=== PATIENT | female | born 1950 | race Caucasian/White ===

== ENCOUNTER 2018-08-28 13:30 | Emergency (ER) | payer MEDICARE, OTHER, SELFPAY ==
--- NOTE | 2018-08-28 15:42 | RAD REPORT ---
EXAM DESCRIPTION: RAD - Chest Pa And Lat (2 Views) - 08/28/2018 2:56 pm CLINICAL HISTORY: Cough and congestion COMPARISON: March 2016 TECHNIQUE: PA and lateral views of the chest were obtained. FINDINGS: The lungs are fibrotic as a baseline. Interstitial pattern is not clearly different from c omparison. Extent of chronic disease could mask the earliest stages of an interstitial infiltrate. Lateral view shows masslike density at the anterior base. This is probably an enlarged pericardial fa t pad rather than a mass. However, CT chest imaging would be recommended to exclude mass or infiltrat e. Heart size is normal and central vasculature is within normal limits. No pleural effusion or pneu mothorax seen. No acute bony finding noted. No aortic abnormality. Right lung base findings telephoned to the referring clinician [id number] hours. IMPRESSION: New masslike density anterior right lung base could be an enlarging pericardial fat pad since 2015, focal infiltrate or mass lesion. Chronic interstitial lung disease is present potentially masking early interstitial edema or infiltra te.
[2018-08-28 16:06] LABS: Absolute Lymphocytes (CBC) 1.2 K/uL (0.7-4.9); Absolute Monocytes 0.5 K/uL (0.1-1.3); Absolute Neutrophil 5.7 K/uL (1.8-8.0); Basophils % 0.5 % (0-1.3); Eosinophils % 0.8 % (0-4.4); Hematocrit 40.2 % (36.0-45.0); Lymphocytes % 15.6 % (15.3-44.8); MPV 7.8 fL (7.6-11.3); Monocytes % 6.9 % (3.3-12.3); RBC Red Blood Cell Count 4.04 M/uL (3.86-4.86)
[2018-08-28 16:21] LABS: Potassium 4.3 mmol/L (3.5-5.1)
--- NOTE | 2018-08-28 17:17 | RAD REPORT ---
EXAM DESCRIPTION: CT - Thorax W/ Con - 08/28/2018 4:56 pm CLINICAL HISTORY: Cough, chills, abnormal chest film, history of uterine cancer COMPARISON: Two view chest August 28 TECHNIQUE: Dynamically enhanced 5 mm thick images of the chest were obtained during administration o f 100 mL non-ionic IV contrast. All CT scans are performed using dose optimization technique as appropriate and may include automated exposure control or mA/KV adjustment according to patient size. FINDINGS: No mass or infiltrate of the lung parenchyma. Patient has minimal apical and lung base sca rring changes. The right anterior lung base mass seen on chest film represents a pericardial fat pad that has enlarged since the 2016 chest examination. No pleural thickening or pleural effusion. No pne umothorax. No chest wall mass or abnormal axillary lymphadenopathy. No abnormal mediastinal or hilar mass or lymphadenopathy seen. No pericardial thickening or effusion. Coronary artery calcifications are present. Aortic atherosclerotic calcifications are present. IMPRESSION: Minimal scarring changes with no mass or infiltrate of the lung parenchyma. The new masslike density at the anterior right lung base is pericardial fat that has enlarged since 2 016 imaging.
--- NOTE | 2018-08-28 17:32 | ER ---
Nurse's Notes [facility] Name: Sigrid Angel Age: 67 yrs Sex: Female : 1950 Arrival Date: 08/28/2018 Time: 13:34 Bed 9 Private MD: Diagnosis: Acute upper respiratory infection, unspecified Presentation: 08/28 13:39 Presenting complaint: Patient states: in the last few days i have been coughing with hj green stuff; reports chills; took dayquil CATTLE DEHORNER;. Transition of care: patient was not received from another setting of care. Onset of symptoms was August 28, 2018. Risk Assessment: Do you want to hurt yourself or someone else? Patient reports no desire to harm self or others. Initial Sepsis Screen: Does the patient meet any 2 criteria? No. Patient's initial sepsis screen is negative. Does the patient have a suspected source of infection? No. Patient's initial sepsis screen is negative. Care prior to arrival: None. 13:39 Method Of Arrival: Ambulatory 13:39 Acuity: JAYE 4 hj Triage Assessment: 13:41 General: Appears in no apparent distress. uncomfortable, Behavior is calm, cooperative, hj appropriate for age. Pain: Complains of pain in body. Historical: - Allergies: 13:41 Codeine; hj 13:41 Sulfa (Sulfonamide Antibiotics); hj - PMHx: 13:41 Hypertension; uterus CA; hj - PSHx: 13:41 hip sx; Hysterectomy; hj - Immunization history:: Adult Immunizations up to date. - Social history:: Smoking status: Patient uses tobacco products, Patient uses alcohol. - Ebola Screening: : Patient negative for fever greater than or equal to 101.5 degrees Fahrenheit, and additional compatible Ebola Virus Disease symptoms Patient denies exposure to infectious person Patient denies travel to an Ebola-affected area in the 21 days before illness onset. Screenin:41 Abuse screen: Denies threats or abuse. Denies injuries from another. Nutritional hj screening: No deficits noted. Tuberculosis screening: No symptoms or risk factors identified. Fall Risk None identified. Assessment: 15:17 General: Appears in no apparent distress. comfortable, Behavior is calm, cooperative. mg2 Pain: Denies pain. Neuro: Level of Consciousness is awake, alert, obeys commands, Oriented to person, place, time, situation. Cardiovascular: Capillary refill < 3 seconds Patient's skin is warm and dry. Respiratory: Airway is patent Respiratory effort is even, unlabored, Respiratory pattern is regular, symmetrical. Respiratory: Reports cough that is non-productive. GI: No signs and/or symptoms were reported involving the gastrointestinal system. : No signs and/or symptoms were reported regarding the genitourinary system. EENT: No signs and/or symptoms were reported regarding the EENT system. Derm: Skin is intact, is healthy with good turgor, Skin is pink, warm \T\ dry. normal. Musculoskeletal: No signs and/or symptoms reported regarding the musculoskeletal system. 16:49 Reassessment: Patient appears in no apparent distress at this time. patient sent to ct mg2 scan. 17:12 Reassessment: provider informed about the blood pressure. patient is asymptomatic. mg2 Vital Signs: 13:42 BP 139 / 100; Pulse 79; Resp 18; Temp 97.8(TE); Pulse Ox 97% on R/A; Weight 82.55 kg; hj Height 5 ft. 7 in. (170.18 cm); Pain 2/10; 16:49 BP 202 / 103; Pulse 70; Resp 18; Pulse Ox 100% on R/A; Pain 0/10; mg2 17:42 BP 169 / 87; Pulse 70; Resp 18; Pulse Ox 100% on R/A; Pain 0/10; mg2 13:42 Body Mass Index 28.50 (82.55 kg, 170.18 cm) ED Course: 13:34 Patient arrived in ED. mr 13:40 Triage completed. hj 13:41 Arm band placed on right wrist. hj 13:41 Patient has correct armband on for positive identification. Bed in low position. Call light in reach. Side rails up X 1. 14:17 Rosina Perry FNP-C [facility]. kb 14:17 Perez Heredia MD is Attending Physician. kb 14:20 Laila Salguero, PATI is Primary Nurse. iw 14:47 Patient moved to radiology via wheelchair. jb2 14:53 Chest Pa And Lat (2 Views) XRAY In Process Unspecified. EDMS 15:10 No provider procedures requiring assistance completed. mg2 15:43 Radiology exam delayed due to lab results not completed at this time. (BUN/Creatinine). vm2 16:04 Inserted saline lock: 20 gauge in right antecubital area, using aseptic technique. mg2 Blood collected. 16:09 Radiology exam delayed due to lab results not completed at this time. (BUN/Creatinine). nj 16:[address] la 16:56 CT Chest W/ Con In Process Unspecified. EDGA 16:56 CT completed. Patient tolerated procedure well. Patient moved back from GA. nj 17:42 IV discontinued, intact, bleeding controlled, No redness/swelling at site. Pressure mg2 dressing applied. Administered Medications: 17:31 Not Given (Patient Refused): cloNIDine 0.2 mg PO once kb Outcome: 17:31 Discharge ordered by . kb 17:42 Discharged to home ambulatory. mg2 17:42 Condition: stable 17:42 Discharge instructions given to patient, Instructed on discharge instructions, follow up and referral plans. Demonstrated understanding of instructions, follow-up care. 17:42 Patient left the ED. mg2 Signatures: Dispatcher [employer] EDGA Rosina Perry, RIRI CAR INSPECTION AND REPAIR MANAGER-Cristin RobisonaInocencia mr Chavez Azeem 2 Laila Salguero, RN RN Chucho Rachel, RN RN Darin Devries Victoria 2 Kong Buitrago, RN RN mg2 Corrections: (The following items were deleted from the chart) 13:45 13:42 Pulse 79bpm; Resp 18bpm; Pulse Ox 97% RA; Temp 97.8F Temporal; 82.55 kg; Height 5 hj ft. 7 in.; BMI: 28.5; Pain 2/10; hj 16:05 15:10 Patient did not have IV access during this emergency room visit. mg2 mg2
--- NOTE | 2018-08-28 17:32 | EDPHYS ---
Physician Documentation [facility] Name: Sigrid Angel Age: 67 yrs Sex: Female : 1950 Arrival Date: 08/28/2018 Time: 13:34 Bed 9 Private MD: ED Physician Perez Heredia HPI: 08/28 16:10 This 67 yrs old Female presents to ER via Ambulatory with complaints of Flu kb Symptoms. 16:10 The patient or guardian reports cough, that is intermittent, described as moderate, kb with productive sputum, that is green, flu symptoms, chills. Onset: The symptoms/episode began/occurred 3 day(s) ago. Severity of symptoms: At their worst the symptoms were mild, moderate, in the emergency department the symptoms are unchanged. Modifying factors: The symptoms are alleviated by nothing, the symptoms are aggravated by nothing. Associated signs and symptoms: The patient has no apparent associated signs or symptoms. The patient has not experienced similar symptoms in the past. The patient has not recently seen a physician. Historical: - Allergies: 13:41 Codeine; hj 13:41 Sulfa (Sulfonamide Antibiotics); hj - PMHx: 13:41 Hypertension; uterus CA; hj - PSHx: 13:41 hip sx; Hysterectomy; hj - Immunization history:: Adult Immunizations up to date. - Social history:: Smoking status: Patient uses tobacco products, Patient uses alcohol. - Ebola Screening: : Patient negative for fever greater than or equal to 101.5 degrees Fahrenheit, and additional compatible Ebola Virus Disease symptoms Patient denies exposure to infectious person Patient denies travel to an Ebola-affected area in the 21 days before illness onset. ROS: 16:10 ENT: Negative for injury, pain, and discharge, Neck: Negative for injury, pain, and kb swelling, Cardiovascular: Negative for chest pain, palpitations, and edema, Abdomen/GI: Negative for abdominal pain, nausea, vomiting, diarrhea, and constipation, Back: Negative for injury and pain, MS/Extremity: Negative for injury and deformity, Skin: Negative for injury, rash, and discoloration, Neuro: Negative for headache, weakness, numbness, tingling, and seizure. 16:10 Constitutional: Positive for chills, malaise, Negative for body aches, fatigue, fever, poor PO intake, weight loss. 16:10 Respiratory: Positive for cough, with green sputum, Negative for dyspnea on exertion, hemoptysis, orthopnea, pleurisy, shortness of breath, wheezing. Exam: 16:10 Constitutional: This is a well developed, well nourished patient who is awake, alert, kb and in no acute distress. Head/Face: Normocephalic, atraumatic. ENT: Nares patent. No nasal discharge, no septal abnormalities noted. Tympanic membranes are normal and external auditory canals are clear. Oropharynx with no redness, swelling, or masses, exudates, or evidence of obstruction, uvula midline. Mucous membranes moist. Neck: Trachea midline, no thyromegaly or masses palpated, and no cervical lymphadenopathy. Supple, full range of motion without nuchal rigidity, or vertebral point tenderness. No Meningismus. Chest/axilla: Normal chest wall appearance and motion. Nontender with no deformity. No lesions are appreciated. Cardiovascular: Regular rate and rhythm with a normal S1 and S2. No gallops, murmurs, or rubs. Normal PMI, no JVD. No pulse deficits. Respiratory: Lungs have equal breath sounds bilaterally, clear to auscultation and percussion. No rales, rhonchi or wheezes noted. No increased work of breathing, no retractions or nasal flaring. Abdomen/GI: Soft, non-tender, with normal bowel sounds. No distension or tympany. No guarding or rebound. No evidence of tenderness throughout. Back: No spinal tenderness. No costovertebral tenderness. Full range of motion. Skin: Warm, dry with normal turgor. Normal color with no rashes, no lesions, and no evidence of cellulitis. MS/ Extremity: Pulses equal, no cyanosis. Neurovascular intact. Full, normal range of motion. Neuro: Awake and alert, GCS 15, oriented to person, place, time, and situation. Cranial nerves II-XII grossly intact. Motor strength 5/5 in all extremities. Sensory grossly intact. Cerebellar exam normal. Normal gait. Vital Signs: 13:42 BP 139 / 100; Pulse 79; Resp 18; Temp 97.8(TE); Pulse Ox 97% on R/A; Weight 82.55 kg; hj Height 5 ft. 7 in. (170.18 cm); Pain 2/10; 16:49 BP 202 / 103; Pulse 70; Resp 18; Pulse Ox 100% on R/A; Pain 0/10; mg2 17:42 BP 169 / 87; Pulse 70; Resp 18; Pulse Ox 100% on R/A; Pain 0/10; mg2 13:42 Body Mass Index 28.50 (82.55 kg, 170.18 cm) MDM: 14:17 Patient medically screened. kb 16:12 Data reviewed: vital signs, nurses notes. Data interpreted: Pulse oximetry: on room air kb is 97 %. Interpretation: normal. 17:28 Counseling: I had a detailed discussion with the patient and/or guardian regarding: the kb historical points, exam findings, and any diagnostic results supporting the discharge/admit diagnosis, lab results, radiology results, the need for outpatient follow up, a family practitioner, to return to the emergency department if symptoms worsen or persist or if there are any questions or concerns that arise at home. 17:32 ED course: Pt does not want any medication for her blood pressure. States "I normally kb take cinnamon and honey for my high blood pressure and I didn't take any today.". 08/28 13:44 Order name: Flu; Complete Time: 14:17 08/28 13:44 Order name: Strep; Complete Time: 14:17 08/28 14:17 Order name: Throat Culture EDOR 08/28 14:36 Order name: Chest Pa And Lat (2 Views) XRAY; Complete Time: 15:44 kb 08/28 15:40 Order name: CBC with Diff; Complete Time: 16:10 kb 08/28 15:40 Order name: Basic Metabolic Panel; Complete Time: 16:33 kb 08/28 15:40 Order name: CT Chest W/ Con; Complete Time: 17:21 kb Administered Medications: 17:31 Not Given (Patient Refused): cloNIDine 0.2 mg PO once kb Disposition: 08/29 15:50 Co-signature as Attending Physician, Perez Heredia MD I agree with the assessment and kdr plan of care. Disposition: 08/28/18 17:31 Discharged to Home. Impression: Acute upper respiratory infection, unspecified. - Condition is Stable. - Discharge Instructions: Upper Respiratory Infection, Adult, [id number]. - Medication Reconciliation Form, Thank You Letter, Antibiotic Education, Prescription Opioid Use form. - Follow up: Emergency Department; When: As needed; Reason: Worsening of condition. Follow up: Private Physician; When: 2 - 3 days; Reason: Recheck today's complaints, Continuance of care, Re-evaluation by your physician. Signatures: Dispatcher [employer] EDMS Rosina Perry, INSURANCE HEALTHCARE REPRESENTATIVE-C INSURANCE HEALTHCARE REPRESENTATIVE-Perez Pacheco MD MD [facility] Chucho Rachel RN RN hj Kong Buitrago RN RN mg2 Corrections: (The following items were deleted from the chart) 08/28 17:42 17:31 08/28/2018 17:31 Discharged to Home. Impression: Acute upper respiratory mg2 infection, unspecified. Condition is Stable. Forms are Medication Reconciliation Form, Thank You Letter, Antibiotic Education, Prescription Opioid Use. Follow up: Emergency Department; When: As needed; Reason: Worsening of condition. Follow up: Private Physician; When: 2 - 3 days; Reason: Recheck today's complaints, Continuance of care, Re-evaluation by your physician. kb
== END 2018-08-28 17:42 | disposition home or self-care (01) ==
LOC: ER 13:30
DX: J06.9 Acute upper respiratory infection, unspecified (principal); I10 Essential (primary) hypertension; Z72.0 Tobacco use; Z88.2 Allergy status to sulfonamides; Z88.5 Allergy status to narcotic agent; Z85.42 Personal history of malignant neoplasm of other parts of uterus
CPT/HCPCS: 36415; 71046; 71260; 80048; 85025; 87070; 87081; 87804; 99284; Q9967

== ENCOUNTER 2019-07-05 08:47 | Emergency (ER) | payer OTHER ==
--- NOTE | 2019-07-05 09:45 | RAD REPORT ---
EXAM DESCRIPTION: CT - [id number] - 07/05/2019 9:33 am CLINICAL HISTORY: Trauma, head and neck injury. LOWER BACK PAIN COMPARISON: No comparisons TECHNIQUE: Axial 5 mm thick images of the head were obtained. Axial 2 mm thick images of the cervical spine were obtained with sagittal and coronal reconstruction images generated and reviewed. All CT scans are performed using dose optimization technique as appropriate and may include automated exposure control or mA/KV adjustment according to patient size. FINDINGS: CT HEAD WITHOUT CONTRAST: No acute hemorrhage, hydrocephalus or extra-axial collection is identified.Moderate generalized brain atrophy is present with moderate periventricular and deep white matter chronic microvascular ischemi c changes.No areas of brain edema or midline shift. The paranasal sinuses and mastoids are clear.The calvarium is intact. CT CERVICAL SPINE WITHOUT CONTRAST: No fracture or subluxation.Moderate lower cervical degenerative changes.No prevertebral soft tissues swelling is identified. IMPRESSION: No acute intracranial or cervical spine findings. Moderate lower cervical degenerative changes.
--- NOTE | 2019-07-05 10:44 | RAD REPORT ---
EXAM DESCRIPTION: CTThoracic Spine W/o Cont07/05/2019 10:30 am CLINICAL HISTORY: Back injury with Back pain status post fall COMPARISON: None TECHNIQUE: Computed axial tomography of thoracic spine was obtained with coronal and sagittal recons truction. All CT scans are performed using dose optimization technique as appropriate and may include automated exposure control or mA/KV adjustment according to patient size. FINDINGS: No fracture is seen. No dislocation is noted. A large bulging disc /herniation is not seen. Increased density within the gallbladder probably indicate stones IMPRESSION: Negative for a thoracic fracture If the patient has clinical symptoms to suggest spinal cord pathology then MRI would be recommended.
--- NOTE | 2019-07-05 10:50 | RAD REPORT ---
EXAM DESCRIPTION: CTSpine Lumbar Wo Con07/05/2019 10:32 am CLINICAL HISTORY: Back injury with back pain status post fall COMPARISON: None TECHNIQUE: Computed axial tomography lumbar spine was obtained with coronal and sagittal reconstruct ion. All CT scans are performed using dose optimization technique as appropriate and may include automated exposure control or mA/KV adjustment according to patient size. FINDINGS: No fracture is seen. No dislocation is noted. A large bulging/disc herniation is not seen Bilateral nonobstructing renal calculi IMPRESSION: Negative for a lumbar fracture.
--- NOTE | 2019-07-05 11:15 | RAD REPORT ---
EXAM DESCRIPTION: RAD - Chest Single View - 07/05/2019 10:42 am CLINICAL HISTORY: weakness Chest pain. COMPARISON: Chest Pa And Lat (2 Views) dated 08/28/2018; Chest Pa And Lat (2 Views) dated 03/29/2016; ABDOMEN 1 VIEW KUB dated 08/27/2014; Thorax W/ Con dated 08/28/2018 FINDINGS: Portable technique limits examination quality. The lungs are grossly clear. The heart is mildly prominent in size. No displaced fractures. IMPRESSION: No acute intrathoracic process suspected.
--- NOTE | 2019-07-05 11:16 | RAD REPORT ---
EXAM DESCRIPTION: RAD - Hip Left 2 View - 07/05/2019 10:42 am CLINICAL HISTORY: Let hip;Lower back pain;Pain COMPARISON: No comparisons FINDINGS: No acute fracture or dislocation is seen.
--- NOTE | 2019-07-05 11:18 | RAD REPORT ---
EXAM DESCRIPTION: RAD - Hip Right 2 View - 07/05/2019 10:42 am CLINICAL HISTORY: PAIN COMPARISON: No comparisons FINDINGS: No fracture, dislocation or AVN.
[2019-07-05 12:25] LABS: Protime INR 1.02
[2019-07-05 12:30] LABS: Absolute Lymphocytes (CBC) 0.1 K/uL (0.7-4.9); Basophils % 0.5 % (0-1.3); Hematocrit 37.8 % (36.0-45.0); Lymphocytes % 1.5 % (15.3-44.8); MPV 7.8 fL (7.6-11.3); RBC Red Blood Cell Count 3.89 M/uL (3.86-4.86)
[2019-07-05] MEDS ORDERED: NA CHLORIDE 0.9% 500 ML ONE (12:41)
[2019-07-05] MEDS ORDERED: LORazepam 2 MG/ML VIAL ONE (12:41)
[2019-07-05 12:43] LABS: ALT/SGPT 23 U/L (12-78); AST/SGOT 19 U/L (15-37); Albumin 3.4 g/dL (3.4-5.0); Alkaline Phosphatase 81 U/L (45-117); BUN Blood Urea Nitrogen 14 mg/dL (7-18); Bicarbonate 29 mmol/L (21-32); Bilirubin Direct 0.2 mg/dL (0-0.2); Bilirubin Total 1.2 mg/dL (0.2-1.0); Creatine Phosphokinase 118 U/L (26-192); Glucose Level 109 mg/dL (74-106); Magnesium 2.1 mg/dL (1.8-2.4); NT PRO-BNP 264 pg/mL (<125); Potassium 3.8 mmol/L (3.5-5.1); Protein, Total 7.2 g/dL (6.4-8.2); Sodium Level 139 mmol/L (136-145); Troponin (Emerg Dept Use Only) < 0.02 ng/mL (0.0-0.045)
[2019-07-05 12:57] LABS: Blood Morphology Comment NOT SEEN (NOT SEEN); Platelet Estimate ADEQ
--- NOTE | 2019-07-05 17:24 | EKG ---
Test Date: 2019-07-05 Test Time: 09:10:19 Production Weigher: LUDWIN MEASUREMENT RESULTS: Intervals: Rate: 84 LA: 162 QRSD: 78 QT: 382 QTc: 451 [place]: P: 54 LA: 162 QRS: 31 T: 70 INTERPRETIVE STATEMENTS: Normal sinus rhythm Normal ECG Compared to ECG 03/26/2001 14:17:00 No significant changes Electronically Signed On 07-05-19 17:21:44 BALLISTICS PROFESSOR by Kamari Don
--- NOTE | 2019-07-05 17:47 | ER ---
Nurse's Notes [facility] Name: Sigrid Angel Age: 68 yrs Sex: Female : 1950 Arrival Date: 07/05/2019 Time: 08:51 Bed 2 Private MD: Diagnosis: Other slipping, tripping and stumbling and falls;Back and spine paim, Muscle cramps Presentation: 07/05 08:51 Presenting complaint: EMS states: FALL LAST PM AT 2000 AFTER DRINKING, LAID ON FLOOR bp ALL NIGHT, NOW C/O HIP AND BACK PAIN. Care prior to arrival: None. Mechanism of Injury: Fall from standing position. Trauma event details: Injury occurred in the [facility], Injury occurred: at home. Injury occurred: July 04, 2019 Injury occurred at: 20:00. 08:51 Acuity: JAYE 3 bp 08:51 Method Of Arrival: EMS: [facility] bp 08:56 Transition of care: patient was not received from another setting of care. Onset of bp symptoms was July 04, 2019 at 20:00. Risk Assessment: Do you want to hurt yourself or someone else? Patient reports no desire to harm self or others. Initial Sepsis Screen: Does the patient meet any 2 criteria? No. Patient's initial sepsis screen is negative. Does the patient have a suspected source of infection? No. Patient's initial sepsis screen is negative. Triage Assessment: 08:59 General: SEE TRAUMA TAB. bp Trauma Activation: Not Applicable Physician: ED Physician; Name: ; Notified At: ; Arrived At: Physician: General Surgeon; Name: ; Notified At: ; Arrived At: Physician: Radiology; Name: ; Notified At: ; Arrived At: Physician: Respiratory; Name: ; Notified At: ; Arrived At: Physician: Lab; Name: ; Notified At: ; Arrived At: Historical: - Allergies: 08:58 Codeine; bp 08:58 Sulfa (Sulfonamide Antibiotics); bp - Home Meds: 08:58 aspirin 81 mg Oral chew 1 tab once daily [Active]; bp - PMHx: 08:58 Hypertension; uterus CA; ESOPHAGEAL VARICES; COPD; bp - Immunization history: Last tetanus immunization: - up to date. - Social history:: Smoking status: Patient uses tobacco products, unknown amount. - Ebola Screening: : No symptoms or risks identified at this time. Screenin:51 Abuse screen: Denies threats or abuse. Denies injuries from another. Tuberculosis bp screening: No symptoms or risk factors identified. Never had TB. 20:12 Nutritional screening: No deficits noted. Fall Risk Ambulatory Aid- None/Bed Rest/Nurse jd3 Assist (0 pts). Gait- Weak (10 pts.). Mental Status- Overestimates/Forgets Limitations (15 pts.). Total Cesar Fall Scale indicates Low Risk Score (25-44 pts). Fall prevention measures have been instituted. Side Rails Up X 2 Placed close to Nursing Station Frequent Obs/Assesments occuring. Primary Survey: 08:51 NO uncontrolled hemorrhage observed. A: The patient is alert. Airway: patent. bp Breathing/Chest: Respiratory pattern: regular, Respiratory effort: spontaneous, unlabored. Circulation: Skin temperature: warm, dry. Disability Alert. Exposure/Environment: All clothing and personal items were removed. Forensic evidence collection is not deemed to be indicated at this time. Items placed in patient belonging bag. 19:00 Reassessment Airway Airway Patent Oxygen No O2 Oral cavity Clear Trachea Midline jd3 Breathing/Chest Respiratory pattern Regular Respiratory effort Spontaneous Unlabored Chest inspection Symmetrical Circulation Pulses Palpable Color [place] Temperature Warm Disability Alert. Secondary Survey: 08:51 NO APPARENT TRAUMA. bp Assessment: 08:51 General: Appears in no apparent distress. comfortable, obese, Behavior is cooperative, bp appropriate for age, anxious. Pain: Complains of pain in back and buttocks. Neuro: Level of Consciousness is awake, alert, obeys commands, Oriented to person, place, time, situation, Appropriate for age. EENT: No deficits noted. Cardiovascular: No deficits noted. Respiratory: No deficits noted. GI: No signs and/or symptoms were reported involving the gastrointestinal system. : No signs and/or symptoms were reported regarding the genitourinary system. Derm: No deficits noted. Musculoskeletal: Reports weakness in GENERALIZED. 10:30 Reassessment: PT RETURNED FROM CT, ALL CURRENT ORDERS COMPLETED. bp 12:00 Reassessment: LABS RECOLLECTED AND SENT. bp 13:06 Reassessment: PT SLEEPING, ALL CURRENT ORDERS COMPLETED. bp 15:01 Reassessment: PT SLEEPING, SOBRIETY PENDING FOR DISPO. bp 17:00 Reassessment: PT SLEEPING SOUNDLY, AROUSABLE TO PHYSICAL STIMULI. bp 18:06 Reassessment: PT AWAKE, AO4, TRANSPORT HOME EN ROUTE. bp 19:19 General: Appears in no apparent distress. comfortable, Behavior is calm, cooperative, jd3 appropriate for age, awaiting family for ride for discharge. charge nurse notified.. Pain: Denies pain. Neuro: Level of Consciousness is awake, alert, obeys commands, Oriented to person, place, time, situation. Cardiovascular: Capillary refill < 3 seconds Patient's skin is warm and dry. Respiratory: Airway is patent Respiratory effort is even, unlabored, Respiratory pattern is regular, symmetrical. GI: No signs and/or symptoms were reported involving the gastrointestinal system. : No signs and/or symptoms were reported regarding the genitourinary system. EENT: No signs and/or symptoms were reported regarding the EENT system. Derm: Skin is intact, Skin is dry, Skin is normal, Skin temperature is warm. Derm: Skin is intact, Skin is dry, Skin is normal, Skin temperature is warm. Musculoskeletal: Circulation, motion, and sensation intact. Range of motion: intact in all extremities. 20:10 Reassessment: Patient appears in no apparent distress at this time. No changes from jd3 previously documented assessment. Patient and/or family updated on plan of care and expected duration. Pain level reassessed. Patient is alert, oriented x 3, equal unlabored respirations, skin warm/dry/pink. pt reported she will call family again for transportation home. 21:08 Reassessment: Patient appears in no apparent distress at this time. Patient and/or jd3 family updated on plan of care and expected duration. Pain level reassessed. Patient is alert, oriented x 3, equal unlabored respirations, skin warm/dry/pink. pt assisted to bathroom back to room with wheelchair. pt back in room calling family and friends for ride home. 21:45 Reassessment: Patient appears in no apparent distress at this time. Patient and/or jd3 family updated on plan of care and expected duration. Pain level reassessed. Patient is alert, oriented x 3, equal unlabored respirations, skin warm/dry/pink. pt called again for ride home. reported to nursing staff she has a ride on the way and didn't want to wait in the room. pt assisted to front of ER with wheelchair. pt reported understanding of discharge instructions. Vital Signs: 08:51 BP 133 / 95; Pulse 89; Resp 17; Temp 97.8; Pulse Ox 95% ; Weight 85.73 kg; Height 5 ft. bp 7 in. (170.18 cm); 10:30 BP 168 / 73; Pulse 82; Resp 16; Pulse Ox 97% ; bp 12:00 BP 168 / 81; Pulse 89; Resp 16; Pulse Ox 95% ; bp 13:00 BP 139 / 93; Pulse 86; Resp 16; Pulse Ox 95% ; bp 15:01 BP 147 / 85; Pulse 88; Resp 14; Pulse Ox 99% ; bp 16:11 BP 154 / 69; Pulse 92; Resp 16; Pulse Ox 93% ; bp 18:07 BP 171 / 95; Pulse 96; Resp 14; Pulse Ox 92% ; bp 19:20 BP 122 / 67; Pulse 83; Resp 18 S; Pulse Ox 97% on R/A; jd3 20:11 BP 139 / 72; Pulse 88; Resp 17 S; Pulse Ox 97% on R/A; jd3 08:51 Body Mass Index 29.60 (85.73 kg, 170.18 cm) bp [place] Com[place] Score: 08:51 Eye Response: spontaneous(4). Verbal Response: oriented(5). Motor Response: obeys bp commands(6). Total: 15. Trauma Score (Adult): 08:51 Eye Response: spontaneous(1); Verbal Response: oriented(1); Motor Response: obeys bp commands(2); Systolic BP: > 89 mm Hg(4); Respiratory Rate: 10 to 29 per min(4); Chavez Score: 15; Trauma Score: 12 ED Course: 08:51 Patient arrived in ED. bp 08:51 Perez Heredia MD is Attending Physician. kdr 08:51 Patient has correct armband on for positive identification. Bed in low position. Call bp light in reach. Side rails up X2. 08:51 Patient maintains SpO2 saturation greater than 95% on room air. Thermoregulation: warm bp blanket given to patient. 08:53 Triage completed. bp 08:58 Arm band placed on. bp 09:12 EKG done, by development technician. reviewed by Perez Heredia MD. at1 09:26 Initial lab(s) drawn, by vt, sent to lab. Inserted saline lock: 22 gauge in right jb1 antecubital area, using aseptic technique. Blood collected. 09:33 CT Head C Spine In Process Unspecified. EDMS 09:58 Hubert Jean, RN is Primary Nurse. bp 10:30 CT Thoracic Spine Wo Cont In Process Unspecified. EDMS 10:31 CT Lumbar Spine Wo Con In Process Unspecified. EDMS 10:44 Hip Left 2 View XRAY In Process Unspecified. EDMS 10:44 XRAY Chest (1 view) In Process Unspecified. EDMS 10:44 Hip Right 2 View XRAY In Process Unspecified. EDMS 21:46 No provider procedures requiring assistance completed. IV discontinued, intact, jd3 bleeding controlled, No redness/swelling at site. Pressure dressing applied. Administered Medications: 12:45 Drug: NS 0.9% 500 ml Route: IV; Rate: 1 bolus; Site: right antecubital; bp 17:54 Follow up: IV Status: Completed infusion; IV Intake: 500ml bp 12:45 Drug: Ativan 1 mg Route: IVP; Site: right antecubital; bp 17:52 Follow up: Response: Anxiety decreased bp 18:01 Drug: TORadol - Ketorolac 15 mg Route: IVP; Site: right antecubital; bp 19:00 Follow up: Response: No adverse reaction jd3 Intake: 08:51 PO: 0ml; Total: 0ml. bp 17:54 IV: 500ml; Total: 500ml. bp Output: 08:51 Urine: 0ml; Total: 0ml. bp Outcome: 17:46 Discharge ordered by MD. kdr 21:47 Discharged to home via wheelchair, with friend. jd3 21:47 Condition: stable 21:47 Discharge instructions given to patient, Instructed on discharge instructions, follow up and referral plans. medication usage, Demonstrated understanding of instructions, follow-up care, medications, Prescriptions given X 2. 21:47 Patient's length of stay in the Emergency Department was greater than 2 hours. waiting j for ridePatient's length of stay extended due to 21:47 Patient left the ED. jd3 Signatures: Dispatcher [employer] EDMS Thad Fuentes jb1 Perez Heredia MD MD kdr Gonzales, Amanda, superintendent factory EKG Tat1 Jimmy Matos RN RN Hubert Daley, RN RN bp Corrections: (The following items were deleted from the chart) 20:11 19:19 General: Appears in no apparent distress. comfortable, Behavior is calm, jd3 cooperative, appropriate for age, jd3 21:46 19:19 General: Appears in no apparent distress. comfortable, Behavior is calm, jd3 cooperative, appropriate for age, awaiting family for ride for discharge.. jd3
--- NOTE | 2019-07-05 17:48 | EDPHYS ---
Physician Documentation [facility] Name: Sigrid Angel Age: 68 yrs Sex: Female : 1950 Arrival Date: 07/05/2019 Time: 08:51 Bed 2 Private MD: ED Physician Perez Heredia HPI: 07/05 17:50 This 68 yrs old Female presents to ER via EMS with complaints of Fall Injury. kdr 17:50 Details of fall: The patient fell from an upright position, while standing. Onset: The kdr symptoms/episode began/occurred last night. Associated injuries: The patient sustained injury to the head, upper back injury, injury to the low back, Bilateral hips. Severity of symptoms: At their worst the symptoms were mild, moderate, in the emergency department the symptoms are unchanged. The patient has not experienced similar symptoms in the past. The patient has not recently seen a physician. The patient had several drinks last night to celebrate her husbands birthday. She apparently fell to the floor and was not able to get back up until neighbors came and checked on her this morning. She denies any other injuries or issues at this time. She had chronic spinal pain which she states is worse today and muscle spasms which she states she need to have "pickle juice" to resolve.. Historical: - Allergies: 08:58 Codeine; bp 08:58 Sulfa (Sulfonamide Antibiotics); bp - Home Meds: 08:58 aspirin 81 mg Oral chew 1 tab once daily [Active]; bp - PMHx: 08:58 Hypertension; uterus CA; ESOPHAGEAL VARICES; COPD; bp - Immunization history: Last tetanus immunization: - up to date. - Social history:: Smoking status: Patient uses tobacco products, unknown amount. - Ebola Screening: : No symptoms or risks identified at this time. ROS: 17:50 Constitutional: Negative for fever, chills, and weight loss, Eyes: Negative for injury, kdr pain, redness, and discharge, Neck: Negative for injury, pain, and swelling, Cardiovascular: Negative for chest pain, palpitations, and edema, Respiratory: Negative for shortness of breath, cough, wheezing, and pleuritic chest pain, Abdomen/GI: Negative for abdominal pain, nausea, vomiting, diarrhea, and constipation, : Negative for injury, bleeding, discharge, and swelling, Skin: Negative for injury, rash, and discoloration, Neuro: Negative for headache, weakness, numbness, tingling, and seizure activity. Psych: Negative for depression, anxiety, suicide ideation, homicidal ideation, and hallucinations, Allergy/Immunology: Negative for hives, rash, and allergies, Endocrine: Negative for neck swelling, polydipsia, polyuria, polyphagia, and marked weight changes, Hematologic/Lymphatic: Negative for swollen nodes, abnormal bleeding, and unusual bruising. 17:50 Back: Positive for pain at rest, pain with movement, of the thoracic area and lumbar area. 17:50 MS/extremity: Positive for pain, of the thoracic area and lumbar area. Exam: 17:50 Constitutional: This is a well developed, well nourished patient who is awake, alert, kdr and in no acute distress. Head/Face: Normocephalic, atraumatic. Eyes: Pupils equal round and reactive to light, extra-ocular motions intact. Lids and lashes normal. Conjunctiva and sclera are non-icteric and not injected. Cornea within normal limits. Periorbital areas with no swelling, redness, or edema. Neck: Trachea midline, no thyromegaly or masses palpated, and no cervical lymphadenopathy. Supple, full range of motion without nuchal rigidity, or vertebral point tenderness. No Meningismus. Chest/axilla: Normal chest wall appearance and motion. Nontender with no deformity. No lesions are appreciated. Cardiovascular: Regular rate and rhythm with a normal S1 and S2. No gallops, murmurs, or rubs. Normal PMI, no JVD. No pulse deficits. Respiratory: Lungs have equal breath sounds bilaterally, clear to auscultation and percussion. No rales, rhonchi or wheezes noted. No increased work of breathing, no retractions or nasal flaring. Abdomen/GI: Soft, non-tender, with normal bowel sounds. No distension or tympany. No guarding or rebound. No evidence of tenderness throughout. Skin: Warm, dry with normal turgor. Normal color with no rashes, no lesions, and no evidence of cellulitis. MS/ Extremity: Pulses equal, no cyanosis. Neurovascular intact. Full, normal range of motion. Neuro: Awake and alert, GCS 15, oriented to person, place, time, and situation. Cranial nerves II-XII grossly intact. Motor strength 5/5 in all extremities. Sensory grossly intact. Cerebellar exam normal. Normal gait. Psych: Awake, alert, with orientation to person, place and time. Behavior, mood, and affect are within normal limits. 17:50 Back: pain, that is mild, that is moderate, of the thoracic area and lumbar area. Vital Signs: 08:51 BP 133 / 95; Pulse 89; Resp 17; Temp 97.8; Pulse Ox 95% ; Weight 85.73 kg; Height 5 ft. bp 7 in. (170.18 cm); 10:30 BP 168 / 73; Pulse 82; Resp 16; Pulse Ox 97% ; bp 12:00 BP 168 / 81; Pulse 89; Resp 16; Pulse Ox 95% ; bp 13:00 BP 139 / 93; Pulse 86; Resp 16; Pulse Ox 95% ; bp 15:01 BP 147 / 85; Pulse 88; Resp 14; Pulse Ox 99% ; bp 16:11 BP 154 / 69; Pulse 92; Resp 16; Pulse Ox 93% ; bp 18:07 BP 171 / 95; Pulse 96; Resp 14; Pulse Ox 92% ; bp 19:20 BP 122 / 67; Pulse 83; Resp 18 S; Pulse Ox 97% on R/A; jd3 20:11 BP 139 / 72; Pulse 88; Resp 17 S; Pulse Ox 97% on R/A; jd3 08:51 Body Mass Index 29.60 (85.73 kg, 170.18 cm) bp [place] Coma Score: 08:51 Eye Response: spontaneous(4). Verbal Response: oriented(5). Motor Response: obeys bp commands(6). Total: 15. Trauma Score (Adult): 08:51 Eye Response: spontaneous(1); Verbal Response: oriented(1); Motor Response: obeys bp commands(2); Systolic BP: > 89 mm Hg(4); Respiratory Rate: 10 to 29 per min(4); [place] Score: 15; Trauma Score: 12 MDM: 17:46 Patient medically screened. kdr 17:50 Data reviewed: vital signs, nurses notes. Counseling: I had a detailed discussion with kdr the patient and/or guardian regarding: the historical points, exam findings, and any diagnostic results supporting the discharge/admit diagnosis, lab results, radiology results, the need for outpatient follow up. ED course: The patient was complaining of muscle cramps and she was given Ativan which made her somnolent for an extended period of time. She is now awake and interacting appropriately. She is going to call her neighbor to come pick her up. 07/05 09:08 Order name: ETOH Level; Complete Time: 10:45 kdr 07/05 09:50 Order name: Basic Metabolic Panel; Complete Time: 13:01 kdr 07/05 09:50 Order name: CBC with Diff; Complete Time: 13:01 kdr 07/05 09:50 Order name: LFT's; Complete Time: 13:01 kdr 07/05 09:50 Order name: Magnesium; Complete Time: 13:01 kdr 07/05 09:50 Order name: NT PRO-BNP; Complete Time: 13:01 kdr 07/05 09:08 Order name: CT Head C Spine; Complete Time: 10:45 kdr 07/05 09:49 Order name: CT Thoracic Spine Wo Cont; Complete Time: 12:08 kdr 07/05 09:49 Order name: CT Lumbar Spine Wo Con; Complete Time: 12:08 kdr 07/05 09:49 Order name: Hip Left 2 View XRAY; Complete Time: 12:08 kdr 07/05 09:50 Order name: PT-INR; Complete Time: 13:01 kdr 07/05 09:50 Order name: Troponin (emerg Dept Use Only); Complete Time: 13:01 kdr 07/05 09:50 Order name: CPK; Complete Time: 13:01 kdr 07/05 12:58 Order name: Manual Differential; Complete Time: 13:01 EDMS 07/05 09:50 Order name: XRAY Chest (1 view); Complete Time: 12:08 kdr 07/05 09:50 Order name: EKG; Complete Time: 09:52 kdr 07/05 09:50 Order name: Cardiac monitoring; Complete Time: 09:59 kdr 07/05 09:50 Order name: EKG - Nurse/Tech; Complete Time: 09:59 kdr 07/05 09:50 Order name: IV Saline Lock; Complete Time: 09:59 kdr 07/05 09:50 Order name: Labs collected and sent; Complete Time: 09:59 kdr 07/05 09:50 Order name: O2 Per Protocol; Complete Time: 09:58 kdr 07/05 09:50 Order name: O2 Sat Monitoring; Complete Time: 09:58 kdr 07/05 10:17 Order name: Hip Right 2 View XRAY; Complete Time: 12:08 kdr Administered Medications: 12:45 Drug: NS 0.9% 500 ml Route: IV; Rate: 1 bolus; Site: right antecubital; bp 17:54 Follow up: IV Status: Completed infusion; IV Intake: 500ml bp 12:45 Drug: Ativan 1 mg Route: IVP; Site: right antecubital; bp 17:52 Follow up: Response: Anxiety decreased bp 18:01 Drug: TORadol - Ketorolac 15 mg Route: IVP; Site: right antecubital; bp 19:00 Follow up: Response: No adverse reaction jd3 Disposition: 07/05/19 17:46 Discharged to Home. Impression: Other slipping, tripping and stumbling and falls, Back and spine paim, Muscle cramps. - Condition is Stable. - Discharge Instructions: Chronic Back Pain, Back Pain, Adult, [id number], Muscle Cramps and Spasms, [id number], Fall Prevention in the Home, [id number]. - Prescriptions for ketorolac 10 mg Oral tablet - take 1 tablet by ORAL route every 4-6 hours not to exceed 40 mg in 24hrs; 15 tablet. Medrol (Steven) 4 mg Oral Tablets, Dose Pack - take 1 tablet by ORAL route as directed - follow package instructions; 1 packet. - Medication Reconciliation Form, Thank You Letter, SBAR form form. - Follow up: Private Physician; When: 2 - 3 days; Reason: If symptoms return, Further diagnostic work-up, Recheck today's complaints, Continuance of care, Re-evaluation by your physician. - Problem is new. - Symptoms have improved. Signatures: Dispatcher [employer] EDMS Perez Heredia MD MD kdr Jimmy Matos RN RN Hubert Daley RN RN bp Corrections: (The following items were deleted from the chart) 21:47 17:46 07/05/2019 17:46 Discharged to Home. Impression: Other slipping, tripping and jd3 stumbling and falls; Back and spine paim, Muscle cramps. Condition is Stable. Forms are SBAR form, Medication Reconciliation Form, Thank You Letter, Antibiotic Education, Prescription Opioid Use. Follow up: Private Physician; When: 2 - 3 days; Reason: If symptoms return, Further diagnostic work-up, Recheck today's complaints, Continuance of care, Re-evaluation by your physician. Problem is new. Symptoms have improved. kdr
[2019-07-05] MEDS ORDERED: KETOROLAC 30 MG/ML INJ ONE (17:56)
[2019-07-05 21:55] VITALS: TEMP 97.8
[2019-07-05 22:06] VITALS: O2SAT 97
[2019-07-05 22:08] VITALS: BP 139/72
--- OUTSIDE RECORDS SUMMARY | 2019-07-09 02:57 | XMS REPORT ---
:1950 [facility] Address [address] Jimenez [address] [place] [id number] Care Team Providers Name Role Phone Unavailable Unavailable Unavailable Problems This patient has no known problems. Allergies, Adverse Reactions, Alerts This patient has no known allergies or adverse reactions. Medications This patient has no known medications.
== END 2019-07-05 21:47 | disposition home or self-care (01) ==
LOC: ER 08:47
DX: M54.9 Dorsalgia, unspecified (principal); R25.2 Cramp and spasm; W01.0XXA Fall on same level from slipping, tripping and stumbling without subsequent striking against object, initial encounter; Y93.9 Activity, unspecified; Y92.9 Unspecified place or not applicable; Z88.6 Allergy status to analgesic agent; Z88.2 Allergy status to sulfonamides; Z72.0 Tobacco use
CPT/HCPCS: 93005; 85025; 80048; 36415; 80320; 83735; 82550; 85610; 80076; 84484; 83880; 72131; 70450; 72125; 72128; 71045; 73502 ×2; J7040; 96361; 96374; 96375; 99285

== ENCOUNTER 2021-11-20 15:06 | Emergency (ER) | payer OTHER ==
--- OUTSIDE RECORDS SUMMARY | 2021-11-20 15:12 | XMS REPORT | Continuity of Care Document ---
:1950 Author Organization [facility] t Address [address] [place] [address] Care Team Providers Name Role Phone Glez Primary Care Physician Doctor Unassigned, Name Attending Clinician Unavailable ROSARIO Attending Clinician Unavailable Aditya AWAD Attending Clinician Marlin AWAD S Attending Clinician Rosario AWAD Attending Clinician Brie CAZARES Attending Clinician Unavailable Debora JACINTO S Attending Clinician ROSARIO Admitting Clinician Unavailable Rosario AWAD Admitting Clinician Brie CAZARES Admitting Clinician Unavailable Payers Payer Name Policy Type Policy Number Effective Date Expiration Date S mark [employer] MEDICARE ADV [id number] 2018 00:00:00 Problems Condition Condition Condition Status Onset Resolution Last Treating Co mments Source Name Details Category Date Date Treatment Clinician Date Complaints Complaints Disease Active U nivers of of 3-02 ity of weakness weakness 00:00: [place] of lower of lower 00 Medica l extremity extremity Bran ch GI bleed GI bleed Disease Active Unive rs 1-04 ity of 00:00: [place] 00 Medical Branch Allergies, Adverse Reactions, Alerts Allergy Allergy Status Severity Reaction(s) Onset Inactive Treating Comm ents Source Name Type Date Date Clinician Sulfa Propensi Active Rash Univers (Sulfona ty to 1-07 ity of mide adverse 00:00: [place] Antibiot reaction 00 Medica l ics) s Branch SULFA Drug Active Rash Univers (SULFONA Class 1-07 ity of MIDE 00:00: [place] ANTIBIOT 00 Medical ICS) Branch Codeine Propensi Active Itching Univer s ty to 1-08 ity of adverse 00:00: [place] reaction 00 Medical s Branch CODEINE DRUG Active ITCHING Univers INGREDI 1-08 ity of 00:00: [place] 00 Medical Branch Social History Social Habit Start Date Stop Date Quantity Comments Source Exposure to Unable to assess Univers ity of SARS-CoV-2 [facility] (event) [place] Tobacco use and 2016-09-02 2016-09-02 Never used Universit y of exposure 00:00:00 00:00:00 [facility] Sex Ass[birth year] At [birth year] Universit y of 00:00:00 00:00:00 [facility] Smoking Status Start Date Stop Date Source Current every day smoker 2016-09-02 00:00:00 Uni versity of [facility] Medications Ordered Filled Start Stop Current Ordering Indication Dosage Frequency Signature Comments Components Source Medication Medication Date Date Medication? Clinician (SIG) Name Name clopidogreL 2021- Yes [id number] 75mg Take 1 Univers 75 mg 11-04 tablet by ity of tablet 00:00: 04:59 mouth [place] 00 :00 daily for Medical 91 days. Branch clopidogreL 2021- Yes [id number] 75mg Take 1 Univers 75 mg 11-04 tablet by ity of tablet 00:00: 04:59 mouth [place] 00 :00 daily for Medical 91 days. Branch amLODIPine 2021- Yes [id number] 10mg Take 1 Univers 10 mg 11-04- tablet by ity of tablet 00:00: 04:59 mouth [place] 00 :00 daily for Medical 60 days. Branch magnesium 2021- Yes [id number] 400mg Take 400 Univers oxide 420 11-04- mg by ity of mg Tab 00:00: 04:59 mouth [place] 00 :00 daily for Medical 60 days. Branch foLIC acid 2021- Yes [id number] 1mg Take 1 Univers 1 mg tablet 11-04- tablet by it y of 00:00: 04:59 mouth [place] 00 :00 daily for Medical 60 days. Branch amLODIPine 2021- Yes [id number] 10mg Take 1 Univers 10 mg 11-04- tablet by ity of tablet 00:00: 04:59 mouth [place] 00 :00 daily for Medical 60 days. Branch magnesium 2021- Yes [id number] 400mg Take 400 Univers oxide 420 11-04- mg by ity of mg Tab 00:00: 04:59 mouth [place] 00 :00 daily for Medical 60 days. Branch foLIC acid 2021- Yes [id number] 1mg Take 1 Univers 1 mg tablet 11-04- tablet by it y of 00:00: 04:59 mouth [place] 00 :00 daily for Medical 60 days. Branch penicillin Yes 500mg Take 500 [place] v potassium 3-08 mg by ity of 500 mg 20:57: mouth 4 [place] tablet 59 (four) Medical times Branch daily. penicillin Yes 500mg Take 500 [place] v potassium 3-08 mg by ity of 500 mg 20:57: mouth 4 [place] tablet 59 (four) Medical times Branch daily. metoprolol 2021- No 25mg Take 25 mg Univers succinate 11-03-08 by mouth ity o f XL 25 mg 24 16:29: 00:00 daily. [place] hr tablet 26 :00 Medical Branch gabapentin 2021- No 300mg Take 300 U nivers 300 mg 11-03-08 mg by ity of capsule 16:29: 00:00 mouth 2 [place] 16 :00 (two) Medical times Branch daily. amLODIPine Yes 10mg 10 mg, Unive rs (NORVASC) 3-08 Oral, ity of tablet 10 15:00: DAILY, [place] mg 00 First dose Medical (after Branch last modificati on) on Tue11/03/21 at 0900, Until Discontinu ed, Routine aspirin 81 2022- Yes [id number] 81mg Take 1 Univers mg chewable 11-03-04 tablet by it y of tablet 00:00: 05:59 mouth [place] 00 :00 daily for Medical 360 days. Branch aspirin 81 2022- Yes [id number] 81mg Take 1 Univers mg chewable 11-03 tablet by it y of tablet 00:00: 05:59 mouth [place] 00 :00 daily for Medical 360 days. Branch atorvastati 2021- Yes [id number] 80mg Take 1 Univers n 80 mg 11-03 tablet by ity of tablet 00:00: 04:59 mouth at [place] 00 :00 bedtime Medical for 90 Branch days. carvediloL 2021- Yes [id number] 6.25mg Take 1 Univers 6.25 mg 11-03 tablet by ity of tablet 00:00: 04:59 mouth 2 [place] 00 :00 (two) Medical times Branch daily with meals for 90 days. atorvastati 2021- Yes [id number] 80mg Take 1 Univers n 80 mg 11-03 tablet by ity of tablet 00:00: 04:59 mouth at [place] 00 :00 bedtime Medical for 90 Branch days. carvediloL 2021- Yes [id number] 6.25mg Take 1 Univers 6.25 mg 11-03 tablet by ity of tablet 00:00: 04:59 mouth 2 [place] 00 :00 (two) Medical times [place] daily with meals for 90 days. labetaloL 2021- No 10mg 10 mg, Unive rs (NORMODYNE) 3- 03-05 Slow IV ity of injection 03:15: 02:10 Push, [place] 10 mg 00 :00 ONCE, 1 Medical dose, On Branch Tue10/30/21 at 2115, LILLIAN amLODIPine 2021- No 5mg 5 mg, Unive rs (NORVASC) 3- 03-08 Oral, ity of tablet 5 mg 02:15: 13:18 DAILY, [place] as 00 :17 First dose Medical on Tue Branch 10/30/21 at 2015, Until Discontinu ed, Routine labetaloL Yes 10mg 10 mg, Univer s (NORMODYNE) 3-05 Slow IV ity o f injection 02:08: Push, [place] 10 mg 34 Q20MIN Medical PRN, Branch Starting on Tue10/30/21 at 2008, Until Discontinu ed, Routine, Only if SBP > 180 or Diastolic > 110 mm of Hg carvediloL Yes 6.25mg 6.25 mg, U nivers (COREG) 3-04 Oral, BID ity of tablet 6.25 23:00: MEALS, [place] mg 00 First dose Medical (after Branch last modificati on) on Tue10/30/21 at 1700, Until Discontinu ed, Routine NaCl 0.9% Yes 1000mL at 25 Unive rs (NS) IV 3-04 mL/hr, IV ity of infusion 04:45: Infusion, [place] 1,000 mL 00 CONTINUOUS Medic al , Starting Branch on [place] 10/29/21 at 2245, Until Discontinu ed, Routine carvediloL 2021- No 3.125mg 3.125 mg, Univers (COREG) 10-30 03-04 Oral, BID ity of tablet 03:45: 16:52 MEALS, [place] 3.125 mg 00 :52 First dose Medic al on [facility] Branch 10/29/21 at 2145, Until Discontinu ed, Routine atorvastati Yes 80mg 80 mg, Univ ers n (LIPITOR) 3-04 Oral, QHS, it y of tablet 80 03:00: First dose [place] mg 00 on [facility] Medical 10/29/21 at Branch 2100, Until Discontinu ed, Routine thiamine 2021- No 500mg IV Univers (VITAMIN 10-3006 Piggyback, ity of B1) 500 mg 02:00: 20:00 TID, 9 [place] in NaCl 00 :00 doses, Medical 0.9% (NS) First dose Bran ch piggyback (after last modificati on) on [facility] 10/29/21 at 2000, Last dose on [place] 11/01/21 at 1400, 100 mL iopamidol 2021- No [id number] 80mL 80 mL, U nivers (ISOVUE 10-29 Intravenou ity o f 370-500 mL) 21:18: 21:19 s, ONCE, 1 [place] injection 00 :00 dose, On Medica l 80 mL [facility] 10/29/21 Branch at 1530, Routine sulfur 2021- No [id number] 5mL 5 mL, Unive rs hexafluorid 10-29 Intravenou i ty of e microsphr 18:15: 16:05 s, ONCE, 1 [place] (LUMASON) 00 :00 dose, On Medica l injection 5 Tue10/29/21 Br anch mL at 1215, Routine
film crew member approving Restricted medication : MINNA VARGAS clopidogreL Yes 75mg 75 mg, [facility] ers (PLAVIX) 75 03 Oral, ity of mg tablet 15:00: DAILY, [place] 75 mg 00 First dose Medical on [facility] Branch 10/29/21 at 0900, Until Discontinu ed, Routine aspirin Yes 81mg 81 mg, Univers chewable 10-29 Oral, ity of tablet 81 15:00: DAILY, [place] mg 00 First dose Medical on [facility] Branch 10/29/21 at 0900, Until Discontinu ed, Routine foLIC acid Yes 1mg 1 mg, [facility] s (FOLATE) 10-29 Oral, ity of tablet 1 mg 15:00: DAILY, [place] 00 First dose Medical on [facility] Branch 10/29/21 at 0900, Until Discontinu ed, Routine albuterol-i Yes 2{puff} 2 Puff, [facility] pratropium 03 Inhalation ity of (COMBIVENT 02:00: , BID, [place] RESPIMAT) 00 First dose Medi nancy 20-100 (after Branch mcg/actuati last on inhaler modificati 2 Puff on) on Tue10/28/21 at 2000, Until Discontinu ed, Routine
Is this order for a patient with suspected or confirmed COVID-19 infection? No
D oes this order have Pulmonary/ Critical Care approval? No gadobenate 0 2021- No [id number] .2mL/kg 17.7 mL Univers dimeglumine 10-29- (0.2 mL/kg i ty of (MULTIHANCE 01:30: 01:30 ?88.5 kg), [place] -20 mL) 00 :00 Intravenou Medica l injection s, ONCE, 1 Bran ch 17.7 mL dose, On Tue10/28/21 at 1930, Routine nicotine Yes 1{patch 1 Patch, Un anton (NICODERM) 10-28 } Topical, ity o f 21 mg/24 hr 23:00: Administer [place] patch 1 00 over 24 Medical Patch Hours, Branch Q24H, First dose on Tue10/28/21 at 1700, Until Discontinu ed, Routine enoxaparin 2021-0 Yes 40mg 40 mg, Unive rs (LOVENOX) 10-28 Subcutaneo ity of injection 23:00: us, DAILY, [place] 40 mg 00 First dose Medical on Tue Branch 10/28/21 at 1700, Until Discontinu ed, Routine thiamine 2021-2021- No 100mg 100 mg, Univ ers (VITAMIN 10-28-03 Oral, ity of B1) tablet 22:00: 21:44 DAILY, [place] 100 mg 00 :18 First dose Medical on Tue Branch 10/28/21 at 1600, Until Discontinu ed, Routine magnesium Yes 400mg 400 mg, Univ ers oxide 10-28 Oral, ity of (MAG-OX 15:00: DAILY, [place] 400) tablet 00 First dose Me dical 400 mg on Tue Branch 10/28/21 at 0900, Until Discontinu ed, Routine pantoprazol Yes 40mg 40 mg, Univ ers e 10-28 Oral, ity of (PROTONIX) 15:00: DAILY, [place] EC tablet 00 First dose Medi nancy 40 mg on Tue Branch 10/28/21 at 0900, Until Discontinu ed, Routine lisinopriL 2021- No 20mg 20 mg, Univ ers (PRINIVIL,Z 10-28- Oral, ity of ESTRIL) 15:00: 16:52 DAILY, [place] tablet 20 00 :51 First dose Medi nancy mg on Tue Branch 10/28/21 at 0900, Until Discontinu ed, Routine metoprolol 2021- No 25mg 25 mg, Univ ers succinate 10-28- Oral, ity of XL (TOPROL 15:00: 03:43 DAILY, [place] XL) tablet 00 :08 First dose Med ical 25 mg on Tue Branch 10/28/21 at 0900, Until Discontinu ed, Routine aloe vera 2021-0 Yes Topical, Univ ers (DERMAIDE 3-02 TID, First ity of ALOE) cream 14:00: dose on [place] 00 Tue10/28/21 Medical at 0800, Branch Until Discontinu ed, Routine gabapentin 2021- No 300mg 300 mg, Un anton (NEURONTIN) 10-28 03-04 Oral, BID, i ty of capsule 300 14:00: 14:39 First dose [place] mg 00 :51 on Tue10/28/21 at Branch 0800, Until Discontinu ed, Routine NaCl 0.9% 2021- No 1000mL at 42 Univ ers (NS) IV 10-28 03-03 mL/hr, IV ity of infusion 09:00: 20:39 Infusion, [place] 1,000 mL 00 :18 CONTINUOUS Medic al , Starting Branch on Tue10/28/21 at 0300, Until Tue10/29/21 at 1439, Routine acetaminoph Yes 650mg 650 mg, Un an[place] en 10-28 Oral, ity of (TYLENOL) 08:54: Q6HPRN, [place] tablet 650 32 Starting Medic al mg on Tue10/28/21 at 0254, Until Discontinu ed, Routine, Pain (scale 4-6) docusate Yes 100mg 100 mg, Unive rs (COLACE) 10-28 Oral, ity of capsule 100 08:54: QDAILYPRN, [place] mg 32 Starting Medical on Tue10/28/21 at 0254, Until Discontinu ed, Routine, Constipati on methocarbam Yes 500mg 500 mg, [place] an[place] oL 10-28 Oral, ity of (ROBAXIN) 08:54: TIDPRN, [place] tablet 500 04 Starting Medic al mg on Tue10/28/21 at 0254, Until Discontinu ed, Routine, msucle cramps metoprolol 2021- No 5mg 5 mg, Slow Univers (LOPRESSOR) 10-28 IV Push, ity of injection 5 06:00: 05:03 ONCE, 1 [place] mg 00 :00 dose, On Medical Tue10/28/21 Branch at 0000, LILLIAN lisinopriL 2021- No 20mg 20 mg, Univ ers (PRINIVIL,Z 10-22 Oral, ity of ESTRIL) 03:45: 02:42 ONCE, 1 [place] tablet 20 00 :00 dose, On Medica l mg Wed Branch 10/21/21 at 2145, Routine lisinopril 2021- No 20mg Take 20 mg Univers 20 mg 10-21 by mouth 2 ity of tablet 20:40: 00:00 (two) [place] 39 :00 times Medical daily. Branch lisinopriL Yes [id number] 20mg Take 1 U nivers 20 mg - tablet by ity of tablet 00:00: mouth [place] 00 daily. Medical Branch lisinopriL 2021- No [id number] 20mg Take 1 Univers 20 mg 10-21-08 tablet by ity of tablet 00:00: 00:00 mouth [place] 00 :00 daily. Medical Branch methocarbam 2019-0 Yes [id number] 500mg Take 1 Univers oL 500 mg 05-21 [id number] tablet by ity of tablet 00:00: mouth 3 00 (three) Medical times Branch daily as needed (msucle cramps). methocarbam 2019- Yes [id number] 500mg Take 1 Univers oL 500 mg 05-21 [id number] tablet by ity of tablet 00:00: mouth 3 00 (three) Medical times Branch daily as needed (msucle cramps). methocarbam 2020-0 Yes [id number] 500mg Take 1 Univers oL 500 mg 05-21 [id number] tablet by ity of tablet 00:00: mouth 3 00 (three) Medical times Branch daily as needed (msucle cramps). methocarbam 2020-0 Yes [id number] 500mg Take 1 Univers oL 500 mg 05-21 [id number] tablet by ity of tablet 00:00: mouth 3 00 (three) Medical times Branch daily as needed (msucle cramps). albuterol-i Yes 2{puff} Inhale 2 Univers pratropium 1-07 Puffs 4 ity of (COMBIVENT 00:00: (four) [place] RESPIMAT) 00 times Medical 20-100 daily. Branch mcg/actuati on inhaler albuterol-i Yes 2{puff} Inhale 2 Univers pratropium 1-07 Puffs 4 ity of (COMBIVENT 00:00: (four) [place] RESPIMAT) 00 times Medical 20-100 daily. Branch mcg/actuati on inhaler albuterol-i Yes 2{puff} Inhale 2 Univers pratropium 1-07 Puffs 4 ity of (COMBIVENT 00:00: (four) [place] RESPIMAT) 00 times Medical 20-100 daily. Branch mcg/actuati on inhaler albuterol-i Yes 2{puff} Inhale 2 Univers pratropium 1-07 Puffs 4 ity of (COMBIVENT 00:00: (four) [place] RESPIMAT) 00 times Medical 20-100 daily. Branch mcg/actuati on inhaler lisinopril Yes 20mg Take 20 mg U nivers 20 mg 1-09 by mouth 2 ity of tablet 19:10: (two) [place] 50 times Medical daily. Branch metoprolol Yes 25mg Take 25 mg U nivers succinate 1-09 by mouth ity of XL 25 mg 24 19:10: daily. [place] hr tablet 50 Medical Branch penicillin 0 Yes 500mg Take 500 [place] v potassium 1-09 mg by ity of 500 mg 19:10: mouth 4 [place] tablet 50 (four) Medical times [place] daily. gabapentin 2017 Yes 300mg Take 300 [place] 300 mg 1-09 mg by ity of capsule 19:10: mouth 2 [place] 50 (two) Medical times [place] daily. metoprolol 2017 Yes 25mg Take 25 mg U nivers succinate 1-09 by mouth ity of XL 25 mg 24 13:10: daily. [place] hr tablet 50 Medical Branch penicillin 2016-0 Yes 500mg Take 500 [place] v potassium 1-09 mg by ity of 500 mg 13:10: mouth 4 [place] tablet 50 (four) Medical times [place] daily. gabapentin 2017- Yes 300mg Take 300 [place] 300 mg 1-09 mg by ity of capsule 13:10: mouth 2 [place] 50 (two) Medical times [place] daily. Immunizations Ordered Filled Immunization Date Status Comments [facility] e Immunization Name Name Pneumococcal 2019-07-04 Completed [place] o f Polysaccharide, 00:00:00 [facility] ica PPSV23 (PNEUMOVAX) Branch Pneumococcal 2019-07-04 Completed University o f Polysaccharide, 00:00:00 [facility] ical PPSV23 (PNEUMOVAX) Branch Vital Signs Vital Name Observation Time Observation Value Comments Source Heart rate 2021-11-04 00:59:00 87 /min Universi ty of [place] [facility] [place] Respiratory rate 2021-11-04 00:59:00 18 /min Univ ersity of [facility] Oxygen saturation in 2021-11-04 00:59:00 97 /min University of Arterial blood by [facility] Pulse oximetry Branch Systolic blood 2021-11-03 22:18:00 161 mm[Hg] Univer sity of pressure [place] Medical Branch Diastolic blood 2021-11-03 22:18:00 79 mm[Hg] Unive rsity of [facility] Medical [place] Body temperature 2021-11-03 22:18:00 36.72 Dariana [facility] ersity of [place] Medical [place] Body height 2021-10-29 18:10:00 170.2 cm Universi ty of [place] [facility] [place] Body weight 2021-10-29 18:10:00 88.451 kg Universi ty of [place] [facility] BMI 2021-10-29 18:10:00 30.54 kg/m2 Universi ty of [place] [facility] Systolic blood 2021-10-22 02:35:00 206 mm[Hg] Univer sity of pressure [place] [facility] Diastolic blood 2021-10-22 02:35:00 113 mm[Hg] Unive rsity of [facility] Medical [place] Heart rate 2021-10-22 02:35:00 72 /min Universi ty of [place] [facility] Respiratory rate 2021-10-22 02:35:00 19 /min Univ ersity of [place] [facility] Oxygen saturation in 2021-10-22 02:35:00 98 /min University of Arterial blood by [facility] Pulse oximetry Branch Body temperature 2021-10-21 22:51:02 36.28 Dariana Univ ersity of [place] [facility] Body weight 2021-10-21 22:41:00 89.359 kg Universi ty of [place] [facility] BMI 2021-10-21 22:41:00 30.85 kg/m2 Universi ty of [place] [facility] Systolic blood 2020-05-21 09:56:54 175 mm[Hg] Univer sity of pressure [place] [facility] Diastolic blood 2020-05-21 09:56:54 100 mm[Hg] [facility] Heart rate 2020-05-21 09:56:54 72 /min [facility] Respiratory rate 2020-05-21 09:56:54 16 /min [facility] Oxygen saturation in 2020-05-21 09:56:54 96 /min [facility] Arterial blood by [facility] Pulse oximetry Branch Body temperature 2020-05-21 07:49:00 37.17 Dariana [facility] Body height 2020-05-21 07:49:00 170.2 cm [facility] Body weight 2020-05-21 07:49:00 89.359 kg [facility] BMI 2020-05-21 07:49:00 30.85 kg/m2 [facility] Procedures Procedure Date / Time Performing Clinician Source Performed DNR 2021-11-10 05:01:00 Doctor Unassigned, [facility] COVID-19 (ID NOW RAPID 2021-11-03 21:35:00 Marcus [facility] TESTING) Medical Branch LAB ONLY COVID 2021-11-03 21:35:00 Marcus [facility] [place] INTERPRETATION [facility] BASIC METABOLIC PANEL 2021-11-03 09:52:00 Addis Stevenson [facility] (NA, K, CL, CO2, GLUCOSE, Medica l Branch BUN, CREATININE, CA) BASIC METABOLIC PANEL 2021-11-02 10:26:00 Daisha Red [facility] (NA, K, CL, CO2, GLUCOSE, Danielle Medica l Branch BUN, CREATININE, CA) BASIC METABOLIC PANEL 2021-11-01 12:19:00 Daisha Red [facility] (NA, K, CL, CO2, GLUCOSE, Danielle Medica l Branch BUN, CREATININE, CA) MAGNESIUM 2021-10-31 08:59:00 Amarilis Mcgarry [facility] BASIC METABOLIC PANEL 2021-10-31 08:59:00 Marcus [facility] (NA, K, CL, CO2, GLUCOSE, Medica l Branch BUN, CREATININE, CA) HB ECG ROUTINE & RHYTHM 2021-10-30 23:12:18 Daisha Red [facility] STRIP [place] Medical Branch CAROTID DUPLEX BILATERAL 2021-10-30 16:19:00 Marcus [facility] - BY VASCULAR LAB Medical Branch MAGNESIUM 2021-10-30 09:24:00 Santos [facility] BASIC METABOLIC PANEL 2021-10-30 09:24:00 Nila Graham [facility] (NA, K, CL, CO2, GLUCOSE, Medica l Branch BUN, CREATININE, CA) CBC WITH DIFF 2021-10-30 09:24:00 Santos [facility] MR THORACIC SPINE WO 2021-10-30 02:28:32 Marcus [facility] CONTRAST [facility] Branch MR CERVICAL SPINE WO 2021-10-30 02:22:05 Marcus [facility] CONTRAST [facility] CT ANGIOGRAM HEAD 2021-10-29 21:28:[address] [facility] [address] ANGIOGRAM NECK 2021-10-29 21:28:23 Santos [facility] DUPLEX VENOUS LEGS 2021-10-29 18:20:14 [facility] - BY VASCULAR Medical Branch LAB TRANSTHORACIC ECHO (TTE) 2021-10-29 16:10:00 Nila Graham [facility] COMPLETE W/ CONTRAST Medical [facility] GLYCOSYLATED HEMOGLOBIN 2021-10-29 09:55:00 [facility] (A1C) Medical Branch ALDOLASE 2021-10-29 09:54:00 Santos [facility] MAGNESIUM 2021-10-29 09:54:00 Santos [facility] THYROID STIMULATING 2021-10-29 09:54:00 [facility] HORMONE [facility] Branch COPPER, SERUM 2021-10-29 09:34:00 Santos [facility] ZINC, SERUM 2021-10-29 09:34:00 Santos [facility] EXTRA TUBE LT. GREEN 2021-10-29 09:34:00 Evy Whitehead [facility] MR LUMBAR SPINE W WO 2021-10-29 01:19:00 Santos [facility] CONTRAST [facility] Branch MR BRAIN WO CONTRAST 2021-10-29 01:18:32 Santos [facility] PHOSPHORUS 2021-10-28 12:28:00 Santos [facility] CREATINE KINASE 2021-10-28 12:28:00 Santos [facility] URIC ACID 2021-10-28 12:28:00 Santos [facility] VITAMIN B12, LEVEL 2021-10-28 12:28:00 Santos [facility] FOLATE 2021-10-28 12:28:00 Santos [facility] BASIC METABOLIC PANEL 2021-10-28 12:28:00 Santos [facility] (NA, K, CL, CO2, GLUCOSE, Medica l Branch BUN, CREATININE, CA) LIPID PANEL ([id number])(TOTAL 2021-10-28 12:28:00 Nila Graham [facility] CHOLESTEROL, [facility] Branch TRIGLYCERIDES, HDL) CBC WITH DIFF 2021-10-28 11:51:00 Santos [facility] ANTI-NUCLEAR ANTIBODY 2021-10-28 11:51:00 Santos [facility] SCREEN [facility] ANTI-SSB(LA) 2021-10-28 11:51:00 Santos [facility] ANTI-NUCLEAR 2021-10-28 11:51:00 Santos [facility] ANTIBODY-PATHOLOGIST Medical [facility] INTERPRETATION CT ANGIOGRAM HEAD 2021-10-28 11:25:44 Santos [facility] XR FOOT <3 VW RIGHT 2021-10-28 02:10:00 Suresh Burgess [facility] URINALYSIS 2021-10-28 01:25:00 Suresh Burgess [facility] CREATINE KINASE 2021-10-28 00:46:00 Suresh Burgess [facility] MAGNESIUM 2021-10-28 00:46:00 Burgess, Suresh [facility] COMP. METABOLIC PANEL 2021-10-28 00:46:00 Suresh Burgess [facility] ([id number]) Medical Branch XR CHEST 1 VW 2021-10-28 00:45:00 Suresh Burgess [facility] CT CERVICAL SPINE WO 2021-10-28 00:38:17 Suresh Burgess [facility] CONTRAST Medical [place] CT HEAD WO CONTRAST 2021-10-28 00:38:17 Suresh Burgess [facility] CT LUMBAR SPINE WO 2021-10-28 00:38:17 Suresh Burgess [facility] CONTRAST [facility] CT THORACIC SPINE WO 2021-10-28 00:38:17 Suresh Burgess [facility] Branch C-REACTIVE PROTEIN 2021-10-28 00:02:00 Suresh Burgess [facility] SEDIMENTATION RATE 2021-10-28 00:02:00 Suresh Burgess [facility] CBC WITH DIFF 2021-10-28 00:02:00 Suresh Burgess [facility] PROTHROMBIN TIME / INR 2021-10-28 00:01:00 Suresh Burgess [facility] ACTIVATED PARTIAL 2021-10-28 00:01:00 Suresh Burgess [facility] THRMPLAS [facility] Branch COVID-19 (ID NOW RAPID 2021-10-28 00:01:00 Suresh Burgess [facility] TESTING) Medical Branch LAB ONLY COVID 2021-10-28 00:01:00 Suresh Burgess [facility] INTERPRETATION [facility] Branch NOTICE OF PRIVACY 2021-10-27 23:26:08 Doctor Oskar, [facility] PRACTICES [place] [facility] CONSENT/REFUSAL FOR 2021-10-27 23:25:48 Doctor Oskar [facility] DIAGNOSIS AND TREATMENT [place] [facility] ADMISSION 2021-10-27 06:01:00 Doctor Oskar [facility] XR CERVICAL SPINE 2 VW 2021-10-22 00:36:00 Caren Cazares [facility] XR LUMBAR SPINE 1 2021-10-22 00:36:00 Caren Cazares [facility] XR SPINE THORACIC 2 VW 2021-10-22 00:36:00 Caren Cazraes [facility] XR PELVIS <3 VW 2021-10-22 00:36:00 Caren Cazares [facility] CREATINE KINASE 2020-05-21 07:52:00 Suresh Burgess [facility] MAGNESIUM 2020-05-21 07:52:00 Aditya Suresh [facility] BASIC METABOLIC PANEL 2020-05-21 07:52:00 Suresh Burgess [facility] (NA, K, CL, CO2, GLUCOSE, Medica l Branch BUN, CREATININE, CA) D-DIMER 2020-05-21 07:52:00 Aditya Suresh [facility] NOTICE OF PRIVACY 2020-05-21 07:37:03 Doctor Oskar, [facility] PRACTICES [facility] CONSENT/REFUSAL FOR 2020-05-21 07:35:15 Doctor Oskar, [facility] DIAGNOSIS AND TREATMENT [facility] Encounters Start End Encounter Admission Attending Care Care Encounter Source Date/Time Date/Time Type Type Clinicians Facility Department ID 2021-06-26 Emergency [facility] [id number] [facility]10 2021-11-10 Orders Doctor CABRERA [id number] Univers 00:00:00 00:00:00 Only UnassignedGREG 350.1.13.10 ity of [facility] 4.2.7.2.686 [facility] [id number] [facility] 009 Branch 2021-10-27 2021-11-03 Inpatient [facility] [id number] Univers 17:27:00 20:00:00 [facility] 2021-10-27 2021-11-03 Hospital Suresh Burgess [id number] Univers 17:27:00 20:00:00 Encounter Anita [facility] 350.1.13.10 [facility] 4.2.7.2.686 [place] [id number] [place] [id number] [facility] 2021-10-21 2021-10-21 [facility] [id number] Univers 16:47:00 21:00:00 CAREN [facility] 2021-10-21 2021-10-21 Emergency Debora [facility] [id number] Univers 16:47:00 21:00:00 Caren COOLEY 350.1.13.10 i ty of [place] 4.2.7.2.686 [facility] [id number] [address] 2020-05-21 2020-05-21 [facility] [id number] Univers 02:45:00 05:07:00 Suresh Cooley 350.1.13.10 i ty of [place] 4.2.7.2.686 [facility] [id number] [address] Results Test Description Test Time Test Comments Results Result Comments Source ALDOLASE 2021-11-03 16:30:07 Test Item Value Reference Range Interpretation Comme nts ALDOLASE (test code = 1761-6) 8.7 U/L 1.2-7.6 H This specimen is Hemolyzed. This may cause the resul ts to be falsely increased.REFER ENCE INTERVAL: Aldolase Access complete set of age- and/or gender-s pecific reference intervals for t his test in the [facility] Test Directory ([employer]).P erformed By: [employer] [place] [address] [id number] aboratory Director: Chely Gaviria MD Lab Interpretation (test code Abnormal = 25953-7) [facility] (NA, K, CL, CO2, GLUCOSE, BUN, CREATININE, CA)2021-11-03 10:35:46 Test Item Value Reference Range Interpretation Comments NA (test code = 130 mmol/L 135-145 L 9884300944) K (test code = 3.9 mmol/L 3.5-5.0 5857062961) CL (test code = 100 mmol/L 98-108 4357177262) CO2 TOTAL (test code = 27 mmol/L 23-31 8978689706) AGAP (test code = 2-16 5496449560) BUN (test code = 28 mg/dL 7-23 H 7482624712) GLUCOSE (test code = 96 mg/dL 70-110 4976550051) CREATININE (test code = 1.36 mg/dL 0.50-1.04 H 3375673347) CALCIUM (test code = 8.9 mg/dL 8.6-10.6 3599629104) eGFR (test code = mL/min/1.73m2 4789600692) FILEMON (test code = FILEMON) Association of Glomerular Filtration Rate (GFR) and Staging of Kidney Disease* + --+ --+ ------+| GFR (mL/min/1.73 m2) ?| With Kidney Damage ?| ?Without Kidney Damage+ --------+ --------+ +| ?>90 ?| ?Stage one ?| ? Normal ?+ ---+ ---+ -------+| ?60-89 ?| ?Stage two ?| ? Decreased GFR ? + --+ --+ ------+| ?30-59 ?| ?Stage three ?| ? Stage three ? + --+ --+ ------+| ?15-29 ?| ?Stage four ? | ? Stage four ?+ ---+ ---+ -------+| ?<15 (or dialysis) ? ?| ?Stage five ? | ? Stage five ?+ ---+ ---+ -------+ *Each stage assumes the associated GFR level has been in effect for at least three months. ?Stages 1 to 5, with or without kidney disease, indicate chronic kidney disease. Notes: Determination of stages one and two (with eGFR >59mL/min/1.73 m2) requires estimation of kidney damage for at least three months as defined by structural or functional abnormalities of the kidney, manifested by either:Pathological abnormalities or Markers of kidney damage (including abnormalities in the composition of the blood or urine or abnormalities in imaging tests). Lab Interpretation Abnormal (test code = 40423-6) [facility] METABOLIC PANEL (NA, K, CL, CO2, GLUCOSE, BUN, CREATININE, CA)2021-11-02 11:21:54 Test Item Value Reference Range Interpretation Comments NA (test code = 132 mmol/L 135-145 L 3213669674) K (test code = 4.2 mmol/L 3.5-5.0 5585293471) CL (test code = 100 mmol/L 98-108 4303881246) CO2 TOTAL (test code = 26 mmol/L 23-31 0836370136) AGAP (test code = 2-16 0590240282) BUN (test code = 19 mg/dL 7-23 7173491480) GLUCOSE (test code = 114 mg/dL 70-110 H 1052329361) CREATININE (test code = 1.31 mg/dL 0.50-1.04 H 2001663136) CALCIUM (test code = 8.9 mg/dL 8.6-10.6 3732360019) eGFR (test code = mL/min/1.73m2 2154969625) FILEMON (test code = FILEMON) Association of Glomerular Filtration Rate (GFR) and Staging of Kidney Disease* + --+ --+ ------+| GFR (mL/min/1.73 m2) ?| With Kidney Damage ?| ?Without Kidney Damage+ --------+ --------+ +| ?>90 ?| ?Stage one ?| ? Normal ?+ ---+ ---+ -------+| ?60-89 ?| ?Stage two ?| ? Decreased GFR ? + --+ --+ ------+| ?30-59 ?| ?Stage three ?| ? Stage three ? + --+ --+ ------+| ?15-29 ?| ?Stage four ? | ? Stage four ?+ ---+ ---+ -------+| ?<15 (or dialysis) ? ?| ?Stage five ? | ? Stage five ?+ ---+ ---+ -------+ *Each stage assumes the associated GFR level has been in effect for at least three months. ?Stages 1 to 5, with or without kidney disease, indicate chronic kidney disease. Notes: Determination of stages one and two (with eGFR >59mL/min/1.73 m2) requires estimation of kidney damage for at least three months as defined by structural or functional abnormalities of the kidney, manifested by either:Pathological abnormalities or Markers of kidney damage (including abnormalities in the composition of the blood or urine or abnormalities in imaging tests). Lab Interpretation Abnormal (test code = 82788-5) [facility], [id number] 18:58:02 Test Item Value Reference Range Interpretation Comments ZINC (test code 70.2 ug/dL 60.0-120.0 INTERPRETIVE INFORMATION: = 5763-8) Zinc, Serum or Plasma Elevated result s may be due to skin or collection-rela randy contamination, including the use of a no ncertified metal-free collection/mayers sport tube. If contaminatio n concerns exist due to el evated levels of serum /plasma zinc, confirmat ion with a second specimen collected in a certified metal-free tube is recomme nded. Circulating zin c concentrations are dependent on al bumin status and are depress ed with malnutrition. ? Zinc may also be lowered with infection, infl ammation, stress, oral contraceptives, and . ?Zin c may be elevated with z inc supplementation or fasting. ?Elevated zinc concentrations may interfere with copper absorption. Th is test was developed and i ts performance carine racteristics determined by [facility]. I t has not been cleared or approved by the [place] Food and Drug Administration. This test was performed i n a CLIA certified labor atory and is intended for cl inical purposes.Perfor med By: [facility] [address] [id number] Director: Chely Gaviria MD [facility], [id number] 18:58:01 Test Item Value Reference Range Interpretation Comments COPPER (test code 128.1 ug/dL 80.0-155.0 INTERPRETI VE INFORMATION: = 5631-7) Copper, Serum o r Plasma Elevated result s may be due to skin or collection-rela randy contamination, including the use of a no ncertified metal-free collection/mayers sport tube. If contam ination concerns exist due to elevated levels of serum/plasma co pper, confirmation wi th a second specimen collected in a certified metal-free tube is recomme nded. Serum copper ma y be elevated with i nfection, inflammation, s tress, and copper suppleme ntation. In females, haylie vated copper may also be caused by oral contrac eptives and (concentrations may be elevated up to 3 times normal during t he third trimester). Thi s test was developed and i ts performance characteristics determined by [facility]. I t has not been cleared or approved by the [place] Food and Drug Administration. This test was performed i n a CLIA certified labor atory and is intended for clinical purposes.Perfor med By: [facility] [place] [address] [id number] aboratory Director: Chely Gaviria MD [facility]OL[facility] PAN[facility] (NA, K, CL, CO2, GLUCOSE, BUN, CREATININE, CA)2021-11-01 13:00:41 Test Item Value Reference Range Interpretation Comments NA (test code = 134 mmol/L 135-145 L 0842478881) K (test code = 4.6 mmol/L 3.5-5.0 Slight 5968221651) hemolysis CL (test code = 104 mmol/L 98-108 0873941573) CO2 TOTAL (test code 27 mmol/L 23-31 = 3792372737) AGAP (test code = 2-16 1311409579) BUN (test code = 20 mg/dL 7-23 Slight 4391510398) hemolysis GLUCOSE (test code = 108 mg/dL 70-110 0786083143) CREATININE (test code 1.35 mg/dL 0.50-1.04 H = 7146776186) CALCIUM (test code = 9.0 mg/dL 8.6-10.6 2069283813) eGFR (test code = mL/min/1.73m2 2677911663) FILEMON (test code = FILEMON) Association of Glomerular Filtration Rate (GFR) and Staging of Kidney Disease* + -----+ --------+ +| GFR (mL/min/1.73 m2) ?| With Kidney Damage ?| ?Without Kidney Damage+ +------- +---- --+| ?>90 ?| ?Stage one ?| ? Normal ?+ ------+ ---------+--------- +| ?60-89 ?| ?Stage two ?| ? Decreased GFR ? + -----+ --------+ +| ?30-59 ?| ?Stage three ?| ? Stage three ? + -----+ --------+ +| ?15-29 ?| ?Stage four ? | ? Stage four ?+ ------+ ---------+--------- +| ?<15 (or dialysis) ? ?| ?Stage five ? | ? Stage five ?+ ------+ ---------+--------- + *Each stage assumes the associated GFR level has been in effect for at least three months. ?Stages 1 to 5, with or without kidney disease, indicate chronic kidney disease. Notes: Determination of stages one and two (with eGFR >59mL/min/1.73 m2) requires estimation of kidney damage for at least three months as defined by structural or functional abnormalities of the kidney, manifested by either:Pathological abnormalities or Markers of kidney damage (including abnormalities in the composition of the blood or urine or abnormalities in imaging tests). Lab Interpretation Abnormal (test code = 68012-1) [facility] (NA, K, CL, CO2, GLUCOSE, BUN, CREATININE, CA)2021-10-31 09:36:58 Test Item Value Reference Range Interpretation Comments NA (test code = 139 mmol/L 135-145 2091567588) K (test code = 4.3 mmol/L 3.5-5.0 7003174973) CL (test code = 107 mmol/L 98-108 8055123490) CO2 TOTAL (test code = 28 mmol/L 23-31 8874272528) AGAP (test code = 2-16 1940697427) BUN (test code = 23 mg/dL 7-23 3667312451) GLUCOSE (test code = 104 mg/dL 70-110 7045462344) CREATININE (test code = 1.36 mg/dL 0.50-1.04 H 7426793629) CALCIUM (test code = 8.9 mg/dL 8.6-10.6 1427303657) eGFR (test code = mL/min/1.73m2 9185713334) FILEMON (test code = FILEMON) Association of Glomerular Filtration Rate (GFR) and Staging of Kidney Disease* + --+ --+ ------+| GFR (mL/min/1.73 m2) ?| With Kidney Damage ?| ?Without Kidney Damage+ --------+ --------+ +| ?>90 ?| ?Stage one ?| ? Normal ?+ ---+ ---+ -------+| ?60-89 ?| ?Stage two ?| ? Decreased GFR ? + --+ --+ ------+| ?30-59 ?| ?Stage three ?| ? Stage three ? + --+ --+ ------+| ?15-29 ?| ?Stage four ? | ? Stage four ?+ ---+ ---+ -------+| ?<15 (or dialysis) ? ?| ?Stage five ? | ? Stage five ?+ ---+ ---+ -------+ *Each stage assumes the associated GFR level has been in effect for at least three months. ?Stages 1 to 5, with or without kidney disease, indicate chronic kidney disease. Notes: Determination of stages one and two (with eGFR >59mL/min/1.73 m2) requires estimation of kidney damage for at least three months as defined by structural or functional abnormalities of the kidney, manifested by either:Pathological abnormalities or Markers of kidney damage (including abnormalities in the composition of the blood or urine or abnormalities in imaging tests). Lab Interpretation Abnormal (test code = 65240-7) [facility] 09:36:58 Test Item Value Reference Range Interpretation Comments MAGNESIUM (test code = 1410167716) 2.1 mg/dL 1.7-2.4 Lab Interpretation (test code = Normal 64134-8) [facility] (NA, K, CL, CO2, GLUCOSE, BUN, CREATININE, CA)2021-10-30 10:19:21 Test Item Value Reference Range Interpretation Comments NA (test code = 131 mmol/L 135-145 L 1424113292) K (test code = 3.9 mmol/L 3.5-5.0 3135144128) CL (test code = 101 mmol/L 98-108 5667811939) CO2 TOTAL (test code = 30 mmol/L 23-31 7657306241) AGAP (test code = <1 2-16 L 2699036223) BUN (test code = 29 mg/dL 7-23 H 9790114839) GLUCOSE (test code = 89 mg/dL 70-110 1386928324) CREATININE (test code = 1.65 mg/dL 0.50-1.04 H 4808721887) CALCIUM (test code = 8.9 mg/dL 8.6-10.6 1691170135) eGFR (test code = mL/min/1.73m2 2575731536) FILEMON (test code = FILEMON) Association of Glomerular Filtration Rate (GFR) and Staging of Kidney Disease* + --+ --+ ------+| GFR (mL/min/1.73 m2) ?| With Kidney Damage ?| ?Without Kidney Damage+ --------+ --------+ +| ?>90 ?| ?Stage one ?| ? Normal ?+ ---+ ---+ -------+| ?60-89 ?| ?Stage two ?| ? Decreased GFR ? + --+ --+ ------+| ?30-59 ?| ?Stage three ?| ? Stage three ? + --+ --+ ------+| ?15-29 ?| ?Stage four ? | ? Stage four ?+ ---+ ---+ -------+| ?<15 (or dialysis) ? ?| ?Stage five ? | ? Stage five ?+ ---+ ---+ -------+ *Each stage assumes the associated GFR level has been in effect for at least three months. ?Stages 1 to 5, with or without kidney disease, indicate chronic kidney disease. Notes: Determination of stages one and two (with eGFR >59mL/min/1.73 m2) requires estimation of kidney damage for at least three months as defined by structural or functional abnormalities of the kidney, manifested by either:Pathological abnormalities or Markers of kidney damage (including abnormalities in the composition of the blood or urine or abnormalities in imaging tests). Lab Interpretation Abnormal (test code = 66987-9) [facility] 10:00:18 Test Item Value Reference Range Interpretation Comments MAGNESIUM (test code = 0747381971) 2.2 mg/dL 1.7-2.4 Lab Interpretation (test code = Normal 20653-6) [facility] WITH [id number] 09:39:38 Test Item Value Reference Range Interpretation Comments WBC (test code = See_Comment [Automated 2828-2) message] The sy stem which generated this result transmitted reference range : 4.30 - 11.10 10*3/?L. The reference range was not used to interpret this result as normal/abnormal . RBC (test code = See_Comment [Automated 510-3) message] The sy stem which generated this result transmitted reference range : 3.93 - 5.25 10*6/?L. The reference range was not used to interpret this result as normal/abnormal . HGB (test code = 12.6 g/dL 11.6-15.0 718-7) HCT (test code = 38.7 % 35.7-45.2 4544-3) MCV (test code = 96.3 fL 80.6-95.5 H 787-2) MCH (test code = 31.3 pg 25.9-32.8 785-6) MCHC (test code = 32.6 g/dL 31.6-35.1 786-4) RDW-SD (test code = 44.9 fL 39.0-49.9 91349-1) RDW-CV (test code = 12.5 % 12.0-15.5 788-0) PLT (test code = See_Comment [Automated 777-3) message] The sy stem which generated this result transmitted reference range : 166 - 358 10*3/ ?L. The reference r chata was not used to interpret this result as normal/abnormal . MPV (test code = 10.3 fL 9.5-12.9 78738-8) NRBC/100 WBC (test See_Comment [Automat ed code = 0945080163) message] The system which generated this result transmitted reference range : 0.0 - 10.0 /100 WBCs. The refer ence range was not u sed to interpret th is result as normal/abnormal . NRBC x10^3 (test code <0.01 See_Comment [Auto mated = 4355862032) message] The s ystem which generated this result transmitted reference range : 10*3/?L. The reference range was not used to interpret this result as normal/abnormal . GRAN MAT (NEUT) % 74.2 % (test code = 770-8) IMM GRAN % (test code 0.20 % = 7970153342) LYMPH % (test code = 13.2 % 736-9) MONO % (test code = 8.2 % 5905-5) EOS % (test code = 3.7 % 713-8) BASO % (test code = 0.5 % 706-2) GRAN MAT x10^3(ANC) 4.62 10*3/uL 1.88-7.09 (test code = 8663892048) IMM GRAN x10^3 (test <0.03 0.00-0.06 code = 5352853779) LYMPH x10^3 (test code 0.82 10*3/uL 1.32-3.29 L = 731-0) MONO x10^3 (test code 0.51 10*3/uL 0.33-0.92 = 742-7) EOS x10^3 (test code = 0.23 10*3/uL 0.03-0.39 711-2) BASO x10^3 (test code 0.03 10*3/uL 0.01-0.07 = 704-7) Lab Interpretation Abnormal (test code = 95585-5) [facility]2021-10-29 23:44:58 Test Item Value Reference Range Interpretation Comments LVOT stroke volume (test 67.30 cm3 code = 4422859874) LVOT diameter (test code 1.98 cm = 1861242340) MV Peak E Silvano (test code 69.0 cm/s = 6888408626) MV Peak A Silvano (test code 96.0 cm/s = 1768396475) E/A ratio (test code = ratio 5513082430) E wave decelartion time 0.40 s (test code = 8765098224) MV E/e' septal (test code 5.8 cm/s = 4296911200) LA Volume Index (BP) 25.9 mL/m2 (test code = 2533507840) LA volume (BP) (test code 51.9 mL = 0827276125) LVOT peak silvano (test code 92.1 cm/s = 4993380895) LVOT mn grad (test code = mmHg 8317373726) Left Ventricular Cardiac 4.1 L/min Output (test code = 4369511) LA size (test code = 3.2 cm 6832914859) LAV(MOD-sp2) (test code = 45.90 mL 1268967265) LAV(MOD-sp4) (test code = 45.00 mL 4533742272) Tapse (test code = 1.65 cm 1860694125) AV LVOT peak gradient mmHg (test code = 4325970990) LVOT peak VTI (test code 21.8 cm = 0547321328) Aortic HR (test code = BPM 4282428208) LV V1 mean (test code = 63.90 cm/s 1608802078) MV Prop V (test code = 45.30 cm/s 6427309551) TR Peak Silvano (test code = 241.6 cm/s 3716590176) Triscuspid Valve mmHg Regurgitation Peak Gradient (test code = 1496782189) Ao root annulus (test 3.2 cm code = 3096685714) Ao root diam (test code = 3.20 cm 1463035937) Aortic root (test code = 3.2 cm 2316671190) LVPWD (test code = 0.85 cm 7148070624) PW (test code = 0.85 cm 0.6-1.0 8828071920) IVS (test code = 1.04 cm 3134020019) Interventricular Septum 1.04 cm Diastolic Thickness by 2D (test code = 1764308) LVIDD (test code = 4.80 cm 4133804566) EF(Teich) (test code = 49.00 % 7304805264) LVIDS (test code = 3.60 cm 2367582996) FS (test code = 25 % 5005555834) EF - 2D (test code = 49.00 % 38462983) Radiology Study observation (narrative) (test code = 14485-6) FILEMON (test code = FILEMON) ?Left?Ventricle: Left ventricle size is normal. Normal wall thickness. Normal wall motion. Normal systolic function with a visually estimated EF of 60 - 65%. There is impaired relaxation. ?Tricuspid?Valve: Right ventricular systolic pressure is 20-25 mmHg. ?RA pressure is 0-5 mmHg. ?Left?Atrium: No PFO present. Bubble study is negative. Venkatesh Sloan DO VitalsHeight Weight BSA (Calculated - sq m) BP Pulse 5' 7" (1.702 m) 195 lb (88.5 kg) 2.04 sq meters 167/85 64 [facility]I-NUCLEAR ANTIBODY-PATHOLOGIST [id number] 18:12:41ANA - Pathologist InterpretationANA HEp-2 IIFA Pathologist Interpretation Report Patient Name: Alicia Brooks ? ?Antinuclear Antibody (JELANI) Test (Anti-Cell Antibodies Test) Indirect Immunofluorescence Assay on HEp-2 Cells Screening titer: 1:80 (adults, > 18 years old), 1:40 (pediatrics, <= 18 years old)?Result: The antinuclear antibody (JELANI) screen is negative on interpretation. Remarks:This patient has a negative antinuclear antibody (JELANI) screening test. This suggests that the patient likely does not have a systemic autoimmune rheumatic disease that is strongly associated with a positive JELANI, such as systemic lupus erythematosus (JELANI positive in ~95-100%), systemic sclerosis (JELANI positive in ~60-80%), or the following disorders in which JELANI positivity is part of thediagnostic criteria: drug-induced lupus, autoimmune hepatitis, or mixed connective tissue disease. H owever, the JELANI may be negative in rare cases of systemic lupus erythematosus and systemic sclerosis. The JELANI may also be negative in ~20% of patients presenting with autoimmune hepatitis. Additionally, JELANI positivity is less sensitive in the diagnosis of Sjogren's syndrome (~40-70%) and dermatomyositi s/polymyositis (~30-80%). JELANI is not useful for the diagnosis of rheumatoid arthritis, multiple sclerosis, idiopathic thrombocytopenic purpura, thyroid disease, discoid lupus, or fibromyalgia. (https:// pubmed.ncbi.nlm.nih.gov/51469621/, https://pubmed.ncbi.nlm.nih.gov/97988608/) ? ? Therefore, a diagnosis cannot be based exclusively on JELANI detection and/or pattern and thus should be made via the integration of patient history, physical exam findings, and other diagnostic tests as clinically indicated. Ellie Hyatt MD ?10/29/2021 ?12:12 PM[facility] LABORATORY SERVICESUnCHRISTUS Sp[facility] – SouthThyroid Stimulating [id number] 14:10:03 Test Item Value Reference Range Interpretation Comments TSH (test code = See_Comment [Automated message] 5832686077) The system [employer] generated this result transmitted ref erence range: 0.45 - 4 .70 mIU/L. The refe rence range was not u sed to interpret this result as normal/abnor mal. Lab Interpretation (test Normal code = 94323-7) [facility] Hospital[facility]YCOSYLATED HEMOGLOBIN (A1C)2021-10-29 12:14:25 Test Item Value Reference Range Interpretation Comments HGB A1C (test code = 5.1 % 4.0-5.7 4548-4) FILEMON (test code = FILEMON) Reference RangesNormal: <5.7%Prediabetes: 5.7 - 6.4%Diabetes: > 6.5% Lab Interpretation (test Normal code = 51815-9) [facility] HospitalMagnesium [id number] 10:38:59 Test Item Value Reference Range Interpretation Comments MAGNESIUM (test code = 2.5 mg/dL 1.7-2.4 H Sligh t hemolysis 0775815959) Lab Interpretation (test Abnormal code = 81823-4) [facility] HospitalLIPID PANEL (19088)(TOTAL CHOLESTEROL, TRIGLYCERIDES, HDL)2021-10-29 09:34:32 Test Item Value Reference Range Interpretation Comments CHOL (test code = 229 mg/dL 120-200 H 3965109942) HDL (test code = 30 mg/dL >50 L 9352273274) HDLC RATIO (test code = See_Comment H [Au tomated message] 0161013073) The system [employer] generated this result transmit randy reference range : <=4.5. The refe rence range was not u sed to interpret th is result as normal/abnormal . TRIG (test code = 161 mg/dL 30-170 6035914293) LDL CHOL (test code = 167 mg/dL See_Comment H [Auto mated message] 94799-4) The system [employer] generated this result transmit randy reference range : <=160. The refe rence range was not u sed to interpret th is result as normal/abnormal . VLDL (test code = 32 mg/dL 5-60 4150885356) Lab Interpretation (test Abnormal code = 61675-6) [facility]22[facility] 07:05:50 Test Item Value Reference Range Interpretation Comments FOLATE SER (test code = 9.5 ng/mL 3.0-20.0 Slig ht hemolysis 1771845184) Lab Interpretation (test Normal code = 51884-9) [facility] HospitalVITAMIN B12, [id number] 04:59:31 Test Item Value Reference Range Interpretation Comments VIT B12 (test code = 387 pg/mL 240-930 [id number]) FILEMON (test code = FILEMON) Biotin has been reported to cause a positive bias, interpret results relative to patient's use of biotin. Lab Interpretation (test Normal code = 19975-9) [facility]:43:16 Test Item Value Reference Range Interpretation Comments ANTI-SSA(RO) (test code = Negative Negative [id number]) FILEMON (test code = FILEMON) Positive - Antibody detected.Negative - No antibody detected. Lab Interpretation (test Normal code = 66750-4) [facility]21[facility]28 23:43:16 Test Item Value Reference Range Interpretation Comments Anti-SSB(LA) (test code = Negative Negative 9698822476) FILEMON (test code = FILEMON) Positive - Antibody detected.Negative - No antibody detected. Lab Interpretation (test Normal code = 04282-5) [facility] [id number] 22:46:56 Test Item Value Reference Range Interpretation Comments JELANI (test code = Negative Negative 4071589674) FILEMON (test code = FILEMON) Negative - No Anti-Nuclear Antibodies detected by IFA.Positive - JELANI IFA screen performed with a 1:80 dilution in adults and a 1:40 dilution in pediatrics. Any JELANI "Positive" will have titer performed and reported separately.Negative - No Anti-Nuclear Antibodies detected by IFA.Positive - JELANI IFA screen performed with a 1:80 dilution in adults and a 1:40 dilution in pediatrics. Any JELANI "Positive" will have titer performed and reported separately. Lab Interpretation (test Normal code = 96657-4) [facility] [id number] 16:33:39 Test Item Value Reference Range Interpretation Comments CRP (test code = 2797291216) 5.6 mg/dL <0.8 H Lab Interpretation (test code = Abnormal 54440-5) [facility] HospitalPhosph[facility] [id number] 14:19:14 Test Item Value Reference Range Interpretation Comments PHOSPHORUS (test code = 4.6 mg/dL 2.5-5.0 Slig ht hemolysis 9849891988) Lab Interpretation (test Normal code = 05796-1) [facility])2021-10-28 14:18:54 Test Item Value Reference Range Interpretation Comments CK (test code = 6286300644) 42 U/L 33-194 Lab Interpretation (test code = Normal 49215-1) [facility] Metabolic Panel (Na, K, Cl, CO2, Glucose, BUN, Creatinine, Ca)2021-10-28 14:18:03 Test Item Value Reference Range Interpretation Comments NA (test code = 131 mmol/L 135-145 L 6914639140) K (test code = 4.3 mmol/L 3.5-5.0 Slight 7643753324) hemolysis CL (test code = 99 mmol/L 98-108 2765580356) CO2 TOTAL (test code 26 mmol/L 23-31 = 9784559113) AGAP (test code = 2-16 5138546122) BUN (test code = 26 mg/dL 7-23 H Slight 7187880964) hemolysis GLUCOSE (test code = 84 mg/dL 70-110 9810375449) CREATININE (test code 1.49 mg/dL 0.50-1.04 H = 5246503719) CALCIUM (test code = 8.8 mg/dL 8.6-10.6 2131722224) eGFR (test code = mL/min/1.73m2 0277815619) FILEMON (test code = FILEMON) Association of Glomerular Filtration Rate (GFR) and Staging of Kidney Disease* + -----+ --------+ +| GFR (mL/min/1.73 m2) ?| With Kidney Damage ?| ?Without Kidney Damage+ +------- +---- --+| ?>90 ?| ?Stage one ?| ? Normal ?+ ------+ ---------+--------- +| ?60-89 ?| ?Stage two ?| ? Decreased GFR ? + -----+ --------+ +| ?30-59 ?| ?Stage three ?| ? Stage three ? + -----+ --------+ +| ?15-29 ?| ?Stage four ? | ? Stage four ?+ ------+ ---------+--------- +| ?<15 (or dialysis) ? ?| ?Stage five ? | ? Stage five ?+ ------+ ---------+--------- + *Each stage assumes the associated GFR level has been in effect for at least three months. ?Stages 1 to 5, with or without kidney disease, indicate chronic kidney disease. Notes: Determination of stages one and two (with eGFR >59mL/min/1.73 m2) requires estimation of kidney damage for at least three months as defined by structural or functional abnormalities of the kidney, manifested by either:Pathological abnormalities or Markers of kidney damage (including abnormalities in the composition of the blood or urine or abnormalities in imaging tests). Lab Interpretation Abnormal (test code = 40293-4) [facility] HospitalURIC [id number] 13:06:27 Test Item Value Reference Range Interpretation Comments URIC ACID (test code = 3044039444) 6.0 mg/dL 2.9-6.0 Lab Interpretation (test code = Normal 06066-3) [facility] HospitalCB with [id number] 12:11:21 Test Item Value Reference Range Interpretation Comments WBC (test code = See_Comment [Automated 8690-2) message] The sy stem which generated this result transmitted reference range : 4.30 - 11.10 10*3/?L. The reference range was not used to interpret this result as normal/abnormal . RBC (test code = See_Comment [Automated 789-8) message] The sy stem which generated this result transmitted reference range : 3.93 - 5.25 10*6/?L. The reference range was not used to interpret this result as normal/abnormal . HGB (test code = 13.3 g/dL 11.6-15.0 718-7) HCT (test code = 40.4 % 35.7-45.2 4544-3) MCV (test code = 96.0 fL 80.6-95.5 H 787-2) MCH (test code = 31.6 pg 25.9-32.8 785-6) MCHC (test code = 32.9 g/dL 31.6-35.1 786-4) RDW-SD (test code = 44.5 fL 39.0-49.9 20662-8) RDW-CV (test code = 12.6 % 12.0-15.5 788-0) PLT (test code = See_Comment [Automated 777-3) message] The sy stem which generated this result transmitted reference range : 166 - 358 10*3/ ?L. The reference r chata was not used to interpret this result as normal/abnormal . MPV (test code = 10.1 fL 9.5-12.9 76018-1) NRBC/100 WBC (test See_Comment [Automat ed code = 4112500019) message] The system which generated this result transmitted reference range : 0.0 - 10.0 /100 WBCs. The refer ence range was not u sed to interpret th is result as normal/abnormal . NRBC x10^3 (test code <0.01 See_Comment [Auto mated = 0886056999) message] The s ystem which generated this result transmitted reference range : 10*3/?L. The reference range was not used to interpret this result as normal/abnormal . GRAN MAT (NEUT) % 79.9 % (test code = 770-8) IMM GRAN % (test code 0.40 % = 0629138618) LYMPH % (test code = 9.6 % 736-9) MONO % (test code = 7.8 % 5905-5) EOS % (test code = 1.9 % 713-8) BASO % (test code = 0.4 % 706-2) GRAN MAT x10^3(ANC) 6.22 10*3/uL 1.88-7.09 (test code = 0161075504) IMM GRAN x10^3 (test 0.03 10*3/uL 0.00-0.06 code = 3292975358) LYMPH x10^3 (test code 0.75 10*3/uL 1.32-3.29 L = 731-0) MONO x10^3 (test code 0.61 10*3/uL 0.33-0.92 = 742-7) EOS x10^3 (test code = 0.15 10*3/uL 0.03-0.39 711-2) BASO x10^3 (test code 0.03 10*3/uL 0.01-0.07 = 704-7) Lab Interpretation Abnormal (test code = 60632-0) [facility]. METABOLIC PANEL (81717)2021-10-28 01:46:40 Test Item Value Reference Range Interpretation Comments NA (test code = 133 mmol/L 135-145 L 3486605915) K (test code = 4.6 mmol/L 3.5-5.0 9605667835) CL (test code = 100 mmol/L 98-108 9275495876) CO2 TOTAL (test code = 25 mmol/L 23-31 7234370019) AGAP (test code = 2-16 8411892087) BUN (test code = 24 mg/dL 7-23 H 3951526980) GLUCOSE (test code = 94 mg/dL 70-110 2002133303) CREATININE (test code = 1.41 mg/dL 0.50-1.04 H 6595812962) TOTAL BILI (test code = 1.6 mg/dL 0.1-1.1 H 0813295827) CALCIUM (test code = 9.3 mg/dL 8.6-10.6 8793075094) T PROTEIN (test code = 6.7 g/dL 6.3-8.2 3387282153) ALBUMIN (test code = 4.1 g/dL 3.5-5.0 6550558367) ALK PHOS (test code = 95 U/L 34-122 1592585271) ALTv (test code = 50 U/L 5-35 H 1742-6) AST(SGOT) (test code = 34 U/L 13-40 7392866060) eGFR (test code = mL/min/1.73m2 1604011611) FILEMON (test code = FILEMON) Association of Glomerular Filtration Rate (GFR) and Staging of Kidney Disease* + --+ --+ ------+| GFR (mL/min/1.73 m2) ?| With Kidney Damage ?| ?Without Kidney Damage+ --------+ --------+ +| ?>90 ?| ?Stage one ?| ? Normal ?+ ---+ ---+ -------+| ?60-89 ?| ?Stage two ?| ? Decreased GFR ? + --+ --+ ------+| ?30-59 ?| ?Stage three ?| ? Stage three ? + --+ --+ ------+| ?15-29 ?| ?Stage four ? | ? Stage four ?+ ---+ ---+ -------+| ?<15 (or dialysis) ? ?| ?Stage five ? | ? Stage five ?+ ---+ ---+ -------+ *Each stage assumes the associated GFR level has been in effect for at least three months. ?Stages 1 to 5, with or without kidney disease, indicate chronic kidney disease. Notes: Determination of stages one and two (with eGFR >59mL/min/1.73 m2) requires estimation of kidney damage for at least three months as defined by structural or functional abnormalities of the kidney, manifested by either:Pathological abnormalities or Markers of kidney damage (including abnormalities in the composition of the blood or urine or abnormalities in imaging tests). Lab Interpretation Abnormal (test code = 60537-1) [facility]CRE[facility] [id number] 01:46:20 Test Item Value Reference Range Interpretation Comments CK (test code = 9894250165) 38 U/L 33-194 Lab Interpretation (test code = Normal 82169-4) [facility]MAGN[facility]IUM2022-03-02 01:20:29 Test Item Value Reference Range Interpretation Comments MAGNESIUM (test code = 5655633858) 1.7 mg/dL 1.7-2.4 Lab Interpretation (test code = Normal 51176-4) [facility] HospitalSEDIMENTATION [id number] 00:47:38 Test Item Value Reference Range Interpretation Comments ESR (test code = See_Comment [Automated message] 7404434647) The system [employer] h generated this result transmitted ref erence range: 0 - 20 m m/HR. The reference r chata was not used to interpret this result as normal/abnor mal. Lab Interpretation (test Normal code = 61912-4) [facility] HospitalACTIV[facility] PARTIAL THRMPLAS [id number] 00:22:32 Test Item Value Reference Range Interpretation Comments APTT Patient (test See_Comment [Automat ed code = 3173-2) message] The system which generated this result transmitted reference range : 23 - 38 Seconds . The reference range was not used to interpr et this result as normal/abnormal . FILEMON (test code = FILEMON) The [facility] patient population mean normal value for aPTT is 30 seconds. Lab Interpretation Normal (test code = 31519-1) [facility] HospitalPROTHROMBIN TIME / [id number] 00:20:32 Test Item Value Reference Range Interpretation Comments PROTIME PATIENT (test See_Comment [Auto mated message] code = 5964-2) The system ich generated this result transmitted ref erence range: 12.0 - 1 4.7 Seconds. The re ference range was not u sed to interpret this result as normal/abnor mal. INR (test code = 6301-6) Nor mal INR <1.1; Warfarin Therap eutic range 2.0 to 3. 0 or 2.5 to 3.5, dep ending upon the indica tions. Lab Interpretation (test Normal code = 90526-8) [facility] WITH [id number] 00:15:55 Test Item Value Reference Range Interpretation Comments WBC (test code = See_Comment H [Automated 0890-2) message] The system which generated this result transmit randy reference range : 4.30 - 11.10 10*3/?L. The reference range was not used to interpret this result as normal/abnormal . RBC (test code = See_Comment [Automated 789-8) message] The system which generated this result transmit randy reference range : 3.93 - 5.25 10*6/?L. The reference range was not used to interpret this result as normal/abnormal . HGB (test code = 15.5 g/dL 11.6-15.0 H 718-7) HCT (test code = 46.6 % 35.7-45.2 H 4544-3) MCV (test code = 95.5 fL 80.6-95.5 787-2) MCH (test code = 31.8 pg 25.9-32.8 785-6) MCHC (test code = 33.3 g/dL 31.6-35.1 786-4) RDW-SD (test code = 44.2 fL 39.0-49.9 05644-6) RDW-CV (test code = 12.5 % 12.0-15.5 788-0) PLT (test code = See_Comment H [Automated 777-3) message] The system which generated this result transmit randy reference range : 166 - 358 10*3/ ?L. The reference range was not u sed to interpret th is result as normal/abnormal . MPV (test code = 10.6 fL 9.5-12.9 29073-4) NRBC/100 WBC (test See_Comment [Automat ed code = 6710134124) message] The system which generated this result transmit randy reference range : 0.0 - 10.0 /100 WBCs. The reference range was not used to interpret this result as normal/abnormal . NRBC x10^3 (test code <0.01 See_Comment [Auto mated = 5093446582) message] The system which generated this result transmit randy reference range : 10*3/?L. The reference range was not used to interpret this result as normal/abnormal . GRAN MAT (NEUT) % 84.8 % (test code = 770-8) IMM GRAN % (test code 0.30 % = 8387196262) LYMPH % (test code = 7.8 % 736-9) MONO % (test code = 5.8 % 5905-5) EOS % (test code = 1.0 % 713-8) BASO % (test code = 0.3 % 706-2) GRAN MAT x10^3(ANC) 10.11 10*3/uL 1.88-7.09 H (test code = 3620693332) IMM GRAN x10^3 (test 0.04 10*3/uL 0.00-0.06 code = 9473998182) LYMPH x10^3 (test code 0.93 10*3/uL 1.32-3.29 L = 731-0) MONO x10^3 (test code 0.69 10*3/uL 0.33-0.92 = 742-7) EOS x10^3 (test code = 0.12 10*3/uL 0.03-0.39 711-2) BASO x10^3 (test code 0.03 10*3/uL 0.01-0.07 = 704-7) Lab Interpretation Abnormal (test code = 08900-7) [facility]MAG[facility]IUM2020-09-23 08:13:00 Test Item Value Reference Range Interpretation Comments MAGNESIUM (test code = 5203090493) 1.9 mg/dL 1.7-2.4 Lab Interpretation (test code = Normal 45890-4) [facility] Metabolic Panel (NA, K, CL, CO2, GLUCOSE, BUN, CREATININE, CA)2020-05-21 08:13:00 Test Item Value Reference Range Interpretation Comments NA (test code = 137 mmol/L 135-145 3884483544) K (test code = 4.0 mmol/L 3.5-5 6845867434) CL (test code = 104 mmol/L 98-108 0339173221) CO2 TOTAL (test code = 25 mmol/L 23-31 5627735472) AGAP (test code = 2-16 1208962484) BUN (test code = 17 mg/dL 7-23 6430759011) GLUCOSE (test code = 110 mg/dL 70-110 5514336016) CREATININE (test code 0.98 mg/dL 0.5-1.04 = 7780996859) CALCIUM (test code = 9.4 mg/dL 8.6-10.6 1056404915) eGFR Calculation mL/min/1.73m2 (Non-) (test code = 6691058092) eGFR Calculation mL/min/1.73m2 () (test code = 1689527495) FILEMON (test code = FILEMON) Association of Glomerular Filtration Rate (GFR) and Staging of Kidney Disease* + -+ + ---+| GFR (mL/min/1.73 m2) ?| With Kidney Damage ?| ?Without Kidney Damage+ -------+ ------+ ---------+| ?>90 ?| ?Stage one ?| ? Normal ?+ --+ -+ ----+| ?60-89 ?| ?Stage two ?| ? Decreased GFR ? + -+ + ---+| ?30-59 ?| ?Stage three ?| ? Stage three ? + -+ + ---+| ?15-29 ?| ?Stage four ? | ? Stage four ?+ --+ -+ ----+| ?<15 (or dialysis) ? ?| ?Stage five ? | ? Stage five ?+ --+ -+ ----+ *Each stage assumes the associated GFR level has been in effect for at least three months. ?Stages 1 to 5, with or without kidney disease, indicate chronic kidney disease. Notes: Determination of stages one and two (with eGFR >59mL/min/1.73 m2) requires estimation of kidney damage for at least three months as defined by structural or functional abnormalities of the kidney, manifested by either:Pathological abnormalities or Markers of kidney damage (including abnormalities in the composition of the blood or urine or abnormalities in imaging tests). [facility]-[id number] 08:13:00 Test Item Value Reference Interpretation Comments Range D-DIMER (test code = See_Comment H [Autom ated 5035907535) message] The system which generated this result transmitted reference range : <0.41 ?g/mL (FEU). The reference range was not used to interpret this result as normal/abnormal . FILEMON (test code = This test may be FILEMON) used in conjunction with a clinical pretest probability (PTP) assessment model to exclude venous thromboembolism (VTE) in patients suspected of deep venous thrombosis (DVT) and pulmonary embolism (PE) A D-Dimer value less than 0.50 ?g/ml (FEU) has a negative predicative value of 96 to 100% (95% CI)and 97 to 100% (95% CI) as an aid in the diagnosis of deep vein thrombosis (DVT) and pulmonary embolism when there is low or moderate pretest probability of PE or DVT. D-Dimer values are expressed in initial fibrinogen equivalent units (FEU)" The assay results should be used with other information, including the clinical context, in forming a diagnosis. Lab Interpretation Abnormal (test code = 34406-9) [facility] [id number] 08:12:00 Test Item Value Reference Range Interpretation Comments CK (test code = 5265051529) 80 U/L 33-194 Lab Interpretation (test code = Normal 90998-9) [facility]
--- NOTE | 2021-11-20 15:50 | RAD REPORT ---
EXAM DESCRIPTION: CT - Head Brain Wo Cont - 11/20/2021 3:32 pm CLINICAL HISTORY: WEAKNESS COMPARISON: HEAD BRAIN W O CONTRAST dated 10/22/2014 TECHNIQUE: Axial 5 mm thick images of the head were obtained without IV contrast. All CT scans are performed using dose optimization technique as appropriate and may include automated exposure control or mA/KV adjustment according to patient size. FINDINGS: No intracranial hemorrhage, mass, edema or shift of mid-line structures. No acute infarcti on at the cortical level. No cortical edema or sulcal effacement. Moderate for age atrophy changes ar e present with ventricles in proportion to volume loss. 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 Patient has very pronounced diminished attenuation throughout the cerebral white matte r. This advanced chronic ischemic pattern has progressed significantly since 2014. No abnormal extra- axial fluid collections. Mastoid air cells and visualized portions of the paranasal sinuses are clear. No acute bony findings. IMPRESSION: No intracranial hemorrhage present and no acute cortical based infarction seen. Patient has very advanced for age chronic ischemic change showing significant progression from 2015. Moderate atrophy changes are present progressive from 2015. Ventricles are in proportion. Chronic ischemic changes can mask nonhemorrhagic acute infarction. MR brain followup can be obtained if there is ongoing concern for acute ischemia.
--- NOTE | 2021-11-20 16:01 | RAD REPORT ---
EXAM DESCRIPTION: RAD - Chest Single View - 11/20/2021 3:42 pm CLINICAL HISTORY: weakness COMPARISON: Portable 07/05/2019 TECHNIQUE: AP portable chest image was obtained 11/20/2021 3:42 pm . FINDINGS: Chronic interstitial opacification is present more prominent in the left base. This patter n is not clearly different from 2019. No focal consolidation or mass. No acute failure or volume over load suspected. Heart size is prominent but stable. No vascular engorgement seen. No measurable pleur al effusion and no pneumothorax. No acute bony abnormality seen. No acute aortic findings suspected. IMPRESSION: Chronic interstitial changes are present similar to 2019. No acute chest finding.
[2021-11-20 16:23] LABS: Hematocrit 32.3 % (36.0-45.0); Lymphocytes % 12.4 % (15.3-44.8); MPV 7.7 fL (7.6-11.3); RBC Red Blood Cell Count 3.45 M/uL (3.86-4.86)
[2021-11-20 16:40] LABS: BUN Blood Urea Nitrogen 9 mg/dL (7-18); Bicarbonate 28 mmol/L (21-32); Glucose Level 106 mg/dL (74-106); Potassium 3.8 mmol/L (3.5-5.1); Sodium Level 138 mmol/L (136-145)
[2021-11-20 17:35] LABS: Urine Blood 2+ (Negative); Urine Glucose Negative (Negative); Urine Protein Negative (Negative); Urine Specific Gravity 1.015 (1.005-1.030); Urine pH 7.5 (5.0-7.0)
[2021-11-20 18:13] LABS: Troponin High Sensitivity < 3.0 pg/mL (<58.9)
--- NOTE | 2021-11-20 18:50 | EDPHYS ---
Physician Documentation [facility] Name: Sigrid nAgel Age: 71 yrs Sex: Female : 1950 Arrival Date: 11/20/2021 Time: 15:09 Bed 20 Private MD: ED Physician Anthony Trujillo HPI: 11/20 15:23 Patient states she was sent by [facility]. Patient states having 3 cva's in [facility] the past. Patient states having on going weakness to both upper and lower extremities. Denies any new weakness. Denies any increased difficulty with her speech. Denies chest pain, sob, abdominal pain. . Historical: - Allergies: 15:24 Codeine; jd3 15:24 Sulfa (Sulfonamide Antibiotics); jd3 - Home Meds: 15:24 acetaminophen 325 mg Oral tab 2 tabs every 6 hours [Active]; amlodipine 10 mg tab 1 tab jd3 once daily [Active]; aspirin 81 mg Oral chew 1 tab once daily [Active]; atorvastatin 80 mg oral tab 1 tab once daily [Active]; carvedilol 6.25 mg oral tab 1 tab 2 times per day [Active]; clopidogrel 75 mg oral tab 1 tab once daily [Active]; Combivent 18-103 mcg/actuation Inhl aero 2 puffs 4 times per day [Active]; folic acid 1 mg Oral tab 1 tab once daily [Active]; gabapentin 100 mg oral tab 2 cap twice a day [Active]; lactulose 20 gram/30 mL Oral soln 30 mL once daily [Active]; loratadine 10 mg oral tab 1 tab once daily [Active]; magnesium oxide 400 mg magnesium Oral tab 400 mg daily [Active]; methocarbamol 500 mg Oral tab 1 tabs every 8 hours [Active]; Senna-S 8.6-50 mg oral tab 2 tabs once daily [Active]; tramadol 50 mg Oral tab 1 tab every 6 hours [Active]; - PMHx: 15:24 COPD; esophageal varices; Hypertension; uterus CA; CVA; hyperlipidemia; jd3 - Immunization history:: Adult Immunizations unknown. - Social history:: Smoking status: unknown. ROS: 15:23 Constitutional: Negative for fever, chills, and weight loss, Cardiovascular: Negative [facility] for chest pain, palpitations, and edema, Respiratory: Negative for shortness of breath, cough, wheezing, and pleuritic chest pain, Abdomen/GI: Negative for abdominal pain, nausea, vomiting, diarrhea, and constipation, Neuro: Negative for headache, weakness, numbness, tingling, and seizure. 15:23 All other systems are negative. Exam: 15:23 Constitutional: This is a well developed, well nourished patient who is awake, alert, jmm and in no acute distress. Head/Face: atraumatic. Eyes: EOMI, no conjunctival erythema appreciated ENT: Moist Mucus Membranes Neck: Trachea midline, Supple Chest/axilla: Normal chest wall appearance and motion. Cardiovascular: Regular rate and rhythm. No edema appreciated 15:23 Back: Normal ROM Skin: General appearance color normal 15:23 Cardiovascular: Rate: normal, Rhythm: regular. 15:23 Respiratory: the patient does not display signs of respiratory distress, Respirations: normal, Breath sounds: are clear throughout. 15:23 Abdomen/GI: Inspection: abdomen appears normal, Bowel sounds: Palpation: abdomen is soft and non-tender, in all quadrants. 15:23 Musculoskeletal/extremity: no lower extremity edema appreciated bilaterally, pulses intact . 15:23 Skin: Appearance: Color: normal in color. 15:23 Neuro: Orientation: is normal, Mentation: is normal, Memory: is normal. 15:23 Psych: Behavior/mood is pleasant, cooperative. Vital Signs: 15:17 BP 137 / 70; Pulse 72 MON; Resp 22 S; Temp 99.1(TE); Pulse Ox 95% on R/A; Weight 66.68 ag7 kg (R); Height 5 ft. 7 in. (170.18 cm) (R); Pain 0/10; 18:51 BP 152 / 74 LA (man/reg); Pulse 81 MON; Resp 16 S; Pulse Ox 95% ; Pain 0/10; ag7 19:00 BP 136 / 85 RA Supine (auto/reg); Pulse 72 MON; Resp 22 S; Temp 98.9(O); Pulse Ox 94% tk1 on R/A; Pain 0/10; 20:00 BP 128 / 68 RA Supine (auto/reg); Pulse 72 MON; Resp 22; Pulse Ox 94% on R/A; Pain 0/10;tk1 15:17 Body Mass Index 23.02 (66.68 kg, 170.18 cm) ag7 MDM: 15:19 Patient medically screened. [facility] 18:49 Data reviewed: vital signs, nurses notes. Counseling: I had a detailed discussion with gui the patient and/or guardian regarding: the historical points, exam findings, and any diagnostic results supporting the discharge/admit diagnosis, lab results, radiology results, the need for outpatient follow up, to return to the emergency department if symptoms worsen or persist or if there are any questions or concerns that arise at home. 11/20 15:19 Order name: Basic Metabolic Panel; Complete Time: 18:14 [facility] 11/20 15:19 Order name: CBC with Diff; Complete Time: 16:32 [facility] 11/20 15:19 Order name: Troponin HS; Complete Time: 18:14 [facility] 11/20 15:19 Order name: XRAY Chest (1 view); Complete Time: 16:02 [facility] 11/20 15:20 Order name: CT Head Brain wo Cont; Complete Time: 15:58 [facility] 11/20 17:35 Order name: Urine Dipstick-Ancillary; Complete Time: 17:41 [facility] 11/20 15:19 Order name: EKG; Complete Time: 15:20 [facility] 11/20 15:19 Order name: Cardiac monitoring; Complete Time: 15:28 [facility] 11/20 15:19 Order name: EKG - Nurse/Tech; Complete Time: 16:05 [facility] 11/20 15:19 Order name: IV Saline Lock; Complete Time: 16:23 [facility] 11/20 15:19 Order name: Labs collected and sent; Complete Time: 16:23 [facility] 11/20 15:19 Order name: O2 Per Protocol; Complete Time: 16:23 [facility] 11/20 15:19 Order name: O2 Sat Monitoring; Complete Time: 16:23 [facility] 11/20 15:19 Order name: Urine Dipstick-Ancillary (obtain specimen); Complete Time: 17:37 [facility] Administered Medications: No medications were administered Disposition Summary: 11/20/21 18:49 Discharge Ordered Location: Home [facility] Condition: Stable [facility] Diagnosis - Person with feared health complaint in whom no diagnosis is made [facility] Followup: [facility] - With: Private Physician - When: 2 - 3 days - Reason: Recheck today's complaints, Continuance of care, Re-evaluation by your physician Discharge Instructions: - Discharge Summary Sheet bb Forms: - Medication Reconciliation Form gui - Thank You Letter gui - Antibiotic Education gui - Prescription Opioid Use gui - SBAR form bb Addendum: 11/23/2021 19:24 Co-signature as Attending Physician, Anthony Trujillo MD. r n Signatures: Dispatcher [employer] EDRonnie Flores PA PA jmm Nieto, Roman, MD MD rn Davies, Jonathon, RN RN jd3 Corrections: (The following items were deleted from the chart) 11/20 17:37 16:56 Vilam morfin. gui bp
--- NOTE | 2021-11-20 18:50 | ER ---
Nurse's Notes [facility] Name: Sigrid Angel Age: 71 yrs Sex: Female : 1950 Arrival Date: 11/20/2021 Time: 15:09 Bed 20 Private MD: Diagnosis: Person with feared health complaint in whom no diagnosis is made Presentation: 11/20 15:17 Chief complaint: EMS states: EMS reports the patient is not feeling well and thinks ag7 that she had a stroke this morning. Coronavirus screen: Client denies travel out of the [place] in the last 14 days. At this time, the client does not indicate any symptoms associated with coronavirus-19. Ebola Screen: Patient negative for fever greater than or equal to 101.5 degrees Fahrenheit, and additional compatible Ebola Virus Disease symptoms. Initial Sepsis Screen: Does the patient meet any 2 criteria? No. Patient's initial sepsis screen is negative. Does the patient have a suspected source of infection? No. Patient's initial sepsis screen is negative. Risk Assessment: Do you want to hurt yourself or someone else? Patient reports no desire to harm self or others. Onset of symptoms was November 20, 2021. 15:17 Method Of Arrival: EMS: [facility] ag7 15:17 Acuity: JAYE 3 ag7 Historical: - Allergies: 15:24 Codeine; jd3 15:24 Sulfa (Sulfonamide Antibiotics); jd3 - Home Meds: 15:24 acetaminophen 325 mg Oral tab 2 tabs every 6 hours [Active]; amlodipine 10 mg tab 1 tab jd3 once daily [Active]; aspirin 81 mg Oral chew 1 tab once daily [Active]; atorvastatin 80 mg oral tab 1 tab once daily [Active]; carvedilol 6.25 mg oral tab 1 tab 2 times per day [Active]; clopidogrel 75 mg oral tab 1 tab once daily [Active]; Combivent 18-103 mcg/actuation Inhl aero 2 puffs 4 times per day [Active]; folic acid 1 mg Oral tab 1 tab once daily [Active]; gabapentin 100 mg oral tab 2 cap twice a day [Active]; lactulose 20 gram/30 mL Oral soln 30 mL once daily [Active]; loratadine 10 mg oral tab 1 tab once daily [Active]; magnesium oxide 400 mg magnesium Oral tab 400 mg daily [Active]; methocarbamol 500 mg Oral tab 1 tabs every 8 hours [Active]; Senna-S 8.6-50 mg oral tab 2 tabs once daily [Active]; tramadol 50 mg Oral tab 1 tab every 6 hours [Active]; - PMHx: 15:24 COPD; esophageal varices; Hypertension; uterus CA; CVA; hyperlipidemia; jd3 - Immunization history:: Adult Immunizations unknown. - Social history:: Smoking status: unknown. Screenin:10 Abuse screen: Denies threats or abuse. Nutritional screening: No deficits noted. ag7 Tuberculosis screening: No symptoms or risk factors identified. Fall Risk No fall in past 12 months (0 pts). Secondary diagnosis (15 points) IV access (20 points). Ambulatory Aid- None/Bed Rest/Nurse Assist (0 pts). Gait- Weak (10 pts.). Mental Status- Oriented to own ability (0 pts). Assessment: 15:25 General: Appears in no apparent distress. comfortable, Behavior is calm, cooperative, ag7 appropriate for age. Pain: Denies pain. Neuro: Level of Consciousness is awake, alert, obeys commands, Oriented to person, situation, Appropriate for age Cosmetic Surgeon are weak bilaterally Speech is normal, Facial symmetry appears normal. Cardiovascular: Heart tones S1 S2 present Capillary refill < 3 seconds is brisk fingers toes Patient's skin is warm and dry. Respiratory: Airway is patent Trachea midline Respiratory effort is even, unlabored, Respiratory pattern is regular, symmetrical, Breath sounds are diminished bilaterally. 16:06 Reassessment: 1544 Patient give verbal permission for this nurse to communicate ag7 regarding care to POSaeed from [place], [place] Marissa Cao (daughter) [phone]. 17:00 Reassessment: No changes from previously documented assessment. Patient and/or family ag7 updated on plan of care and expected duration. Pain level reassessed. Patient is alert, oriented x 3, equal unlabored respirations, skin warm/dry/pink. 18:00 Reassessment: No changes from previously documented assessment. ag7 19:05 Reassessment: Assumed care. tk1 19:10 General: Appears in no apparent distress. comfortable, well groomed, well developed, tk1 well nourished, Behavior is calm. Pain: Denies pain. Neuro: Level of Consciousness is awake, alert, obeys commands, Oriented to person, place, time, situation, Appropriate for age Cosmetic Surgeon are equal bilaterally Moves all extremities. Gait is Speech is normal, Facial symmetry appears normal. Cardiovascular: Heart tones S1 S2 Capillary refill < 3 seconds is brisk in bilateral fingers Patient's skin is warm and dry. Respiratory: Airway is patent Respiratory effort is even, unlabored, Respiratory pattern is regular, symmetrical, Breath sounds are diminished bilaterally. in left lower lobe, right lower lobe, left posterior lower lobe and right posterior lower lobe. GI: No deficits noted. No signs and/or symptoms were reported involving the gastrointestinal system. : No deficits noted. No signs and/or symptoms were reported regarding the genitourinary system. : No deficits noted. No signs and/or symptoms were reported regarding the genitourinary system. EENT: No deficits noted. No signs and/or symptoms were reported regarding the EENT system. Derm: No deficits noted. No signs and/or symptoms reported regarding the dermatologic system. Musculoskeletal: No deficits noted. No signs and/or symptoms reported regarding the musculoskeletal system. 20:16 Reassessment: Report called to PATI Bruce at [facility]. tk1 Vital Signs: 15:17 BP 137 / 70; Pulse 72 MON; Resp 22 S; Temp 99.1(TE); Pulse Ox 95% on R/A; Weight 66.68 ag7 kg (R); Height 5 ft. 7 in. (170.18 cm) (R); Pain 0/10; 18:51 BP 152 / 74 LA (man/reg); Pulse 81 MON; Resp 16 S; Pulse Ox 95% ; Pain 0/10; ag7 19:00 BP 136 / 85 RA Supine (auto/reg); Pulse 72 MON; Resp 22 S; Temp 98.9(O); Pulse Ox 94% tk1 on R/A; Pain 0/10; 20:00 BP 128 / 68 RA Supine (auto/reg); Pulse 72 MON; Resp 22; Pulse Ox 94% on R/A; Pain 0/10;tk1 15:17 Body Mass Index 23.02 (66.68 kg, 170.18 cm) ag7 ED Course: 15:09 Patient arrived in ED. eb 15:10 Ronnie Mohan PA is PHCP. [facility] 15:10 Anthony Trujillo MD is Attending Physician. [facility] 15:17 Cira Peters, RN is Primary Nurse. ag7 15:25 Triage completed. ag7 15:25 Arm band placed on right wrist. ag7 15:33 CT Head Brain wo Cont In Process Unspecified. EDMS 15:44 XRAY Chest (1 view) In Process Unspecified. EDMS 16:10 Patient has correct armband on for positive identification. Placed in gown. Bed in low ag7 position. Call light in reach. Side rails up X2. 16:17 Inserted saline lock: 22 gauge in left antecubital area, using aseptic technique. Blood jd3 collected. 20:00 No provider procedures requiring assistance completed. IV discontinued, intact, tk1 bleeding controlled, No redness/swelling at site. Pressure dressing applied. Administered Medications: No medications were administered Outcome: 18:49 Discharge ordered by . [facility] 20:00 Discharged to senior living. Report called to PATI Brucemilitary lawyer form completed. tk1 20:00 Condition: stable 20:00 Discharge instructions given to patient, Instructed on discharge instructions, follow up and referral plans. Demonstrated understanding of instructions, follow-up care. 20:23 Patient left the ED. tk1 Signatures: Dispatcher [employer] EDMS Ronnie Mohan PA PA Jimmy Zapata, RN RN jd3 Tanika Jiménez Tammie tk1 Cira Peters, RN RN ag7 Corrections: (The following items were deleted from the chart) 20:17 20:14 Reassessment: Assumed care. tk1 tk1
[2021-11-20 20:33] VITALS: TEMP 98.9; O2SAT 94
[2021-11-20 20:34] VITALS: BP 128/68
--- NOTE | 2021-11-23 09:30 | EKG ---
Test Date: 2021-11-20 Test Time: 15:55:09 Field Sampling Technician: LUDWIN MEASUREMENT RESULTS: Intervals: Rate: 71 AK: 176 QRSD: 76 QT: 372 QTc: 404 [place]: P: 63 AK: 176 QRS: 45 T: 54 INTERPRETIVE STATEMENTS: Normal sinus rhythm Normal ECG Compared to ECG 07/05/2019 09:10:19 No significant changes Electronically Signed On 11-23-21 09:26:08 CDT by Kamari Don
== END 2021-11-20 20:23 | disposition home or self-care (01) ==
LOC: ER 15:06
DX: R53.1 Weakness (principal); Z71.1 Person with feared health complaint in whom no diagnosis is made; Z88.1 Allergy status to other antibiotic agents; Z88.5 Allergy status to narcotic agent
CPT/HCPCS: 36415; 70450; 71045; 80048; 81003; 84484; 85025; 93005; 99284

== ENCOUNTER 2021-11-25 02:53 | Observation (INO) | payer OTHER ==
--- OUTSIDE RECORDS SUMMARY | 2021-11-25 02:59 | XMS REPORT | Continuity of Care Document ---
:1950 Author Organization [facility] t Address [address] [place] [address] Care Team Providers Name Role Phone Glez [...] Unable to assess Univers ity of SARS-CoV-2 [facility] (event) [place] Tobacco use and 2016-09-02 2016-09-02 Never used Universit y of exposure 00:00:00 00:00:00 [facility] [place] [facility] Sex Assigned At [birth year] Universit y of 00:00:00 00:00:00 [facility] [place] [facility] Smoking Status Start Date Stop Date Source Current every day smoker 2016-09-02 00:00:00 Uni versity of [facility] [place] [facility] Medications Ordered Filled Start Stop Current Ordering Indication Dosage Frequency Signature Comments Components Source Medication Medication Date Date Medication? Clinician (SIG) Name Name clopidogreL 2021- Yes [id number] 75mg Take 1 Univers 75 mg 11-04 tablet by ity of tablet 00:00: 04:59 mouth [place] 00 :00 daily for Medical 91 days. Branch clopidogreL 2021- Yes [id number] 75mg Take 1 Univers 75 mg 11-04 tablet by ity of tablet 00:00: 04:59 mouth [place] 00 :00 daily for Medical 91 days. Branch amLODIPine 2021- Yes [id number] 10mg Take 1 Univers 10 mg 11-04- tablet by ity of tablet 00:00: 04:59 mouth [place] 00 :00 daily for Medical 60 days. Branch magnesium 2021- Yes [id number] 400mg Take 400 Univers oxide 420 11-04- mg by ity of mg Tab 00:00: 04:59 mouth [place] 00 :00 daily for Medical 60 days. Branch foLIC acid 2021- Yes [id number] 1mg Take 1 Univers 1 mg tablet 11-04- tablet by it y of 00:00: 04:59 mouth [place] 00 :00 daily for Medical 60 days. Branch amLODIPine 2021- Yes [id number] 10mg Take 1 Univers 10 mg 11-04- tablet by ity of tablet 00:00: 04:59 mouth [place] 00 :00 daily for Medical 60 days. Branch magnesium 2021- Yes [id number] 400mg Take 400 Univers oxide 420 11-04- mg by ity of mg Tab 00:00: 04:59 mouth [place] 00 :00 daily for Medical 60 days. Branch foLIC acid 2021- Yes [id number] 1mg Take 1 Univers 1 mg tablet [...] Discontinu ed, Routine aspirin 81 2022- Yes [id number] 81mg Take 1 Univers mg chewable 11-03-04 tablet by it y of tablet 00:00: 05:59 mouth [place] 00 :00 daily for Medical 360 days. Branch aspirin 81 2022- Yes [id number] 81mg Take 1 Univers mg chewable 11-03 tablet by it y of tablet 00:00: 05:59 mouth [place] 00 :00 daily for Medical 360 days. Branch atorvastati 2021- Yes [id number] 80mg Take 1 Univers n 80 mg 11-03 tablet by ity of tablet 00:00: 04:59 mouth at [place] 00 :00 bedtime Medical for 90 Branch days. carvediloL 2021- Yes [id number] 6.25mg Take 1 Univers 6.25 mg 11-03 tablet by ity of tablet 00:00: 04:59 mouth 2 [place] 00 :00 (two) Medical times Branch daily with meals for 90 days. atorvastati 2021- Yes [id number] 80mg Take 1 Univers n 80 mg 11-03 tablet by ity of tablet 00:00: 04:59 mouth at [place] 00 :00 bedtime Medical for 90 Branch days. carvediloL 2021- Yes [id number] 6.25mg Take 1 Univers 6.25 mg 11-03 tablet by ity of tablet 00:00: 04:59 mouth 2 [place] 00 :00 (two) Medical times [place] daily with meals for 90 days. labetaloL 2021- No 10mg 10 mg, Unive rs (NORMODYNE) 3- 03-05 Slow IV ity of injection 03:15: 02:10 Push, [place] 10 mg 00 :00 ONCE, 1 Medical dose, On Branch Tue10/30/21 at 2115, [place]ILLIAN amLODIPine 2021- No 5mg 5 mg, Unive rs (NORVASC) - 03-08 Oral, ity of tablet 5 mg [...] 00 :52 First dose Medic al on [place] Branch 10/29/21 at 2145, Until Discontinu ed, Routine atorvastati Yes 80mg 80 mg, Univ ers n (LIPITOR) 3-04 Oral, QHS, it y of tablet 80 03:00: First dose [place] mg 00 on [facility] Medical 10/29/21 at Branch 2100, Until Discontinu ed, Routine thiamine 2021- No 500mg IV Univers (VITAMIN 10-3006 Piggyback, ity of B1) 500 mg 02:00: 20:00 TID, 9 [place] in NaCl 00 :00 doses, Medical 0.9% (NS) First dose Bran ch piggyback (after last modificati on) on [facility] 10/29/21 at 2000, Last dose on [place] 11/01/21 at 1400, 100 mL iopamidol 2021- No [id number] 80mL 80 mL, U nivers (ISOVUE 10-29 Intravenou ity o f 370-500 mL) 21:18: 21:19 s, ONCE, 1 [place] injection 00 :00 dose, On Medica l 80 mL [facility] 10/29/21 Branch at 1530, Routine sulfur 2021- No [id number] 5mL 5 mL, Unive rs hexafluorid 10-29 Intravenou i ty of e microsphr 18:15: 16:05 s, ONCE, 1 [place] (LUMASON) 00 :00 dose, On Medica l injection 5 Tue10/29/21 Br anch mL at 1215, Routine
sales team member approving Restricted medication : JENNIFERJdMINNA clopidogreL Yes 75mg 75 mg, [facility] ers (PLAVIX) 75 10-29 Oral, ity of mg tablet 15:00: DAILY, [place] 75 mg 00 First dose Medical on [facility] Branch 10/29/21 at 0900, Until Discontinu ed, Routine aspirin Yes 81mg 81 mg, Univers chewable 10-29 Oral, ity of tablet 81 15:00: DAILY, [place] mg 00 First dose Medical on [facility] Branch 10/29/21 at 0900, Until Discontinu ed, Routine foLIC acid Yes 1mg 1 mg, [facility] s (FOLATE) 10-29 Oral, ity of tablet 1 mg 15:00: DAILY, [place] 00 First dose Medical on [facility] Branch 10/29/21 at 0900, Until Discontinu ed, Routine albuterol-i Yes 2{puff} 2 Puff, Univers pratropium 10-29 Inhalation ity of (COMBIVENT 02:00: , BID, [place] RESPIMAT) 00 First dose Medi nancy 20-100 (after Branch mcg/actuati last on inhaler modificati 2 Puff on) on Tue10/28/21 at 2000, Until Discontinu ed, Routine
Is this order for a patient with suspected or confirmed COVID-19 infection? No
D oes this order have Pulmonary/ Critical Care approval? No gadobenate 2021- No [id number] .2mL/kg 17.7 mL Univers dimeglumine 10-29 (0.2 mL/kg i ty of (MULTIHANCE 01:30: 01:30 ?88.5 kg), [place] -20 mL) 00 :00 Intravenou Medica l injection s, ONCE, 1 Bran ch 17.7 mL dose, On Tue10/28/21 at 1930, Routine nicotine Yes 1{patch 1 Patch, [place] (NICODERM) 3-02 } Topical, ity o f 21 mg/24 hr 23:00: Administer [place] patch 1 00 over 24 Medical Patch Hours, Branch Q24H, First dose on Tue10/28/21 at 1700, Until Discontinu ed, Routine enoxaparin 0 Yes 40mg 40 mg, Unive rs (LOVENOX) [...] No 25mg 25 mg, Univ ers succinate 10-28 03- Oral, ity of XL (TOPROL 15:00: 03:43 DAILY, [place] XL) tablet 00 :08 First dose Med ical 25 mg on Tue Branch 10/28/21 at 0900, Until Discontinu ed, Routine aloe vera 2021-0 Yes Topical, Univ ers (DERMAIDE 10-28 TID, First ity of ALOE) cream 14:00: [...] 10-28 Oral, ity of (TYLENOL) 08:54: Q6HPRN, [place] tablet 650 32 Starting Medic al mg [...] 10-28 Oral, ity of (ROBAXIN) 08:54: TIDPRN, [place] tablet 500 04 Starting Medic al mg on Tue10/28/21 at 0254, Until Discontinu ed, Routine, msucle cramps metoprolol 2021- No 5mg 5 mg, Slow Univers (LOPRESSOR) 10-28 IV Push, ity of injection 5 06:00: 05:03 ONCE, 1 [place] mg 00 :00 dose, On Medical Tue10/28/21 Branch at 0000, LILLIAN lisinopriL 2021- No 20mg 20 mg, Univ ers (PRINIVIL,Z 224 02-24 Oral, ity of ESTRIL) 03:45: 02:42 ONCE, 1 [place] tablet 20 00 :00 dose, On Medica l mg Wed Branch 10/21/21 at 2145, Routine lisinopril 2021- No 20mg Take 20 mg Univers 20 mg 10-21- by mouth 2 ity of tablet 20:40: 00:00 (two) [place] 39 :00 times Medical daily. Branch lisinopriL Yes [id number] 20mg Take 1 U nivers 20 mg - tablet by ity of tablet 00:00: mouth [place] 00 daily. Medical Branch lisinopriL 2021- No [id number] 20mg Take 1 Univers 20 mg 10-21 03-08 tablet by ity of tablet 00:00: 00:00 mouth [place] 00 :00 daily. Medical Branch methocarbam 2019-0 Yes [id number] 500mg Take 1 Univers oL 500 mg 05-21 [id number] tablet by ity of tablet 00:00: mouth 3 00 (three) Medical times Branch daily as needed (msucle cramps). methocarbam 2019-0 Yes [id number] 500mg Take 1 Univers oL 500 mg 05-21 [id number] tablet by ity of tablet 00:00: mouth 3 00 (three) Medical times Branch daily as needed (msucle cramps). methocarbam 2020-0 Yes [id number] 500mg Take 1 Univers oL 500 mg 05-21 [id number] tablet by ity of tablet 00:00: mouth 3 00 (three) Medical times Branch daily as needed (msucle cramps). methocarbam 2020-0 Yes [id number] 500mg Take 1 Univers oL 500 mg 05-21 [id number] tablet by ity of tablet 00:00: mouth 3 00 (three) Medical times Branch daily as needed (msucle cramps). albuterol-i Yes 2{puff} Inhale 2 Univers pratropium 1-07 Puffs 4 ity of (COMBIVENT 00:00: (four) [place] RESPIMAT) 00 times Medical 20-100 daily. Branch mcg/actuati on inhaler albuterol-i Yes 2{puff} Inhale 2 Univers pratropium 1-07 Puffs 4 ity of (COMBIVENT 00:00: (four) [place] RESPIMAT) 00 times Medical 20-100 daily. Branch mcg/actuati on inhaler albuterol-i Yes 2{puff} Inhale 2 Univers pratropium 1-07 Puffs 4 ity of (COMBIVENT 00:00: (four) [place] RESPIMAT) 00 times Medical 20-100 daily. Branch mcg/actuati on inhaler albuterol-i Yes 2{puff} Inhale 2 Univers pratropium 1-07 Puffs 4 ity of (COMBIVENT 00:00: (four) [place] RESPIMAT) 00 times Medical 20-100 daily. Branch mcg/actuati on inhaler lisinopril Yes 20mg Take 20 mg U nivers 20 mg 1-09 by mouth 2 ity of tablet 19:10: (two) [place] 50 times Medical daily. Branch metoprolol Yes 25mg Take 25 mg U nivers succinate 1-09 by mouth ity of XL 25 mg 24 19:10: daily. [place] hr tablet 50 Medical Branch penicillin 0 Yes 500mg Take 500 [place] v potassium 1-09 mg by ity of 500 mg 19:10: mouth 4 [place] tablet 50 (four) Medical times [place] daily. gabapentin 2017 Yes 300mg Take 300 Un [place] 300 mg 1-09 mg by ity of capsule 19:10: mouth 2 [place] 50 (two) Medical times [place] daily. metoprolol Yes 25mg Take 25 mg U nivers succinate 1-09 by mouth ity of XL 25 mg 24 13:10: daily. [place] hr tablet 50 Medical Branch penicillin 2016-0 Yes 500mg Take 500 [place] v potassium 1-09 mg by ity of 500 mg 13:10: mouth 4 [place] tablet 50 (four) Medical times [place] daily. gabapentin 2017- Yes 300mg Take 300 [place] 300 mg 1-09 mg by ity of capsule 13:10: mouth 2 [place] 50 (two) Medical times [place] daily. Immunizations Ordered Filled Immunization Date Status Comments [facility] e Immunization Name Name Pneumococcal 2019-07-04 Completed [place] o f Polysaccharide, 00:00:00 [facility] PPSV23 (PNEUMOVAX) Branch Pneumococcal 2019-07-04 Completed [place] o f Polysaccharide, 00:00:00 [place] [facility] ical PPSV23 (PNEUMOVAX) Branch Vital Signs Vital Name Observation Time Observation Value Comments Source Heart rate 2021-11-04 00:59:00 87 /min Universi ty of [place] [facility] [place] Respiratory rate 2021-11-04 00:59:00 18 /min Univ ersity of [facility] [place] [facility] Oxygen saturation in 2021-11-04 00:59:00 97 /min University of Arterial blood by [place] [employer] [facility] Pulse oximetry Branch Systolic blood 2021-11-03 22:18:00 161 mm[Hg] Univer sity of pressure [place] [facility] Branch Diastolic blood 2021-11-03 22:18:00 79 mm[Hg] Unive rsity of pressure [facility] [place] [facility] Body temperature 2021-11-03 22:18:00 36.72 Dariana Univ ersity of [place] [facility] [place] Body height 2021-10-29 18:10:00 170.2 cm Universi ty of [place] [facility] [place] Body weight 2021-10-29 18:10:00 88.451 kg Universi ty of [place] [facility] [place] BMI 2021-10-29 18:10:00 30.54 kg/m2 Universi ty [facility] [place] [facility] Medical Branch Systolic blood 2021-10-22 02:35:00 206 mm[Hg] Univer sity of pressure [place] [facility] Diastolic blood 2021-10-22 02:35:00 113 mm[Hg] Unive rsity of pressure [place] [facility] [place] Heart rate 2021-10-22 02:35:00 72 /min Universi ty of [place] [facility] [place] Respiratory rate 2021-10-22 02:35:00 19 /min Univ ersity of [facility] [place] [facility] Oxygen saturation in 2021-10-22 02:35:00 98 /min University of Arterial blood by [facility] Pulse oximetry Branch Body temperature 2021-10-21 22:51:02 36.28 Dariana Univ ersity of [place] [facility] [place] Body weight 2021-10-21 22:41:00 89.359 kg Universi ty of [facility] [place] [facility] BMI 2021-10-21 22:41:00 30.85 kg/m2 Universi ty of [facility] Branch Systolic blood 2020-05-21 09:56:54 175 mm[Hg] Univer sity of pressure [place] [facility] Diastolic blood 2020-05-21 09:56:54 100 mm[Hg] Unive rsity of pressure [facility] [place] [facility] Heart rate 2020-05-21 09:56:54 72 /min [facility] Respiratory rate 2020-05-21 09:56:54 16 /min [facility] Oxygen saturation in 2020-05-21 09:56:54 96 /min [facility] Arterial blood by [facility] Pulse oximetry Branch Body temperature 2020-05-21 07:49:00 37.17 Dariana [facility] Body height 2020-05-21 07:49:00 170.2 cm [facility] Body weight 2020-05-21 07:49:00 89.359 kg [facility] BMI 2020-05-21 07:49:00 30.85 kg/m2 [facility] Procedures Procedure Date / Time Performing Clinician Source Performed DNR 2021-11-10 05:01:00 Doctor Unassigned, [facility] [place] Medical Branch COVID-19 (ID NOW RAPID 2021-11-03 21:35:00 Marcus [facility] TESTING) Medical Branch LAB ONLY COVID 2021-11-03 21:35:00 [facility] o f [place] INTERPRETATION [facility] BASIC METABOLIC PANEL 2021-11-03 09:52:00 Addis Stevenson [facility] (NA, K, CL, CO2, GLUCOSE, Medica l Branch BUN, CREATININE, CA) BASIC METABOLIC PANEL 2021-11-02 10:26:00 Daisha Red [facility] (NA, K, CL, CO2, GLUCOSE, Danielle Medica l Branch BUN, CREATININE, CA) BASIC METABOLIC PANEL 2021-11-01 12:19:00 Daisha Red [facility] (NA, K, CL, CO2, GLUCOSE, Danielle Medica l Branch BUN, CREATININE, CA) MAGNESIUM 2021-10-31 08:59:00 Amarilis Mcgarry [facility] BASIC METABOLIC PANEL 2021-10-31 08:59:00 Marcus [facility] (NA, K, CL, CO2, GLUCOSE, Medica l Branch BUN, CREATININE, CA) HB ECG ROUTINE & RHYTHM 2021-10-30 23:12:18 Daisha Red [facility] STRIP [place] Medical Branch CAROTID DUPLEX BILATERAL 2021-10-30 16:19:00 Marcus [facility] - BY VASCULAR LAB Medical Branch MAGNESIUM 2021-10-30 09:24:00 Santos [facility] BASIC METABOLIC PANEL 2021-10-30 09:24:00 Nila Graham [facility] (NA, K, CL, CO2, GLUCOSE, Medica l Branch BUN, CREATININE, CA) CBC WITH DIFF 2021-10-30 09:24:00 Santos [facility] MR THORACIC SPINE WO 2021-10-30 02:28:32 Marcus [facility] CONTRAST [facility] MR CERVICAL SPINE WO 2021-10-30 02:22:05 Marcus [facility] CONTRAST [facility] CT ANGIOGRAM HEAD 2021-10-29 21:28:23 Santos [facility] CT ANGIOGRAM NECK 2021-10-29 21:28:23 Santos [facility] DUPLEX VENOUS LEGS 2021-10-29 18:20:14 [facility] BIL[facility]AL - BY VASCULAR Medical Branch LAB TRANSTHORACIC ECHO (TTE) 2021-10-29 16:10:00 Nila Graham [facility] COMPLETE W/ CONTRAST Medical Bra [facility] GLYCOSYLATED HEMOGLOBIN 2021-10-29 09:55:00 Santos [facility] (A1C) [facility] ALDOLASE 2021-10-29 09:54:00 Santos [facility] MAGNESIUM 2021-10-29 09:54:00 Santos [facility] THYROID STIMULATING 2021-10-29 09:54:00 [facility] HORMONE [facility] COPPER, SERUM 2021-10-29 09:34:00 Santos [facility] ZINC, SERUM 2021-10-29 09:34:00 Santos [facility] EXTRA TUBE LT. GREEN 2021-10-29 09:34:00 Shanina, Evy [facility] MR LUMBAR SPINE W WO 2021-10-29 01:19:00 Santos [facility] CONTRAST [facility] MR BRAIN WO CONTRAST 2021-10-29 01:18:32 Nila Graham [facility] PHOSPHORUS 2021-10-28 12:28:00 Santos [facility] CREATINE KINASE 2021-10-28 12:28:00 Santos [facility] URIC ACID 2021-10-28 12:28:00 Santos [facility] VITAMIN B12, LEVEL 2021-10-28 12:28:00 Santos [facility] FOLATE 2021-10-28 12:28:00 Santos [facility] BASIC METABOLIC PANEL 2021-10-28 12:28:00 Nila Graham [facility] (NA, K, CL, CO2, GLUCOSE, Medica l Branch BUN, CREATININE, CA) LIPID PANEL ([id number])(TOTAL 2021-10-28 12:28:00 Nila Graham [facility] CHOLESTEROL, [facility] TRIGLYCERIDES, HDL) CBC WITH DIFF 2021-10-28 11:51:00 Santos [facility] ANTI-NUCLEAR ANTIBODY 2021-10-28 11:51:00 Santos [facility] SCREEN [facility] ANTI-SSB(LA) 2021-10-28 11:51:00 Santos [facility] ANTI-NUCLEAR 2021-10-28 11:51:00 Santos [facility] ANTIBODY-PATHOLOGIST Medical [facility] INTERPRETATION CT ANGIOGRAM HEAD 2021-10-28 11:25:44 Santos [facility] XR FOOT <3 VW RIGHT 2021-10-28 02:10:00 Suresh Burgess [facility] URINALYSIS 2021-10-28 01:25:00 Suresh Burgess [facility] CREATINE KINASE 2021-10-28 00:46:00 Aditya Suresh [facility] MAGNESIUM 2021-10-28 00:46:00 Suresh Burgess [facility] COMP. METABOLIC PANEL 2021-10-28 00:46:00 Suresh Burgess [facility] ([id number]) Medical Branch XR CHEST 1 VW 2021-10-28 00:45:00 Suresh Burgess [facility] CT CERVICAL SPINE WO 2021-10-28 00:38:17 Suresh Burgess [facility] CONTRAST [facility] CT HEAD WO CONTRAST 2021-10-28 00:38:17 Suresh Buregss [facility] CT LUMBAR SPINE WO 2021-10-28 00:38:17 Suresh Burgess [facility] CONTRAST [facility] CT THORACIC SPINE WO 2021-10-28 00:38:17 Suresh Burgess [facility] C-REACTIVE PROTEIN 2021-10-28 00:02:00 Suresh Burgess [facility] SEDIMENTATION RATE 2021-10-28 00:02:00 Suresh Burgess [facility] CBC WITH DIFF 2021-10-28 00:02:00 Suresh Burgess [facility] PROTHROMBIN TIME / INR 2021-10-28 00:01:00 Suresh Burgess [facility] ACTIVATED PARTIAL 2021-10-28 00:01:00 Suresh Burgess [facility] THRLAS [facility] Branch COVID-19 (ID NOW RAPID 2021-10-28 00:01:00 Suresh Burgess [facility] TESTING) Medical Branch LAB ONLY COVID 2021-10-28 00:01:00 Suresh Burgess [facility] INTERPRETATION [facility] NOTICE OF PRIVACY 2021-10-27 23:26:08 Doctor Oskar, [facility] PRACTICES [place] [facility] [place] CONSENT/REFUSAL FOR 2021-10-27 23:25:48 [facility] DIAGNOSIS AND TREATMENT [place] [facility] [place] HOSPITAL ADMISSION 2021-10-27 06:01:00 Doctor Oskar [facility] [place] [facility] [place] XR CERVICAL SPINE 2 VW 2021-10-22 00:36:00 Caren Cazares [facility] XR LUMBAR SPINE 1 VW 2021-10-22 00:36:00 Caren Cazares [facility] XR SPINE THORACIC 2 VW 2021-10-22 00:36:00 Caren Cazares [facility] XR PELVIS <3 VW 2021-10-22 00:36:00 Caren Cazares [facility] CREATINE KINASE 2020-05-21 07:52:00 Suresh Burgess [facility] MAGNESIUM 2020-05-21 07:52:00 Aditya Suresh [facility] BASIC METABOLIC PANEL 2020-05-21 07:52:00 Suresh Burgess [facility] (NA, K, CL, CO2, GLUCOSE, Medica l Branch BUN, CREATININE, CA) D-DIMER 2020-05-21 07:52:00 Aditya Suresh [facility] NOTICE OF PRIVACY 2020-05-21 07:37:03 Doctor Oskar, [facility] PRACTICES [place] [facility] CONSENT/REFUSAL FOR 2020-05-21 07:35:15 Doctor [facility]skar [facility] DIAG[facility]IS [facility] TREATMENT [place] [facility] Encounters Start End Encounter Admission Attending Care Care Encounter Source Date/Time Date/Time Type Type Clinicians Facility Department ID 2021-06-26 Emergency [facility] [id number] [facility]10 2021-11-10 Orders Doctor CABRERA [id number] Univers 00:00:00 00:00:00 Only Unassigned, GREG [id number] ity of [place] [facility] 4.2.7.2.686 [facility] [id number] [facility] 009 Branch 2021-10-27 2021-11-03 Inpatient X [facility] RADHA [id number] Univers 17:27:00 20:00:00 [facility] 2021-10-27 2021-11-03 Hospital Suresh Burgess [id number] Univers 17:27:00 20:00:00 Encounter Anita [facility] [id number] [facility] 4.2.7.2.686 [place] [id number] [facility] 098 Branch 2021-10-21 2021-10-21 Emergency X [facility] ERT [id number] Univers 16:47:00 21:00:00 CAREN hannon [facility] 2021-10-21 2021-10-21 Emergency Debora [facility] [id number] Univers 16:47:00 21:00:00 Caren COOLEY [id number] i ty of [place] 4.2.7.2.686 [facility] [id number] [address] 2020-05-21 2020-05-21 [facility] [id number] Univers 02:45:00 05:07:00 Suresh Cooley [id number] i ty of [place] 4.2.7.2.686 [facility] [id number] [address] Results Test Description Test Time Test [...] intervals for t his test in the [facility] Laboratory Test Directory ([employer]).P erformed By: [facility] [place] [id number] aboratory Director: Chely Gaviria MD Lab Interpretation (test code Abnormal = 61603-9) [facility] (NA, K, CL, CO2, GLUCOSE, BUN, CREATININE, CA)2021-11-03 10:35:46 Test Item Value Reference Range Interpretation Comments NA (test code = 130 mmol/L 135-145 L [id number]) K (test code = 3.9 mmol/L 3.5-5.0 0783455949) CL (test code = 100 mmol/L 98-108 0010935569) CO2 TOTAL (test code = 27 mmol/L 23-31 6261027449) AGAP (test code = 2-16 7391818482) BUN (test code = 28 mg/dL 7-23 H [id number]) GLUCOSE (test code = 96 mg/dL 70-110 5825140182) CREATININE (test code = 1.36 mg/dL 0.50-1.04 H [id number]) CALCIUM (test code = 8.9 mg/dL 8.6-10.6 1684643719) eGFR (test code = mL/min/1.73m2 9875274921) FILEMON (test code = FILEMON) Association of [...] tests). Lab Interpretation Abnormal (test code = 30596-4) [facility] METABOLIC PANEL (NA, K, CL, CO2, GLUCOSE, BUN, CREATININE, CA)2021-11-02 11:21:54 Test Item Value Reference Range Interpretation Comments NA (test code = 132 mmol/L 135-145 L [id number]) K (test code = 4.2 mmol/L 3.5-5.0 9681094377) CL (test code = 100 mmol/L 98-108 5396815433) CO2 TOTAL (test code = 26 mmol/L 23-31 8671760173) AGAP (test code = 2-16 4642297382) BUN (test code = 19 mg/dL 7-23 4102884392) GLUCOSE (test code = 114 mg/dL 70-110 H 6579839669) CREATININE (test code = 1.31 mg/dL 0.50-1.04 H 1088360291) CALCIUM (test code = 8.9 mg/dL 8.6-10.6 2680773020) eGFR (test code = mL/min/1.73m2 2635130049) FILEMON (test code = FILEMON) Association of [...] tests). Lab Interpretation Abnormal (test code = 98916-0) [facility], [id number] 18:58:02 Test Item Value Reference Range Interpretation [...] ts performance carine racteristics determined by [facility]. I t has not been cleared or approved by the [place] Food and Drug Administration. This test was performed i n a CLIA certified labor atory and is intended for cl inical purposes.Perfor med By: [facility] [address] [id number] Director: Chely Gaviria MD [facility], [id number] 18:58:01 Test Item Value Reference Range Interpretation [...] i ts performance characteristics determined by [facility]. I t has not been cleared or approved by the [place] Food and Drug Administration. This test was performed i n a CLIA certified labor atory and is intended for clinical purposes.Perfor med By: [facility] [address] [place] [id number] aboratory Director: Chely Gaviria MD [facility] METABOLIC PANEL (NA, K, CL, CO2, GLUCOSE, BUN, CREATININE, CA)2021-11-01 13:00:41 Test Item Value Reference Range Interpretation Comments NA (test code = 134 mmol/L 135-145 L 2875112370) K (test code = 4.6 mmol/L 3.5-5.0 Slight 0485797554) hemolysis CL (test code = 104 mmol/L 98-108 5332197054) CO2 TOTAL (test code 27 mmol/L 23-31 = 5245160264) AGAP (test code = 2-16 6068691987) BUN (test code = 20 mg/dL 7-23 Slight 7902821046) hemolysis GLUCOSE (test code = 108 mg/dL 70-110 8384344536) CREATININE (test code 1.35 mg/dL 0.50-1.04 H = 2718332579) CALCIUM (test code = 9.0 mg/dL 8.6-10.6 1553121910) eGFR (test code = mL/min/1.73m2 3267930185) FILEMON (test code = FILEMON) Association of [...] tests). Lab Interpretation Abnormal (test code = 85763-5) [facility] METABOLIC PANEL (NA, K, CL, CO2, GLUCOSE, BUN, CREATININE, CA)2021-10-31 09:36:58 Test Item Value Reference Range Interpretation Comments NA (test code = 139 mmol/L 135-145 7469885476) K (test code = 4.3 mmol/L 3.5-5.0 8730467870) CL (test code = 107 mmol/L 98-108 0777876614) CO2 TOTAL (test code = 28 mmol/L 23-31 1952620079) AGAP (test code = 2-16 0393864933) BUN (test code = 23 mg/dL 7-23 3717461659) GLUCOSE (test code = 104 mg/dL 70-110 9247028851) CREATININE (test code = 1.36 mg/dL 0.50-1.04 H 7621094761) CALCIUM (test code = 8.9 mg/dL 8.6-10.6 9127064370) eGFR (test code = mL/min/1.73m2 7462164834) FILEMON (test code = FILEMON) Association of [...] tests). Lab Interpretation Abnormal (test code = 87647-3) [facility] 09:36:58 Test Item Value Reference Range Interpretation Comments MAGNESIUM (test code = 5216122238) 2.1 mg/dL 1.7-2.4 Lab Interpretation (test code = Normal 90681-1) [facility] (NA, K, CL, CO2, GLUCOSE, BUN, CREATININE, CA)2021-10-30 10:19:21 Test Item Value Reference Range Interpretation Comments NA (test code = 131 mmol/L 135-145 L 9439150598) K (test code = 3.9 mmol/L 3.5-5.0 1887653057) CL (test code = 101 mmol/L 98-108 1223088852) CO2 TOTAL (test code = 30 mmol/L 23-31 1538016648) AGAP (test code = <1 2-16 L 9888510195) BUN (test code = 29 mg/dL 7-23 H 8355366183) GLUCOSE (test code = 89 mg/dL 70-110 6288216749) CREATININE (test code = 1.65 mg/dL 0.50-1.04 H 2655607744) CALCIUM (test code = 8.9 mg/dL 8.6-10.6 8419181217) eGFR (test code = mL/min/1.73m2 3824994036) FILEMON (test code = FILEMON) Association of [...] tests). Lab Interpretation Abnormal (test code = 19891-1) [facility] 10:00:18 Test Item Value Reference Range Interpretation Comments MAGNESIUM (test code = 7738267260) 2.2 mg/dL 1.7-2.4 Lab Interpretation (test code = Normal 61248-4) [facility] WITH [id number] 09:39:38 Test Item Value Reference Range Interpretation Comments WBC (test code = See_Comment [Automated 2095-2) message] The sy stem which generated this result transmitted reference range : 4.30 - 11.10 10*3/?L. The reference range was not used to interpret this result as normal/abnormal . RBC (test code = See_Comment [Automated 872-3) message] The sy stem which generated this [...] RDW-SD (test code = 44.9 fL 39.0-49.9 85471-8) RDW-CV (test code = 12.5 % 12.0-15.5 788-0) PLT (test code = See_Comment [Automated 777-3) message] The sy stem which generated this result transmitted reference range : 166 - 358 10*3/ ?L. The reference r chata was not used to interpret this result as normal/abnormal . MPV (test code = 10.3 fL 9.5-12.9 17682-2) NRBC/100 WBC (test See_Comment [Automat ed code = 9802926888) message] The system which generated this result transmitted reference range : 0.0 - 10.0 /100 WBCs. The refer ence range was not u sed to interpret th is result as normal/abnormal . NRBC x10^3 (test code <0.01 See_Comment [Auto mated = 8504769277) message] The s ystem which generated this result transmitted reference range : 10*3/?L. The reference range was not used to interpret this result as normal/abnormal . GRAN MAT (NEUT) % 74.2 % (test code = 770-8) IMM GRAN % (test code 0.20 % = 3279674946) LYMPH % (test code = 13.2 % 736-9) MONO % (test code = 8.2 % 5905-5) EOS % (test code = 3.7 % 713-8) BASO % (test code = 0.5 % 706-2) GRAN MAT x10^3(ANC) 4.62 10*3/uL 1.88-7.09 (test code = 4584782055) IMM GRAN x10^3 (test <0.03 0.00-0.06 code = 0855326791) LYMPH x10^3 (test code 0.82 10*3/uL 1.32-3.29 L = 731-0) MONO x10^3 (test code 0.51 10*3/uL 0.33-0.92 = 742-7) EOS x10^3 (test code = 0.23 10*3/uL 0.03-0.39 711-2) BASO x10^3 (test code 0.03 10*3/uL 0.01-0.07 = 704-7) Lab Interpretation Abnormal (test code = 06198-5) [facility]2021-10-29 23:44:58 Test Item Value Reference Range Interpretation Comments LVOT stroke volume (test 67.30 cm3 code = 0270177548) LVOT diameter (test code 1.98 cm = 8610208628) MV Peak E Silvano (test code 69.0 cm/s = 5804051387) MV Peak A Silvano (test code 96.0 cm/s = 8898800726) E/A ratio (test code = ratio 7936915179) E wave decelartion time 0.40 s (test code = 3459255425) MV E/e' septal (test code 5.8 cm/s = 6947764564) LA Volume Index (BP) 25.9 mL/m2 (test code = 0956623126) LA volume (BP) (test code 51.9 mL = 4798445579) LVOT peak silvano (test code 92.1 cm/s = 1656152859) LVOT mn grad (test code = mmHg 1688878050) Left Ventricular Cardiac 4.1 L/min Output (test code = 1901374) LA size (test code = 3.2 cm 4986588677) LAV(MOD-sp2) (test code = 45.90 mL 9759167622) LAV(MOD-sp4) (test code = 45.00 mL 9950045215) Tapse (test code = 1.65 cm 9903060513) AV LVOT peak gradient mmHg (test code = 3021203453) LVOT peak VTI (test code 21.8 cm = 2631215148) Aortic HR (test code = BPM 0683264944) LV V1 mean (test code = 63.90 cm/s 5840431244) MV Prop V (test code = 45.30 cm/s 0224447373) TR Peak Silvano (test code = 241.6 cm/s 3579944606) Triscuspid Valve mmHg Regurgitation Peak Gradient (test code = 6279493233) Ao root annulus (test 3.2 cm code = 0423558074) Ao root diam (test code = 3.20 cm 6082884073) Aortic root (test code = 3.2 cm 2556847523) LVPWD (test code = 0.85 cm 4549982540) PW (test code = 0.85 cm 0.6-1.9 6701846873) IVS (test code = 1.04 cm 1760562645) Interventricular Septum 1.04 cm Diastolic Thickness by 2D (test code = 5218042) LVIDD (test code = 4.80 cm 1008097386) EF(Teich) (test code = 49.00 % 0388270402) LVIDS (test code = 3.60 cm 6024715427) FS (test code = 25 % 8166160667) EF - 2D (test code = 49.00 % 97206502) Radiology Study observation (narrative) (test code = 62008-4) FILEMON (test code = FILEMON) ?Left?Ventricle: Left [...] (88.5 kg) 2.04 sq meters 167/85 64 [facility] CenterANTI-NUCLEAR ANTIBODY-PATHOLOGIST [id number] 18:12:41ANA - Pathologist InterpretationANA HEp-2 IIFA Pathologist [...] thyroid disease, discoid lupus, or fibromyalgia. (https:// pubmed.ncbi.nlm.nih.gov/32420287/, https://pubmed.ncbi.nlm.nih.gov/67023832/) ? ? Therefore, a diagnosis cannot be based exclusively on JELANI detection and/or pattern and thus should be made via the integration of patient history, physical exam findings, and other diagnostic tests as clinically indicated. Ellie Hyatt MD ?10/29/2021 ?12:12 [facility] LABORATORY SERVICESUnCrescent Medical Center LancasterThyroid Stimulating Blinazj4383-62-86 14:10:03 Test Item Value Reference Range Interpretation Comments TSH (test code = See_Comment [Automated message] 8832466348) The system [employer] generated this result transmitted ref erence range: 0.45 - 4 .70 mIU/L. The refe rence range was not u sed to interpret this result as normal/abnor mal. Lab Interpretation (test Normal code = 76804-4) [facility] CenterGLYCOSYLATED HEMOGLOBIN (A1C)2021-10-29 12:14:25 Test Item Value Reference Range Interpretation Comments HGB A1C (test code = 5.1 % 4.0-5.7 4548-4) FILEMON (test code = FILEMON) Reference RangesNormal: <5.7%Prediabetes: 5.7 - 6.4%Diabetes: > 6.5% Lab Interpretation (test Normal code = 70537-7) [facility] CenterMagnesium [id number] 10:38:59 Test Item Value Reference Range Interpretation Comments MAGNESIUM (test code = 2.5 mg/dL 1.7-2.4 H Sligh t hemolysis 9132959155) Lab Interpretation (test Abnormal code = 45047-6) [facility] CenterLIPID PANEL (37102)(TOTAL CHOLESTEROL, TRIGLYCERIDES, HDL)2021-10-29 09:34:32 Test Item Value Reference Range Interpretation Comments CHOL (test code = 229 mg/dL 120-200 H 2715142057) HDL (test code = 30 mg/dL >50 L 1334405727) HDLC RATIO (test code = See_Comment H [Au tomated message] 6313805836) The system [employer] generated this result transmit randy reference range : <=4.5. The refe rence range was not u sed to interpret th is result as normal/abnormal . TRIG (test code = 161 mg/dL 30-170 4027492889) LDL CHOL (test code = 167 mg/dL See_Comment H [Auto mated message] 92852-9) The system [employer] generated this result transmit randy reference range : <=160. The refe rence range was not u sed to interpret th is result as normal/abnormal . VLDL (test code = 32 mg/dL 5-60 7300198068) Lab Interpretation (test Abnormal code = 64513-4) [facility] CenterFOLATE2022-03-03 07:05:50 Test Item Value Reference Range Interpretation Comments FOLATE SER (test code = 9.5 ng/mL 3.0-20.0 Slig ht hemolysis 6029235000) Lab Interpretation (test Normal code = 33141-7) [facility] CenterVITAMIN B12, [id number] 04:59:31 Test Item Value Reference Range Interpretation Comments VIT B12 (test code = 387 pg/mL 240-930 1103953608) FILEMON (test code = FILEMON) Biotin has been reported to cause a positive bias, interpret results relative to patient's use of biotin. Lab Interpretation (test Normal code = 38891-1) [facility] CenterANTI-SSA(RO)2021-10-28 23:43:16 Test Item Value Reference Range Interpretation Comments ANTI-SSA(RO) (test code = Negative Negative 4034086811) FILEMON (test code = FILEMON) Positive - Antibody detected.Negative - No antibody detected. Lab Interpretation (test Normal code = 60567-1) [facility] CenterANTI-SSB(LA)2021-10-28 23:43:16 Test Item Value Reference Range Interpretation Comments Anti-SSB(LA) (test code = Negative Negative 7897478239) FILEMON (test code = FILEMON) Positive - Antibody detected.Negative - No antibody detected. Lab Interpretation (test Normal code = 32613-9) [facility] CenterANTI-NUCLEAR ANTIBODY [id number] 22:46:56 Test Item Value Reference Range Interpretation Comments JELANI (test code = Negative Negative 5202382048) FILEMON (test code = FILEMON) Negative - [...] separately. Lab Interpretation (test Normal code = 27565-6) [facility] CenterC-REACTIVE [id number] 16:33:39 Test Item Value Reference Range Interpretation Comments CRP (test code = 4309097171) 5.6 mg/dL <0.8 H Lab Interpretation (test code = Abnormal 08044-7) [facility] CenterPhosphorus [id number] 14:19:14 Test Item Value Reference Range Interpretation Comments PHOSPHORUS (test code = 4.6 mg/dL 2.5-5.0 Slig ht hemolysis 5492719379) Lab Interpretation (test Normal code = 01206-8) [facility] CenterCreatine Kinase (CK)2021-10-28 14:18:54 Test Item Value Reference Range Interpretation Comments CK (test code = 6596681470) 42 U/L 33-194 Lab Interpretation (test code = Normal 17462-2) [facility] Metabolic Panel (Na, K, Cl, CO2, Glucose, BUN, Creatinine, Ca)2021-10-28 14:18:03 Test Item Value Reference Range Interpretation Comments NA (test code = 131 mmol/L 135-145 L 7247400306) K (test code = 4.3 mmol/L 3.5-5.0 Slight 5755484760) hemolysis CL (test code = 99 mmol/L 98-108 1794943760) CO2 TOTAL (test code 26 mmol/L 23-31 = 6405827606) AGAP (test code = 2-16 0116661001) BUN (test code = 26 mg/dL 7-23 H Slight 9723300308) hemolysis GLUCOSE (test code = 84 mg/dL 70-110 1760527886) CREATININE (test code 1.49 mg/dL 0.50-1.04 H = 5969156576) CALCIUM (test code = 8.8 mg/dL 8.6-10.6 0524372098) eGFR (test code = mL/min/1.73m2 6564837793) FILEMON (test code = FILEMON) Association of [...] tests). Lab Interpretation Abnormal (test code = 57852-2) [facility] CenterURIC [id number] 13:06:27 Test Item Value Reference Range Interpretation Comments URIC ACID (test code = 3160710672) 6.0 mg/dL 2.9-6.0 Lab Interpretation (test code = Normal 65680-5) [facility] CenterCB with [id number] 12:11:21 Test Item Value Reference Range Interpretation Comments WBC (test code = See_Comment [Automated 9390-2) message] The sy stem which generated this [...] RDW-SD (test code = 44.5 fL 39.0-49.9 86642-1) RDW-CV (test code = 12.6 % 12.0-15.5 788-0) PLT (test code = See_Comment [Automated 777-3) message] The sy stem which generated this result transmitted reference range : 166 - 358 10*3/ ?L. The reference r chata was not used to interpret this result as normal/abnormal . MPV (test code = 10.1 fL 9.5-12.9 62226-5) NRBC/100 WBC (test See_Comment [Automat ed code = 2794623994) message] The system which generated this result transmitted reference range : 0.0 - 10.0 /100 WBCs. The refer ence range was not u sed to interpret th is result as normal/abnormal . NRBC x10^3 (test code <0.01 See_Comment [Auto mated = 1793686003) message] The s ystem which generated this result transmitted reference range : 10*3/?L. The reference range was not used to interpret this result as normal/abnormal . GRAN MAT (NEUT) % 79.9 % (test code = 770-8) IMM GRAN % (test code 0.40 % = 1023969026) LYMPH % (test code = 9.6 % 736-9) MONO % (test code = 7.8 % 5905-5) EOS % (test code = 1.9 % 713-8) BASO % (test code = 0.4 % 706-2) GRAN MAT x10^3(ANC) 6.22 10*3/uL 1.88-7.09 (test code = 8187705997) IMM GRAN x10^3 (test 0.03 10*3/uL 0.00-0.06 code = 8775657338) LYMPH x10^3 (test code 0.75 10*3/uL 1.32-3.29 L = 731-0) MONO x10^3 (test code 0.61 10*3/uL 0.33-0.92 = 742-7) EOS x10^3 (test code = 0.15 10*3/uL 0.03-0.39 711-2) BASO x10^3 (test code 0.03 10*3/uL 0.01-0.07 = 704-7) Lab Interpretation Abnormal (test code = 91933-5) [facility]. METABOLIC PANEL (03941)2021-10-28 01:46:40 Test Item Value Reference Range Interpretation Comments NA (test code = 133 mmol/L 135-145 L 4918026464) K (test code = 4.6 mmol/L 3.5-5.0 8018500371) CL (test code = 100 mmol/L 98-108 6664969383) CO2 TOTAL (test code = 25 mmol/L 23-31 6616690434) AGAP (test code = 2-16 1123239610) BUN (test code = 24 mg/dL 7-23 H 0881996970) GLUCOSE (test code = 94 mg/dL 70-110 9266159615) CREATININE (test code = 1.41 mg/dL 0.50-1.04 H 4650157758) TOTAL BILI (test code = 1.6 mg/dL 0.1-1.1 H 8638899337) CALCIUM (test code = 9.3 mg/dL 8.6-10.6 1630185308) T PROTEIN (test code = 6.7 g/dL 6.3-8.2 2238305845) ALBUMIN (test code = 4.1 g/dL 3.5-5.0 4324576708) ALK PHOS (test code = 95 U/L 34-122 7065781392) ALTv (test code = 50 U/L 5-35 H 1742-6) AST(SGOT) (test code = 34 U/L 13-40 7506896413) eGFR (test code = mL/min/1.73m2 9357536964) FILEMON (test code = FILEMON) Association of [...] tests). Lab Interpretation Abnormal (test code = 74263-3) [facility] CenterCREATINE [id number] 01:46:20 Test Item Value Reference Range Interpretation Comments CK (test code = 0192710277) 38 U/L 33-194 Lab Interpretation (test code = Normal 51392-1) [facility] CenterMAGNESIUM2022-03-02 01:20:29 Test Item Value Reference Range Interpretation Comments MAGNESIUM (test code = 6243360730) 1.7 mg/dL 1.7-2.4 Lab Interpretation (test code = Normal 71426-3) [facility] CenterSEDIMENTATION [id number] 00:47:38 Test Item Value Reference Range Interpretation Comments ESR (test code = See_Comment [Automated message] 8602114121) The system whic h generated this result transmitted ref erence range: 0 - 20 m m/HR. The reference r chata was not used to interpret this result as normal/abnor mal. Lab Interpretation (test Normal code = 72828-1) [facility] CenterACTIVATED PARTIAL THRMPLAS [id number] 00:22:32 Test Item Value Reference Range Interpretation Comments APTT Patient (test See_Comment [Automat ed code = 3173-2) message] The system which generated this result transmitted reference range : 23 - 38 Seconds . The reference range was not used to interpr et this result as normal/abnormal . FILEMON (test code = FILEMON) The [facility] patient population mean normal value for aPTT is 30 seconds. Lab Interpretation Normal (test code = 27253-2) [facility] CenterPROTHROMBIN TIME / [id number] 00:20:32 Test Item Value Reference Range Interpretation [...] tions. Lab Interpretation (test Normal code = 36389-1) [facility] WITH [id number] 00:15:55 Test Item Value Reference Range Interpretation Comments WBC (test code = See_Comment H [Automated 5890-2) message] The system which generated this result [...] RDW-SD (test code = 44.2 fL 39.0-49.9 03959-6) RDW-CV (test code = 12.5 % 12.0-15.5 788-0) PLT (test code = See_Comment H [Automated 777-3) message] The system which generated this result transmit randy reference range : 166 - 358 10*3/ ?L. The reference range was not u sed to interpret th is result as normal/abnormal . MPV (test code = 10.6 fL 9.5-12.9 38961-3) NRBC/100 WBC (test See_Comment [Automat ed code = 6182062306) message] The system which generated this result transmit randy reference range : 0.0 - 10.0 /100 WBCs. The reference range was not used to interpret this result as normal/abnormal . NRBC x10^3 (test code <0.01 See_Comment [Auto mated = 9819701397) message] The system which generated this result transmit randy reference range : 10*3/?L. The reference range was not used to interpret this result as normal/abnormal . GRAN MAT (NEUT) % 84.8 % (test code = 770-8) IMM GRAN % (test code 0.30 % = 5787025450) LYMPH % (test code = 7.8 % 736-9) MONO % (test code = 5.8 % 5905-5) EOS % (test code = 1.0 % 713-8) BASO % (test code = 0.3 % 706-2) GRAN MAT x10^3(ANC) 10.11 10*3/uL 1.88-7.09 H (test code = 9601292335) IMM GRAN x10^3 (test 0.04 10*3/uL 0.00-0.06 code = 4133365081) LYMPH x10^3 (test code 0.93 10*3/uL 1.32-3.29 L = 731-0) MONO x10^3 (test code 0.69 10*3/uL 0.33-0.92 = 742-7) EOS x10^3 (test code = 0.12 10*3/uL 0.03-0.39 711-2) BASO x10^3 (test code 0.03 10*3/uL 0.01-0.07 = 704-7) Lab Interpretation Abnormal (test code = 34301-2) [facility] CenterMAGN[facility]IUM2020-09-23 08:13:00 Test Item Value Reference Range Interpretation Comments MAGNESIUM (test code = 3218288451) 1.9 mg/dL 1.7-2.4 Lab Interpretation (test code = Normal 23708-9) [facility] Metabolic Panel (NA, K, CL, CO2, GLUCOSE, BUN, CREATININE, CA)2020-05-21 08:13:00 Test Item Value Reference Range Interpretation Comments NA (test code = 137 mmol/L 135-145 1965827959) K (test code = 4.0 mmol/L 3.5-5 3020428176) CL (test code = 104 mmol/L 98-108 8944885523) CO2 TOTAL (test code = 25 mmol/L 23-31 7288784148) AGAP (test code = 2-16 0209970958) BUN (test code = 17 mg/dL 7-23 5605360057) GLUCOSE (test code = 110 mg/dL 70-110 5724794486) CREATININE (test code 0.98 mg/dL 0.5-1.04 = 9374988378) CALCIUM (test code = 9.4 mg/dL 8.6-10.6 7926552382) eGFR Calculation mL/min/1.73m2 (Non-) (test code = 9438599311) eGFR Calculation mL/min/1.73m2 () (test code = 6384255812) FILEMON (test code = FILEMON) Association of [...] or urine or abnormalities in imaging tests). [facility]-[id number] 08:13:00 Test Item Value Reference Interpretation Comments Range D-DIMER (test code = See_Comment H [Autom ated 5683899699) message] The system which generated this result [...] diagnosis. Lab Interpretation Abnormal (test code = 46249-7) [facility] CenterCREATINE [id number] 08:12:00 Test Item Value Reference Range Interpretation Comments CK (test code = 5806451954) 80 U/L 33-194 Lab Interpretation (test code = Normal 29095-5) [facility]
[2021-11-25] MEDS ORDERED: ASPIRIN 81 MG CHEWABLE TABLET ONE (03:16)
[2021-11-25] MEDS ORDERED: FAMOTIDINE 20 MG/2 ML VIAL IV ONE (03:16)
--- NOTE | 2021-11-25 03:46 | EDPHYS ---
Physician Documentation [facility] Name: Sigrid Angel Age: 71 yrs Sex: Female : 1950 Arrival Date: 11/25/2021 Time: 02:55 Bed 24 Private MD: ED Physician Papi Charles HPI: 11/25 03:40 This 71 yrs old Female presents to ER via EMS with complaints of chest pain. [facility] 03:40 The patient or guardian reports chest pain that is located primarily in the substernal carine area. Onset: just prior to arrival. The pain does not radiate. Associated signs and symptoms: The patient has no apparent associated signs or symptoms. The chest pain is described as dull, a heaviness. Duration: The patient or guardian reports a single episode, that is still ongoing, but improving. Modifying factors: The symptoms are alleviated by nothing. the symptoms are aggravated by nothing. Severity of pain: At its worst the pain was moderate in the emergency department the pain is unchanged. The patient has experienced similar episodes in the past. Historical: - Allergies: 03:05 Codeine; bb 03:05 Sulfa (Sulfonamide Antibiotics); bb - Home Meds: 03:05 acetaminophen 325 mg Oral tab 2 tabs every 6 hours [Active]; amlodipine 10 mg tab 1 tab bb once daily [Active]; aspirin 81 mg Oral chew 1 tab once daily [Active]; atorvastatin 80 mg Oral tab 1 tab once daily [Active]; carvedilol 6.25 mg Oral tab 1 tab 2 times per day [Active]; clopidogrel 75 mg Oral tab 1 tab once daily [Active]; Combivent 18-103 mcg/actuation Inhl aero 2 puffs 4 times per day [Active]; folic acid 1 mg Oral tab 1 tab once daily [Active]; gabapentin 100 mg Oral tab 2 cap twice a day [Active]; lactulose 20 gram/30 mL Oral soln 30 mL once daily [Active]; loratadine 10 mg Oral tab 1 tab once daily [Active]; magnesium oxide 400 mg magnesium Oral tab 400 mg daily [Active]; methocarbamol 500 mg Oral tab 1 tabs every 8 hours [Active]; Senna-S 8.6-50 mg Oral tab 2 tabs once daily [Active]; tramadol 50 mg Oral tab 1 tab every 6 hours [Active]; - PMHx: 03:05 COPD; CVA; esophageal varices; Hyperlipidemia; Hypertension; uterus CA; bb - Immunization history:: unknown. - Social history:: Smoking status: Patient denies any tobacco usage or history of. - Family history:: not pertinent. ROS: 03:40 Constitutional: Negative for fever, chills, and weight loss, Eyes: Negative for injury, carine pain, redness, and discharge, ENT: Negative for injury, pain, and discharge, Neck: Negative for injury, pain, and swelling, Respiratory: Negative for shortness of breath, cough, wheezing, and pleuritic chest pain, Abdomen/GI: Negative for abdominal pain, nausea, vomiting, diarrhea, and constipation, Back: Negative for injury and pain, : Negative for injury, bleeding, discharge, and swelling, MS/Extremity: Negative for injury and deformity, Skin: Negative for injury, rash, and discoloration, Neuro: Negative for headache, weakness, numbness, tingling, and seizure, Psych: Negative for depression, anxiety, suicide ideation, homicidal ideation, and hallucinations, Allergy/Immunology: Negative for hives, rash, and allergies, Endocrine: Negative for neck swelling, polydipsia, polyuria, polyphagia, and marked weight changes, Hematologic/Lymphatic: Negative for swollen nodes, abnormal bleeding, and unusual bruising. 03:40 Cardiovascular: Positive for chest pain, of the chest. Exam: 03:40 Constitutional: This is a well developed, well nourished patient who is awake, alert, carine and in no acute distress. Head/Face: Normocephalic, atraumatic. Eyes: Pupils equal round and reactive to light, extra-ocular motions intact. Lids and lashes normal. Conjunctiva and sclera are non-icteric and not injected. Cornea within normal limits. Periorbital areas with no swelling, redness, or edema. ENT: Nares patent. No nasal discharge, no septal abnormalities noted. Tympanic membranes are normal and external auditory canals are clear. Oropharynx with no redness, swelling, or masses, exudates, or evidence of obstruction, uvula midline. Mucous membranes moist. Neck: Trachea midline, no thyromegaly or masses palpated, and no cervical lymphadenopathy. Supple, full range of motion without nuchal rigidity, or vertebral point tenderness. No Meningismus. Chest/axilla: Normal chest wall appearance and motion. Nontender with no deformity. No lesions are appreciated. Cardiovascular: Regular rate and rhythm with a normal S1 and S2. No gallops, murmurs, or rubs. Normal PMI, no JVD. No pulse deficits. Respiratory: Lungs have equal breath sounds bilaterally, clear to auscultation and percussion. No rales, rhonchi or wheezes noted. No increased work of breathing, no retractions or nasal flaring. Abdomen/GI: Soft, non-tender, with normal bowel sounds. No distension or tympany. No guarding or rebound. No evidence of tenderness throughout. Back: No spinal tenderness. No costovertebral tenderness. Full range of motion. Skin: Warm, dry with normal turgor. Normal color with no rashes, no lesions, and no evidence of cellulitis. MS/ Extremity: Pulses equal, no cyanosis. Neurovascular intact. Full, normal range of motion. Neuro: Awake and alert, GCS 15, oriented to person, place, time, and situation. Cranial nerves II-XII grossly intact. Motor strength 5/5 in all extremities. Sensory grossly intact. Cerebellar exam normal. Normal gait. Psych: Awake, alert, with orientation to person, place and time. Behavior, mood, and affect are within normal limits. 03:48 ECG was reviewed by the Attending Physician. carine Vital Signs: 03:02 BP 132 / 64; Pulse 65; Resp 20 S; Temp 97.9(O); Pulse Ox 97% on R/A; Weight 77.11 kg bb (R); 03:42 BP 160 / 84; Pulse 63; Resp 18 S; Pulse Ox 95% on R/A; bb 11/26 19:15 BP 169 / 84; Pulse 81 MON; Resp 20 S; Temp 97.9(O); Pulse Ox 96% on R/A; Pain 0/10; ag7 NIH Stroke Scale Scores: 11/25 03:55 NIHSS Score: 0 carine MDM: 02:55 Patient medically screened. carine 03:42 Differential diagnosis: abnormal EKG, acute myocardial infarction, acute pericarditis, carine anxiety, chest wall pain, congestive heart failure costochondritis, esophagitis, hiatal hernia, pancreatitis, pericarditis, stable angina, unstable angina. HEART Score: History: Slightly Suspicious (0), ECG: Normal (0), Age: > or = 65 years (2), Risk Factors: > or = 3 Risk factors for atherosclerotic disease (2), [Hypercholesterolemia] [Hypertension] [+ Family HX] [Obesity] Troponin: < or = 1 x Normal Limit (0). The patient was given aspirin in the Emergency Department. The patient's deep vein thrombosis risk score was calculated as follows: Total Score: 0. This patient was found to be at low risk for a deep vein thrombosis by using the Well's assessment criteria. The patient's pulmonary embolism risk score was calculated as follows: Total Score: 0-2 points. This patient was found to be at low risk for a pulmonary embolism by using the Well's assessment criteria. YASMIN Risk Score: 1 - patient's age is greater or equal to 65 years, 1 - Three or more CAD risk factors, 1- Known CAD, 1 - ASA use in past 7 days, TOTAL SCORE = 4. Data reviewed: vital signs, nurses notes, lab test result(s), EKG, radiologic studies, CT scan, plain films. Data interpreted: compliance monitor: rate is 65 beats/min, rhythm is regular, Pulse oximetry: on room air is 95 %. Test interpretation: by ED physician or midlevel provider: ECG, plain radiologic studies. Counseling: I had a detailed discussion with the patient and/or guardian regarding: the historical points, exam findings, and any diagnostic results supporting the discharge/admit diagnosis, lab results, radiology results, the need for further work-up and treatment in the hospital. 11/25 02:59 Order name: Basic Metabolic Panel [facility] 11/25 02:59 Order name: CBC with Diff; Complete Time: 03:52 [facility] 11/25 02:59 Order name: LFT's [facility] 11/25 02:59 Order name: Magnesium [facility] 11/25 02:59 Order name: NT PRO-BNP [facility] 11/25 02:59 Order name: PT-INR; Complete Time: 03:52 [facility] 11/25 02:59 Order name: Troponin HS [facility] 11/25 02:59 Order name: Lipase [facility] 11/25 02:59 Order name: SARS-COV-2 RT PCR (Document "Date of Onset" if Symptomatic) [facility] 11/25 09:31 Order name: Urine Dipstick-Ancillary [facility] 11/25 10:24 Order name: Troponin High Sensitivity [facility] 11/25 10:59 Order name: Urinalysis [facility] 11/25 14:21 Order name: Troponin High Sensitivity [facility] 11/26 03:39 Order name: CBC with Automated Diff [facility] 11/25 02:59 Order name: XRAY Chest (1 view) [facility] 11/25 02:59 Order name: EKG; Complete Time: 03:01 [facility] 11/25 02:59 Order name: Cardiac monitoring; Complete Time: 03:13 [facility] 11/25 02:59 Order name: EKG - Nurse/Tech; Complete Time: 03:13 [facility] 11/25 02:59 Order name: IV Saline Lock; Complete Time: 03:42 [facility] 11/25 02:59 Order name: Labs collected and sent; Complete Time: 03:42 [facility] 11/25 02:59 Order name: O2 Per Protocol; Complete Time: 03:13 [facility] 11/25 02:59 Order name: O2 Sat Monitoring; Complete Time: 03:13 [facility] 11/25 02:59 Order name: CT Head Brain wo Cont [facility] 11/26 04:02 Order name: Comprehensive Metabolic Panel [facility] EC:48 Rate is 63 beats/min. Rhythm is regular. QRS [place] is Normal. [place] interval is normal. QRS carine interval is normal. QT interval is normal. No Q waves. T waves are Normal. No ST changes noted. Clinical impression: Normal ECG and No evidence of ischemia. Interpreted by me. Reviewed by me. Administered Medications: 03:41 Drug: Aspirin Chewable Tablet 324 mg Route: PO; bb 04:08 Follow up: Response: No adverse reaction bb 03:42 Drug: Pepcid (famotidine) 20 mg Route: IVP; Site: right wrist; bb 04:08 Follow up: Response: No adverse reaction bb 04:07 Drug: Lovenox (enoxaparin) 1 mg/kg Route: Sub-Q; Site: abdomen; bb 04:08 Drug: fentaNYL (PF) 25 mcg Route: IVP; Site: right wrist; bb 04:08 Drug: Zofran (Ondansetron) 4 mg Route: IVP; Site: right wrist; bb Disposition Summary: 11/25/21 03:45 Hospitalization Ordered Hospitalization Status: Observation carine Provider: Ernesto Jimenez cha Condition: Fair carine Problem: new carine Symptoms: have improved carine Bed/Room Type: Standard craine [facility]59[facility] em1 Room Assignment: 230(11/26/21 17:59) em1 Diagnosis - Chest pain, unspecified carine - Essential (primary) hypertension carine Forms: - Medication Reconciliation Form carine - SBAR form carine NIH Stroke Scale - NIH Stroke Score Date: 11/25/2021 Time: 03:55 Total Score = 0 1a. Level of Consciousness (LOC) - 0(Alert) 1b. Level of Consciousness (LOC) (Month \\T\\ Age) - 0(Both) 1c. LOC Commands (Open \\T\\ Closes Eyes/[employer]) - 0(Both) 2. Best Gaze (Lateral Gaze Paresis) - 0(Normal) 3. Visual Field Loss - 0(No visual loss) 4. Facial Palsy - 0(Normal) 5a. Left Arm: Motor (10-second hold) - 0(No drift) 5b. Right Arm: Motor (10-second hold) - 0(No drift) 6a. Left Leg: Motor (5-second hold - always test supine) - 0(No drift) 6b. Right Leg: Motor (5-second hold - always test supine) - 0(No drift) 7. Limb Ataxia (finger/nose \\T\\ heel/taylor - test with eyes open) - 0(Absent) 8. Sensory Loss (pinprick arms/legs/face) - 0(Normal) 9. Best Language: Aphasia (description/naming/reading) - 0(No aphasia) 10. Dysarthria (speech clarity - read or repeat words) - 0(Normal) 11. Extinction and Inattention (visual/tactile/auditory/spatial/personal) - 0(No abnormality) Initials: carine Signatures: Dispatcher [employer] [facility] Papi Charles MD MD cha Ballard, Brenda, RN Hi Watters em1 Ciro Shine, NENO-C TIPPLE OILER-Cla1 Willow Monteiro RN RN eb1 Corrections: (The following items were deleted from the chart) 03:59 03:45 Telemetry/MedSurg (observation) carine eb1 03:59 03:45 carine eb1 05:39 03:59 [facility] ER HOLD eb1 eb1 05:39 03:59 ERHOLD- eb1 eb1 05:53 05:39 401 eb1 eb1 06:25 05:39 Telemetry/MedSurg (observation) eb1 eb1 06:25 05:53 402 eb1 eb1 11/26 17:59 11/25 06:25 [facility] ER HOLD eb1 em1 11/26 17:59 11/25 06:25 ERHOLD- eb1 em1
--- NOTE | 2021-11-25 03:46 | ER ---
Nurse's Notes [facility] Name: Sigrid Angel Age: 71 yrs Sex: Female : 1950 Arrival Date: 11/25/2021 Time: 02:55 Bed 24 Private MD: Diagnosis: Chest pain, unspecified;Essential (primary) hypertension Presentation: 11/25 03:02 Chief complaint: EMS states: they were toned out for report of pt c/o possible stroke bb pt had a stroke a couple of weeks ago but has no new neuro deficits. Coronavirus screen: At this time, the client does not indicate any symptoms associated with coronavirus-19. Ebola Screen: No symptoms or risks identified at this time. Initial Sepsis Screen: Does the patient meet any 2 criteria? No. Patient's initial sepsis screen is negative. Does the patient have a suspected source of infection? No. Patient's initial sepsis screen is negative. Risk Assessment: Do you want to hurt yourself or someone else? Patient reports no desire to harm self or others. Onset of symptoms was November 25, 2021. 03:02 Method Of Arrival: EMS: [facility] bb 03:02 Acuity: JAYE 3 bb Historical: - Allergies: 03:05 Codeine; bb 03:05 Sulfa (Sulfonamide Antibiotics); bb - Home Meds: 03:05 acetaminophen 325 mg Oral tab 2 tabs every 6 hours [Active]; amlodipine 10 mg tab 1 tab bb once daily [Active]; aspirin 81 mg Oral chew 1 tab once daily [Active]; atorvastatin 80 mg Oral tab 1 tab once daily [Active]; carvedilol 6.25 mg Oral tab 1 tab 2 times per day [Active]; clopidogrel 75 mg Oral tab 1 tab once daily [Active]; Combivent 18-103 mcg/actuation Inhl aero 2 puffs 4 times per day [Active]; folic acid 1 mg Oral tab 1 tab once daily [Active]; gabapentin 100 mg Oral tab 2 cap twice a day [Active]; lactulose 20 gram/30 mL Oral soln 30 mL once daily [Active]; loratadine 10 mg Oral tab 1 tab once daily [Active]; magnesium oxide 400 mg magnesium Oral tab 400 mg daily [Active]; methocarbamol 500 mg Oral tab 1 tabs every 8 hours [Active]; Senna-S 8.6-50 mg Oral tab 2 tabs once daily [Active]; tramadol 50 mg Oral tab 1 tab every 6 hours [Active]; - PMHx: 03:05 COPD; CVA; esophageal varices; Hyperlipidemia; Hypertension; uterus CA; bb - Immunization history:: unknown. - Social history:: Smoking status: Patient denies any tobacco usage or history of. - Family history:: not pertinent. Screenin:39 Abuse screen: Denies threats or abuse. Nutritional screening: No deficits noted. bb Tuberculosis screening: No symptoms or risk factors identified. Fall Risk None identified. Assessment: 03:39 General: Appears in no apparent distress. Behavior is calm, cooperative. Pain: bb Complains of pain in chest Pain currently is 6 out of 10 on a pain scale. Neuro: Level of Consciousness is awake, alert, obeys commands, Oriented to person, place, situation. Cardiovascular: Capillary refill < 3 seconds Patient's skin is warm and dry. Respiratory: Respiratory effort is even, unlabored, Respiratory pattern is regular. GI: No signs and/or symptoms were reported involving the gastrointestinal system. Derm: Skin is dry, Skin is pale, Skin temperature is warm. Musculoskeletal: Circulation, motion, and sensation intact. 11/26 19:16 Reassessment: Patient and/or family updated on plan of care and expected duration. Pain ag7 level reassessed. Patient is alert, oriented x 3, equal unlabored respirations, skin warm/dry/pink. The patient is admitted per MD pending transfer Patient denies pain at this time. Vital Signs: 11/25 03:02 BP 132 / 64; Pulse 65; Resp 20 S; Temp 97.9(O); Pulse Ox 97% on R/A; Weight 77.11 kg bb (R); 03:42 BP 160 / 84; Pulse 63; Resp 18 S; Pulse Ox 95% on R/A; bb 11/26 19:15 BP 169 / 84; Pulse 81 MON; Resp 20 S; Temp 97.9(O); Pulse Ox 96% on R/A; Pain 0/10; ag7 NIH Stroke Scale Scores: 11/25 03:55 NIHSS Score: 0 [facility] ED Course: 02:55 Patient arrived in ED. [facility] 02:55 Papi Charles MD is Attending Physician. [facility] 03:05 Triage completed. bb 03:05 Arm band placed on Patient placed in an exam room, on a stretcher, on security monitor, bb on pulse oximetry. 03:17 XRAY Chest (1 view) In Process Unspecified. EDMS 03:26 CT Head Brain wo Cont In Process Unspecified. EDMS 03:39 Patient has correct armband on for positive identification. Bed in low position. Call bb light in reach. Side rails up X2. air sampling and monitoring on. Pulse ox on. NIBP on. Warm blanket given. 03:39 Initial lab(s) drawn, by me, sent to lab. COVID swab sent to lab. Inserted saline lock: bb 20 gauge in right wrist, using aseptic technique. Blood collected. 03:42 SARS-COV-2 RT PCR (Document "Date of Onset" if Symptomatic) Sent. bb 03:42 No provider procedures requiring assistance completed. bb 03:45 Ernesto Jimenez MD is Hospitalizing Provider. [facility] 09:33 Urine collected: clean catch specimen, clear. 09:34 Changed diaper. 11/26 19:31 Cira Peters, PATI is Primary Nurse. [facility] [place] Administered Medications: 11/25 03:41 Drug: Aspirin Chewable Tablet 324 mg Route: PO; bb 04:08 Follow up: Response: No adverse reaction bb 03:42 Drug: Pepcid (famotidine) 20 mg Route: IVP; Site: right wrist; bb 04:08 Follow up: Response: No adverse reaction bb 04:07 Drug: Lovenox (enoxaparin) 1 mg/kg Route: Sub-Q; Site: abdomen; bb 04:08 Drug: fentaNYL (PF) 25 mcg Route: IVP; Site: right wrist; bb 04:08 Drug: Zofran (Ondansetron) 4 mg Route: IVP; Site: right wrist; bb Outcome: 03:45 Decision to Hospitalize by Provider. [facility] 11/26 19:20 Admitted to Med/surg Other This nurse attempt to call report to the nurse accepting ag7 this patient RM 230. Amita state, "she will call back to ext. [phone] 19:57 Admitted to Med/surg accompanied by nurse, via stretcher, with chart, Report called to agCandis Daugherty RN Rm 230 20:17 Patient left the ED. tw5 NIH Stroke Scale - NIH Stroke Score Date: 11/25/2021 Time: 03:55 Total Score = 0 1a. Level of Consciousness (LOC) - 0(Alert) 1b. Level of Consciousness (LOC) (Month \\T\\ Age) - 0(Both) 1c. LOC Commands (Open \\T\\ Closes Eyes/Senior [employer]a Analyst) - 0(Both) 2. Best Gaze (Lateral Gaze Paresis) - 0(Normal) 3. Visual Field Loss - 0(No visual loss) 4. Facial Palsy - 0(Normal) 5a. Left Arm: Motor (10-second hold) - 0(No drift) 5b. Right Arm: Motor (10-second hold) - 0(No drift) 6a. Left Leg: Motor (5-second hold - always test supine) - 0(No drift) 6b. Right Leg: Motor (5-second hold - always test supine) - 0(No drift) 7. Limb Ataxia (finger/nose \\T\\ heel/taylor - test with eyes open) - 0(Absent) 8. Sensory Loss (pinprick arms/legs/face) - 0(Normal) 9. Best Language: Aphasia (description/naming/reading) - 0(No aphasia) 10. Dysarthria (speech clarity - read or repeat words) - 0(Normal) 11. Extinction and Inattention (visual/tactile/auditory/spatial/personal) - 0(No abnormality) Initials: carine Signatures: Dispatcher [employer] Papi Lantigua MD MD cha Ballard, Brenda, RN Maxine Fernandez Tiffany tw5 Cira Peters RN RN ag7
[2021-11-25 03:48] LABS: Lymphocytes % 21.2 % (15.3-44.8); MPV 7.3 fL (7.6-11.3); RBC Red Blood Cell Count 2.99 M/uL (3.86-4.86)
[2021-11-25 03:50] LABS: Protime INR 1.11
[2021-11-25] MEDS ORDERED: ONDANSETRON 4 MG/2 ML VIAL ONE (03:58)
[2021-11-25] MEDS ORDERED: FENTANYL CITR 100 MCG/2 ML ONE (03:58)
[2021-11-25] MEDS ORDERED: ENOXAPARIN 80 MG/0.8 ML SQ ONE (03:59)
[2021-11-25 04:07] LABS: Albumin 2.5 g/dL (3.4-5.0); Bilirubin Direct 0.2 mg/dL (0-0.2); Bilirubin Total 0.8 mg/dL (0.2-1.0); Magnesium 2.2 mg/dL (1.8-2.4); Potassium 3.7 mmol/L (3.5-5.1); Protein, Total 6.4 g/dL (6.4-8.2); Troponin High Sensitivity 4.3 pg/mL (<58.9)
--- NOTE | 2021-11-25 04:27 | P.HP ---
Certification for Inpatient Patient admitted to: Observation With expected LOS: <2 Midnights Patient will require the following post-hospital care: None Practitioner: I am a practitioner with admitting privileges, knowledge of patient current condition, hospital course, and medical plan of care. Services: Services provided to patient in accordance with Admission requirements found in Title 42 Section 412.3 of the Code of Federal Regulations Patient History Date of Service: 11/25/21 Reason for admission: Chest pain History of Present Illness: 71-year-old female with history of CVA, COPD, hyperlipidemia, GERD, hypertension presents emergency department for chest pain. Patient is alf resident began complaining of right-sided chest pain around 0200 this morning. Patient was evaluated here in the emergency department her initial troponin negative EKG without acute changes chest x-ray unremarkable, pain is described as right-sided, nonradiating described as dull no other associated symptoms. ED provider wishes to admit for ACS rule out. Allergies codeine Allergy (Unverified 05/27/17 16:26) Unknown Sulfa (Sulfonamide Antibiotics) Allergy (Unverified 04/09/17 17:37) Unknown - Past Medical/Surgical History -: CVA -: COPD -: Hyperlipidemia -: Hypertension Past Surgical History: Unable to obtain Psychosocial/ Personal History: Patient currently resident of [facility] - Family History Family History: Reviewed- Non-Contributory - Social History Smoking Status: Never smoker Alcohol use: No CD- Drugs: No Caffeine use: Yes Place of Residence: Home Review of Systems 10-point ROS is otherwise unremarkable Cardiovascular: Chest Pain Physical Examination - Physical Exam General: Alert, In no apparent distress, Oriented x2 HEENT: Atraumatic, PERRLA, Mucous membr. moist/pink, EOMI, Sclerae nonicteric Neck: Supple, 2+ carotid pulse no bruit, No LAD, Without JVD or thyroid abnormality Respiratory: Clear to auscultation bilaterally, Normal air movement Cardiovascular: Regular rate/rhythm, Normal S1 S2 Gastrointestinal: Normal bowel sounds, No tenderness Musculoskeletal: No tenderness Integumentary: No rashes Neurological: Normal strength at 5/5 x4 extr, Normal tone, Normal affect, Abnormal speech (Mild slurred speech from previous CVA) - Studies Laboratory Data (last 24 hrs) 11/25/21 03:30: PT 12.2, INR 1.11 11/25/21 03:30: WBC 4.9 D, Hgb 9.4 L, Hct 28.0 L, Plt Count 326 11/25/21 03:30: Sodium 140, Potassium 3.7, BUN 5 L, Creatinine 0.91, Glucose 110 H, Magnesium 2.2, Total Bilirubin 0.8, AST 7 L, ALT 16, Alkaline Phosphatase 78, Lipase 96 Assessment and Plan - Plan Assessment: Chest pain rule out ACS History of CVA Hypertension Hyperlipidemia Plan: Chest pain rule out ACS: Trend troponin, monitor on telemetry, cardiology consult in place. Continue aspirin/Plavix which patient is taking already. History of CVA: Stable continue home medications Hypertension: Continue home meds Hyperlipidemia: Continue home meds DVT PPX: Lovenox Code status: Full Discharge Plan: Home Plan to discharge in: 24 Hours - Advance Directives Does patient have a Living Will: No Does patient have a Durable POA for Healthcare: No - Code Status/Comfort Care Code Status Assessed: Yes (Full code) Critical Care: No Time Spent Managing Pts Care (In Minutes): 55
[2021-11-25] MEDS ORDERED: TRAMADOL HCL 50 MG TAB PO PRN (05:07)
[2021-11-25] MEDS ORDERED: ONDANSETRON 4 MG/2 ML VIAL IV PRN (05:07)
--- NOTE | 2021-11-25 07:53 | EKG ---
Test Date: 2021-11-25 Test Time: 03:11:40 Boom Worker: GARTH MEASUREMENT RESULTS: Intervals: Rate: 63 MI: 184 QRSD: 84 QT: 410 QTc: 419 [place]: P: 54 MI: 184 QRS: 46 T: 65 INTERPRETIVE STATEMENTS: Normal sinus rhythm Normal ECG Compared to ECG 11/20/2021 15:55:09 No significant changes Electronically Signed On 11-25-21 07:52:25 CDT by Kamari Don
[2021-11-25] MEDS ORDERED: INFLUENZA VACCINE (for 6+ mo) 0.5 ML DOSE IMVAC ONE (08:00)
[2021-11-25] MEDS ORDERED: PNEUMOCOCCAL VACCINE 0.5 ML IMVAC ONE (08:00)
[2021-11-25] MEDS: CLOPIDOGREL 75 MG TABLET PO SCH (09:00)
[2021-11-25] MEDS: ASPIRIN EC 81 MG TAB PO SCH (09:00)
[2021-11-25] MEDS: ENOXAPARIN 40 MG/0.4 ML SQ SCH (09:00)
[2021-11-25 09:31] LABS: Urine Blood Negative (Negative); Urine Glucose Negative (Negative); Urine Protein Negative (Negative); Urine Specific Gravity 1.025 (1.005-1.030)
[2021-11-25] MEDS ORDERED: CLOPIDOGREL 75 MG TABLET ONE (09:44)
[2021-11-25] MEDS ORDERED: ASPIRIN EC 81 MG TAB PO ONE (09:44)
[2021-11-25] MEDS ORDERED: ENOXAPARIN 40 MG/0.4 ML SQ ONE (09:45)
[2021-11-25 10:59] LABS: Urine Appearance Clear (Clear); Urine Bilirubin Negative (Negative); Urine Blood Negative (Negative); Urine Color Yellow (Yellow); Urine Glucose Negative (Negative); Urine Microscopic Reflex NO UMIC; Urine Protein Negative (Negative); Urine Specific Gravity 1.015 (1.005-1.030); Urine Urobilinogen 0.2 mg/dL (0.2-1.0)
--- NOTE | 2021-11-25 13:38 | RAD REPORT ---
EXAM DESCRIPTION: RAD - Chest Single View - 11/25/2021 3:16 am CLINICAL HISTORY: 71 years Female, Cough; chest pain COMPARISON: None. TECHNIQUE: Single portable x-ray view of the chest performed on 11/25/2021 at 3:12 AM FINDINGS: The lungs are well-expanded and are grossly clear. There may be minimal fibrosis or atelec tasis in the left lung base. No focal airspace consolidation is identified. There is no evidence of a pneumothorax. The cardiac silhouette is mildly prominent and may be partially accentuated by the portable technique . The mediastinal contours are normal. No acute osseous abnormality is identified. No acute soft tissue abnormalities are seen. Lines and tubes: None. Free air: None IMPRESSION: No evidence of acute intrathoracic disease. There may be minimal fibrosis or atelectasis in the left lung base. Electronically signed by: Ignacia Fuentes DO 11/25/2021 3:44 AM CDT Due to temporary technical issues with the PACS/Fluency reporting system, reports are being signed by the in house radiologists without review as a courtesy to insure prompt reporting. The interpreting radiologist is fully responsible for the content of the report.
--- NOTE | 2021-11-25 13:44 | RAD REPORT ---
EXAM DESCRIPTION: CT - Head Brain Wo Cont - 11/25/2021 6:42 am CLINICAL HISTORY: 71 years, Female, TIA COMPARISON: 11/20/2021. FINDINGS: Multiple transaxial tomograms of the brain were obtained from the base of the skull to the vertex without contrast. 2-D multiplanar reformats and the coronal and sagittal plane were performed and reviewed. This exam was performed according to our departmental dose-optimization protocol, which includes auto mated exposure control, adjustment of the mA and/or kV according to patient size and/or use of iterat guanako reconstruction technique. Brain parenchyma demonstrate mild prominence of the sulci and gyri are corresponding to moderate brai n atrophy. There is moderate periventricular white matter changes of microvascular ischemia. There is no midline shift and/or mass effect. There is no evidence for acute intracranial hemorrhage. Later al ventricles and cisterns displace normal appearance. No intra or extra axial fluid collections we re seen. The calvarium is intact with no evidence for fracture. The visualized portions of the parana tammy sinuses and orbits demonstrate to be clear. IMPRESSION: BRAIN ATROPHY WITH PERIVENTRICULAR MATTER CHANGES OF MICROVASCULAR ISCHEMIA. NO ACUTE INTRACRANIAL HEMORRHAGE. NO SIGNIFICANT INTERVAL CHANGE. Electronically signed by: Thad Vergara MD 11/25/2021 3:46 AM CDT Due to temporary technical issues with the PACS/Fluency reporting system, reports are being signed by the in house radiologists without review as a courtesy to insure prompt reporting. The interpreting radiologist is fully responsible for the content of the report.
--- NOTE | 2021-11-25 14:06 | ECHO ---
HEIGHT: 5 ft 4 in WEIGHT: 147 lb 0 oz DATE OF STUDY: 11/25/[address]: Kamari Don MD 2-DIMENSIONAL: YES M.MODE: YES DOPPLER: YES COLOR FLOW: YES TDS: PARASTERNALS PORTABLE: DEFINITY: BUBBLE STUDY: DIAGNOSIS: CHEST PAIN CARDIAC HISTORY: CATHERIZATION: SURGERY: PROSTHETIC VALVE: PACEMAKER: MEASUREMENTS (cm) DIASTOLIC (NORMALS) SYSTOLIC (NORMALS) IVSd 1.2 (0.6-1.2) LA Diam (1.9-4.0) LVEF 52% LVIDd 4.2 (3.5-5.7) LVIDs 3.1 (2.0-3.5) %FS 26% LVPWd 1.4 (0.6-1.2) Ao Diam 2.7 (2.0-3.7) 2 DIMENSIONAL ASSESSMENT: RIGHT ATRIUM: NORMAL LEFT ATRIUM: NORMAL RIGHT VENTRICLE: NORMAL LEFT VENTRICLE: LEFT VENTRICULAR HYPERTROPHY TRICUSPID VALVE: NORMAL MITRAL VALVE: NORMAL PULMONIC VALVE: NORMAL AORTIC VALVE: NORMAL PERICARDIAL EFFUSION: NONE AORTIC ROOT: NORMAL LEFT VENTRICULAR WALL MOTION: NORMAL DOPPLER/COLOR FLOW: MILD TRICUSPID REGURGITATION COMMENTS: TECHNICALLY DIFFICULT STUDY. MILD TRICUPSID REGURGITATION. NORMAL RIGHT VENTRICULAR SYSTOLIC PRESSURE. LEFT VENTRICULAR HYPERTROPHY. NORMAL EJECTION FRACTION. NO EFFUSION. NO WALL MOTION ABNORMALITY. TECHNOLOGIST: JOON MALONEY
[2021-11-25] MEDS ORDERED: ATORVASTATIN 20 MG TAB ONE (20:12)
[2021-11-25] MEDS: ATORVASTATIN 80 MG TAB PO SCH (20:50)
[2021-11-26 03:38] LABS: Absolute Lymphocytes (CBC) 0.9 K/uL (0.7-4.9); Hematocrit 29.3 % (36.0-45.0); Lymphocytes % 18.7 % (15.3-44.8); MPV 7.3 fL (7.6-11.3); RBC Red Blood Cell Count 3.14 M/uL (3.86-4.86)
[2021-11-26 04:02] LABS: Albumin 2.5 g/dL (3.4-5.0); Bilirubin Total 0.9 mg/dL (0.2-1.0); Potassium 3.6 mmol/L (3.5-5.1); Protein, Total 6.5 g/dL (6.4-8.2)
[2021-11-26] MEDS ORDERED: ASPIRIN EC 81 MG TAB PO ONE (07:53)
[2021-11-26] MEDS ORDERED: ENOXAPARIN 40 MG/0.4 ML SQ ONE (07:53)
[2021-11-26] MEDS ORDERED: CLOPIDOGREL 75 MG TABLET ONE (07:53)
[2021-11-26] MEDS: ASPIRIN EC 81 MG TAB PO SCH (08:06)
[2021-11-26] MEDS: ENOXAPARIN 40 MG/0.4 ML SQ SCH (08:06)
[2021-11-26] MEDS: CLOPIDOGREL 75 MG TABLET PO SCH (08:06)
--- NOTE | 2021-11-26 09:33 | P.DS ---
Admission Date: 11/25/21 Discharge Date: 11/26/21 Disposition: ROUTINE DISCHARGE Discharge Condition: GOOD Reason for Admission: Chest pain Consultations: Cardiology Brief History of Present Illness: 71-year-old female with history of CVA, COPD, hyperlipidemia, GERD, hypertension presents emergency department for chest pain. Patient is [place] began complaining of right-sided chest pain around 0200 this morning. Patient was evaluated here in the emergency department her initial troponin negative EKG without acute changes chest x-ray unremarkable, pain is described as right-sided, nonradiating described as dull no other associated symptoms. ED provider wishes to admit for ACS rule out. Hospital Course: She had troponin trended with no significant issues. She also had evaluation of chest pain with echocardiogram that revaled mild tricuspid regurgitation without any evidence of significant cardiac pathology except for mild left ventricular hypertrophy. She was evaluated by cardiology and she was deemed stable for discharge to follow-up with primary care doctor and specialist as outpatient. She had no repeat episode of chest pain while admitted. Vital Signs/Physical Exam: Temp Pulse Resp BP Pulse Ox 97.8 F 72 18 139/72 95 11/26/21 04:00 11/26/21 04:00 11/26/21 04:00 11/26/21 04:00 11/26/21 04:00 Laboratory Data at Discharge: WBC 4.7 K/uL (4.3-10.9) 11/26/21 03:00 Hgb 10.1 g/dL (12.0-15.0) L 11/26/21 03:00 Hct 29.3 % (36.0-45.0) L 11/26/21 03:00 Plt Count 378 K/uL (152-406) 11/26/21 03:00 PT 12.2 SECONDS (9.5-12.5) 11/25/21 03:30 INR 1.11 11/25/21 03:30 Sodium 140 mmol/L (136-145) 11/26/21 03:00 Potassium 3.6 mmol/L (3.5-5.1) 11/26/21 03:00 BUN 5 mg/dL (7-18) L 11/26/21 03:00 Creatinine 0.91 mg/dL (0.55-1.3) 11/26/21 03:00 Glucose 107 mg/dL (74-106) H 11/26/21 03:00 Magnesium 2.2 mg/dL (1.8-2.4) 11/25/21 03:30 Total Bilirubin 0.9 mg/dL (0.2-1.0) 11/26/21 03:00 AST 8 U/L (15-37) L 11/26/21 03:00 ALT 17 U/L (12-78) 11/26/21 03:00 Alkaline Phosphatase 78 U/L (45-117) 11/26/21 03:00 Lipase 96 U/L (73-393) 11/25/21 03:30 Home Medications: Acetaminophen 650 mg PO Q6HP PRN 11/25/21 Amlodipine Besylate [Norvasc] 10 mg PO DAILY 11/25/21 Aspirin 81 mg PO DAILY 11/25/21 Atorvastatin Calcium [Lipitor] 80 mg PO BEDTIME 11/25/21 Clopidogrel Bisulfate [Plavix] 75 mg PO DAILY 11/25/21 Folic Acid 1 mg PO DAILY 11/25/21 Ipratropium/Albuterol Sulfate [Combivent Respimat 20-100 Mcg] 2 puff IH QID 11/25/21 Lactulose 20 gm PO DAILY 11/25/21 Loratadine 10 mg PO DAILY 11/25/21 Magnesium Oxide [Mag 0X Tab] 400 mg PO DAILY 11/25/21 Sennosides/Docusate Sodium [Senna Plus 8.6-50 mg Softgel] 2 cap PO DAILY 11/25/21 Tramadol HCl [Ultram] 50 mg PO Q6HP PRN 11/25/21 carvediloL [Carvedilol] 6.25 mg PO BID 11/25/21 methocarbamoL [Methocarbamol] 500 mg PO Q8HP PRN 11/25/21 Followup: Unknown,U [Primary Care Provider] -
--- NOTE | 2021-11-26 13:35 | CON ---
Date of Consultation: 11/25/2021 Reason For Consultation: Chest pain. History Of Present Illness: Ms. Angel is a 71-year-old woman who has a history of COPD, CVA, esop hageal varices, hypertension, dyslipidemia, and uterine cancer, follows up with Dr. Glez on a regular basis, comes in with mild anemia with the symptoms really mostly of the left arm pain and weakness. No actual chest pain. Denied any nausea, vomiting, diaphoresis, PND, orthopnea, pedal edema, palpita tions, or syncope. Her symptoms have improved by the time I saw her. Past Medical History: As stated above. Allergies: SHE IS ALLERGIC TO CODEINE AND SULFA. Review of Systems: Negative. Social History: Negative. Family History: Negative. Medications: Include aspirin, Norvasc, Plavix, Lipitor, inhalers, and Coreg. Physical Examination: General: She is very pleasant, no acute distress. Vital Signs: Stable, afebrile. Sinus rhythm. HEENT: Negative. Neck: Supple with no bruit. Chest: Clear to auscultation and percussion. Cardiac: Revealed a regular rhythm and rate. No murmurs, gallops, or rubs. Abdomen: Benign. Extremities: Revealed no clubbing, cyanosis, or edema. Diagnostic Data: Fairly unremarkable. Impression And Plan: I think Ms. Angel's symptoms are more likely related to either cervical spon dylosis or possible transient ischemic attack. Neurology consultation may be reasonable. She is alr milady on aspirin and Plavix, Lipitor, beta-blockers, and Norvasc. I think we need to continue those r egimen. Echocardiogram is pending. It may be worth doing an outpatient Lexiscan on her. Her chroni c obstructive pulmonary disease, cerebrovascular accident, esophageal varices, hypertension, and dysl ipidemia are well controlled. I will discuss the case further with Dr. Jimenez. I do not think we are dealing with any acute coronary syndrome. NB/MODL Voice ID: [id number] Report ID: [id number]
[2021-11-26] MEDS ORDERED: NA CHLORIDE 0.9% 50 ML ONE (20:16)
[2021-11-26] MEDS ORDERED: CEFTRIAXONE 1000 MG/VIAL ONE (20:16)
[2021-11-26] MEDS ORDERED: LACTULOSE 20 GM/30 ML UCUP ONE (20:16)
[2021-11-26] MEDS: ATORVASTATIN 80 MG TAB PO SCH (20:41)
[2021-11-26 21:21] VITALS: BMI 25.3
[2021-11-27] MEDS ORDERED: FAMOTIDINE 20 MG/2 ML VIAL IV ONE (06:44)
[2021-11-27] MEDS: CLOPIDOGREL 75 MG TABLET PO SCH (07:57)
[2021-11-27] MEDS: ENOXAPARIN 40 MG/0.4 ML SQ SCH (07:57)
[2021-11-27] MEDS: SUCRALFATE 1 GM TABLET PO SCH ×4 (07:58→20:24)
[2021-11-27] MEDS: ASPIRIN EC 81 MG TAB PO SCH (07:58)
[2021-11-27 14:35] VITALS: O2SAT 97
--- NOTE | 2021-11-27 16:07 | P.PN ---
Subjective Date of Service: 11/27/21 Chief Complaint: Chest pain Subjective: Improving (No new complaints) Review of Systems weakness Physical Examination - Vital Signs Temperature: 97.6 F Blood Pressure: 170/91 Pulse: 67 Respirations: 20 Pulse Ox (%): 94 - Physical Exam General: Alert, In no apparent distress, Oriented x3 Cardiovascular: No edema, Regular rate/rhythm Gastrointestinal: Normal bowel sounds Neurological: Normal speech, Normal strength at 5/5 x4 extr, Cranial nerves 3-12 intact Assessment And Plan - Current Problems (Diagnosis) (1) Chest pain Current Visit: Yes Status: Acute Qualifiers: Chest pain type: unspecified Qualified Code(s): R07.9 - Chest pain, unspecified (2) Stroke Current Visit: Yes Status: Acute Qualifiers: Laterality of affected vessel: unspecified - Plan AGe 71 AW chest pain, [place] r/o [place] cardiology / NE of progressive stroke/ labs mild anemia. Stable for transfer to [place]. Pt unable to walk was undergoing rehab for stroke
[2021-11-27] MEDS: ATORVASTATIN 80 MG TAB PO SCH (20:25)
[2021-11-28 04:29] VITALS: BP 138/27; TEMP 98.2
--- NOTE | 2021-11-28 09:00 | P.DS ---
Admission Date: 11/25/21 Discharge Date: 11/28/21 Disposition: TRANSFER TO ASSISTED Discharge Condition: GOOD Reason for Admission: Chest pain - Problems (1) Chest pain Status: Acute Qualifiers: Chest pain type: unspecified Qualified Code(s): R07.9 - Chest pain, unspecified (2) Stroke Status: Acute Qualifiers: Laterality of affected vessel: unspecified Brief History of Present Illness: Patient is 71 years of age admitted with chest pain HI ruled out rehabilitating in the half-way after a stroke uncomplicated stay mild was ruled out normal echo no EKG changes Vital Signs/Physical Exam: Temp Pulse Resp BP Pulse Ox 98.2 F 71 18 138/27 L 95 11/28/21 04:00 11/28/21 04:00 11/28/21 04:00 11/28/21 04:00 11/28/21 04:00 Laboratory Data at Discharge: WBC 4.7 K/uL (4.3-10.9) 11/26/21 03:00 Hgb 10.1 g/dL (12.0-15.0) L 11/26/21 03:00 Hct 29.3 % (36.0-45.0) L 11/26/21 03:00 Plt Count 378 K/uL (152-406) 11/26/21 03:00 PT 12.2 SECONDS (9.5-12.5) 11/25/21 03:30 INR 1.11 11/25/21 03:30 Sodium 140 mmol/L (136-145) 11/26/21 03:00 Potassium 3.6 mmol/L (3.5-5.1) 11/26/21 03:00 BUN 5 mg/dL (7-18) L 11/26/21 03:00 Creatinine 0.91 mg/dL (0.55-1.3) 11/26/21 03:00 Glucose 107 mg/dL (74-106) H 11/26/21 03:00 Magnesium 2.2 mg/dL (1.8-2.4) 11/25/21 03:30 Total Bilirubin 0.9 mg/dL (0.2-1.0) 11/26/21 03:00 AST 8 U/L (15-37) L 11/26/21 03:00 ALT 17 U/L (12-78) 11/26/21 03:00 Alkaline Phosphatase 78 U/L (45-117) 11/26/21 03:00 Lipase 96 U/L (73-393) 11/25/21 03:30 Home Medications: Acetaminophen 650 mg PO Q6HP PRN 11/25/21 Amlodipine Besylate [Norvasc] 10 mg PO DAILY 11/25/21 Aspirin 81 mg PO DAILY 11/25/21 Atorvastatin Calcium [Lipitor] 80 mg PO BEDTIME 11/25/21 Clopidogrel Bisulfate [Plavix*] 75 mg PO DAILY 11/25/21 Folic Acid 1 mg PO DAILY 11/25/21 Ipratropium/Albuterol Sulfate [Combivent Respimat 20-100 Mcg] 2 puff IH QID 11/25/21 Lactulose 20 gm PO DAILY 11/25/21 Loratadine 10 mg PO DAILY 11/25/21 Magnesium Oxide [Mag 0X*] 400 mg PO DAILY 11/25/21 Sennosides/Docusate Sodium [Senna Plus 8.6-50 mg Softgel] 2 cap PO DAILY 11/25/21 Tramadol HCl [Ultram] 50 mg PO Q6HP PRN 11/25/21 carvediloL [Carvedilol] 6.25 mg PO BID 11/25/21 methocarbamoL [Methocarbamol] 500 mg PO Q8HP PRN 11/25/21 Physician Discharge Instructions: PROBLEM: Chest Pain GOAL: Clear understanding of disease process INSTRUCTIONS: Follow up with Primary Care Provider in 1-2 weeks, call to schedule an appointment. Call 911 or go to the nearest ED for any worsening symptoms. Diet: Heart Healthy Activity: As tolerated [employer] Services Needed: [facility] Name of Company: [employer] Date or Referral: IMMUNIZATION Influenza Vaccine Indicated: No Influenza Vaccine Given: No Date Given: Pneumonia Vaccine Indicated: No Pneumonia Vaccine Given: No Date Given: Diet: Regular Activity: Ad tonya Followup: Unknown,U [Primary Care Provider] - 1-2 Weeks ([facility] to schedule an appointment)
== END 2021-11-28 04:45 ==
LOC: ER 02:53 → ERHOLD 04:51 → 2ND 11-26 20:04
PROVIDERS: ADMIT Internal Medicine Nephrology; ATTEND Internal Medicine Sleep Medicine
DX: R07.9 Chest pain, unspecified (principal); D64.9 Anemia, unspecified; I10 Essential (primary) hypertension; J44.9 Chronic obstructive pulmonary disease, unspecified; E78.5 Hyperlipidemia, unspecified; I85.00 Esophageal varices without bleeding; K21.9 Gastro-esophageal reflux disease without esophagitis; I07.1 Rheumatic tricuspid insufficiency; I51.7 Cardiomegaly; Z86.73 Personal history of transient ischemic attack (TIA), and cerebral infarction without residual deficits; Z85.42 Personal history of malignant neoplasm of other parts of uterus; Z79.02 Long term (current) use of antithrombotics/antiplatelets; Z79.82 Long term (current) use of aspirin; Z79.899 Other long term (current) drug therapy; Z88.2 Allergy status to sulfonamides; Z88.6 Allergy status to analgesic agent; Z20.822 Contact with and (suspected) exposure to COVID-19
CPT/HCPCS: 93005; 93306; 85025 ×2; 80048; 36415 ×2; 83735; 85610; 80076; 81003 ×2; 84484 ×3; 83690; 80053; 83880; 70450; 71045; 96375; 96372; 96374; 99285; U0003; J1650 ×3; J3010; G0378 ×6; J2405